=== PATIENT | female | born 1970 | race Caucasian/White ===

== ENCOUNTER → 2016-12-18 | Outpatient (CLI) | payer BC ==
[~2016-12-18] MED LIST: ADVIN25/60 INH; ALBU1AER9 INH; CALCTAB5 PO; DILT240C56 PO; FEXO5TAB2 PO; HYDR25TA5 PO; KRIL1CAP16 PO; LEVO75TA PO; MOME50SP5; MONT1TAB3 PO; NPR250 PO; POME1CAP PO; PROM12.57 PO; PRVC/40 PO; SUMA100T16 PO; [UNRECOGNIZED DRUG - CODE] PO; [UNRECOGNIZED DRUG - CODE] TOP
--- NOTE | 2016-12-19 14:41 | MAMMOGRAPHY REPORT ---
BILATERAL DIGITAL SCREENING MAMMOGRAM TOMOSYNTHESIS WITH CAD: 12/18/2016 CLINICAL HISTORY: Routine screening. Patient has no complaints. TECHNIQUE: Breast tomosynthesis in addition to standard 2D mammography was performed. Current study was also evaluated with a Computer Aided Detection (CAD) system. COMPARISON: Comparison is made to exams dated: 12/13/2015 mammogram, 02/14/2015 mammogram, 11/23/2014 m ammogram, 09/14/2013 mammogram, 09/05/2012 mammogram, and 09/03/2011 mammogram - [facility]. BREAST COMPOSITION: The tissue of both breasts is heterogeneously dense, which may obscure small ma sses. FINDINGS: There is reniform, benign-appearing 7.5 mm mass in the upper outer quadrant of the right b reast. This appears stable in size based on prior mammograms dating back to at least 09/14/2013, th erefore likely benign. No new suspicious mass, architectural distortion or cluster of microcalcific ations is seen. IMPRESSION: ACR BI-RADS CATEGORY 1: NEGATIVE There is no mammographic evidence of malignancy. A 1 year screening mammogram is recommended. The p atient will receive written notification of the results. Approximately 10% of breast cancers are not detected with mammography. A negative mammographic repor t should not delay biopsy if a clinically suggestive mass is present. Savita Bagley M.D. ay/:12/18/2016 21:58:04 City Manager: Laila CRAWFORD(R)(M), [facility] letter sent: Normal 1/2 BI-RADS Code: ACR BI-RADS Category 1: Negative
== END | disposition home or self-care (01) ==
LOC: C.MAMM 07:28
PROVIDERS: ATTEND Obstetrics & Gynecology
DX: Z12.31 Encounter for screening mammogram for malignant neoplasm of breast (principal)

== ENCOUNTER → 2017-03-14 | Outpatient (CLI) | payer BC ==
[~2017-03-14] MED LIST changes: +DILT-203 PO; -DILT240C56 PO
== END | disposition home or self-care (01) ==
LOC: C.PAPS 10:04
PROVIDERS: ATTEND Obstetrics & Gynecology
DX: Z01.419 Encounter for gynecological examination (general) (routine) without abnormal findings (principal)

== ENCOUNTER 2017-09-13 08:41 | Observation (INO) | payer BC ==
[2017-08-29 13:14] VITALS: BMI 35.0
--- NOTE | 2017-08-29 14:02 | PAT Medication Instructions ---
Service Date Aug 29, 2017. Current Home Medication List Adapalene Gel (Differin), 1 APPLN TOP DAILY PRN for UD Albuterol Hfa (Ventolin Hfa), 2 PUFFS INH Q4H PRN for RN Cholecalciferol (Vitamin D3), 1 CAP PO QPM Coenzyme Q10 (Ubidecarenone) (Coq10), 100 MG PO QAM Cyanocobalamin (Vitamin B12), 1,000 MCG PO QAM Diltiazem Hcl Coated Beads (Diltiazem Cd), 240 MG PO BID Fexofenadine-Pseudoephedrine (Rebecca-D 12 Hour Allergy), 1 TAB PO BID Fluticasone Prop/Salmeterol (Advair Diskus 250/50 60 Dose), 1 PUFF INH BID Hydrochlorothiazide (Hydrochlorothiazide), 25 MG PO HS Krill Oil (Una-3 Krill Oil 1000 mg), 1 CAP PO QPM Levothyroxine Sodium (Synthroid), 75 MCG PO Q2D Levothyroxine Sodium (Levothyroxine Sodium), 1.25 TAB PO Q2D Mometasone Furoate (Nasal) (Mometasone Furoate), 1 SPRAY INTNAS BID Montelukast Sodium (Singulair), 10 MG PO HS Naproxen Ds (Naprosyn Ds), 550 MG PO BID Pomegranate (Punica Granatum) (Pomegranate), 1 CAP PO QPM Potassium Ext Rel (Klor-Con), 20 MEQ PO QPM Pravastatin Sod (Pravastatin Sodium), 40 MG PO HS Promethazine (Phenergan ), 25 MG PO Q6H PRN for Nausea or Vomiting Sumatriptan Succinate (Imitrex), 100 MG PO PRN Varenicline Tartrate (Chantix), 1 TAB PO BID [Calcium ], 600 MG PO HS Medication Instructions For Your Scheduled Surgery - Check with surgeon for instructions: Naproxen Ds (Naprosyn Ds), 550 MG PO BID - Continue as directed: Levothyroxine Sodium (Synthroid), 75 MCG PO Q2D Levothyroxine Sodium (Levothyroxine Sodium), 1.25 TAB PO Q2D - Hold the following medications 2 weeks prior to surgery: Pomegranate (Punica Granatum) (Pomegranate), 1 CAP PO QPM Krill Oil (Una-3 Krill Oil 1000 mg), 1 CAP PO QPM Coenzyme Q10 (Ubidecarenone) (Coq10), 100 MG PO QAM - Hold the following medications 24 hours prior to surgery: Adapalene Gel (Differin), 1 APPLN TOP DAILY PRN for UD - Hold the following medications the morning of surgery: Varenicline Tartrate (Chantix), 1 TAB PO BID Fexofenadine-Pseudoephedrine (Rebecca-D 12 Hour Allergy), 1 TAB PO BID Cyanocobalamin (Vitamin B12), 1,000 MCG PO QAM - Take the following medications the morning of surgery with a sip of water: Sumatriptan Succinate (Imitrex), 100 MG PO PRN i(if needed) Promethazine (Phenergan ), 25 MG PO Q6H PRN for Nausea or Vomiting i(if needed) Mometasone Furoate (Nasal) (Mometasone Furoate), 1 SPRAY INTNAS BID Fluticasone Prop/Salmeterol (Advair Diskus 250/50 60 Dose), 1 PUFF INH BID Albuterol Hfa (Ventolin Hfa), 2 PUFFS INH Q4H PRN for RN i(if needed) Diltiazem Hcl Coated Beads (Diltiazem Cd), 240 MG PO BID - Take the following medications as scheduled the night before surgery: [Calcium ], 600 MG PO HS Varenicline Tartrate (Chantix), 1 TAB PO BID Sumatriptan Succinate (Imitrex), 100 MG PO PRN i(if needed) Promethazine (Phenergan ), 25 MG PO Q6H PRN for Nausea or Vomiting i(if needed) Potassium Ext Rel (Klor-Con), 20 MEQ PO QPM Pravastatin Sod (Pravastatin Sodium), 40 MG PO HS Mometasone Furoate (Nasal) (Mometasone Furoate), 1 SPRAY INTNAS BID Montelukast Sodium (Singulair), 10 MG PO HS Hydrochlorothiazide (Hydrochlorothiazide), 25 MG PO HS Fluticasone Prop/Salmeterol (Advair Diskus 250/50 60 Dose), 1 PUFF INH BID Fexofenadine-Pseudoephedrine (Rebecca-D 12 Hour Allergy), 1 TAB PO BID Cholecalciferol (Vitamin D3), 1 CAP PO QPM Diltiazem Hcl Coated Beads (Diltiazem Cd), 240 MG PO BID Albuterol Hfa (Ventolin Hfa), 2 PUFFS INH Q4H PRN for RN i(if needed) If you have any questions please call us at [phone] or [phone] or [phone]
[2017-08-29 14:53] LABS: BASO % 0.2 %; BASO ABS # 0.02 K/uL (0-0.2); EOS % 0.9 %; EOS ABS # 0.09 K/uL (0-0.5); HEMATOCRIT 42.8 % (37-47); IG# 0.04 K/uL (0.00-0.02); LYMPH % 28.8 %; LYMPH ABS # 2.73 K/uL (1.2-3.4); MEAN CELL VOLUME 89.5 fL (80-100); MEAN CORPUSCULAR HEMOGLOBIN 31.4 pg (25-34); MEAN PLATELET VOLUME 9.9 fL (7.4-10.4); MONO % 11.2 %; MONO ABS # 1.06 K/uL (0.11-0.59); NEUT % 58.5 %; NEUT ABS # 5.54 K/uL (1.4-6.5); PLATELET COUNT 378 K/uL (130-400); RED CELL DISTRIBUTION WIDTH CV 13.2 % (11.5-14.5); WHITE BLOOD COUNT 9.48 K/uL (4.8-10.8)
[2017-08-29 14:55] LABS: CALCIUM 9.4 mg/dl (8.5-10.1); CREATININE 0.73 mg/dl (0.60-1.20); POTASSIUM 3.2 mmol/L (3.5-5.1)
[~2017-09-13] VITALS: Ht 154.9 cm; Wt 83.8 kg
[2017-09-13] VITALS (9 sets, daily range): BP systolic 107–139; BP diastolic 61–77; PULSE 88–105; TEMP 36.4–36.9; O2SAT 92–98; Ht 154.9 cm; Wt 83.8 kg
[~2017-09-13 08:41] MED LIST changes: -ALBU1AER9 INH; +CALCIUM PO; -CALCTAB5 PO; +CHOL2000 PO; +CLINDAMYCIN 600 MG/54 ML D5W 50 ML IV SCH; +COEN100C7 PO; +CYAN100020 PO; +GENTAMICIN INJ 130 MG in DEXTROSE 5% 100ML 100 ML IV SCH; +LACTATED RINGER'S 1000ML 1,000 ML IV SCH; +LEVO75TA5 PO; -MOME50SP5; +MOME6000 INTNAS; +NAPR550T61 PO; -NPR250 PO; +POTA-639 PO; +VAREPAK2 PO; +VNTHFA/IN INH; -[UNRECOGNIZED DRUG - CODE] PO
[2017-09-13] MEDS ORDERED: DEXT30TA7 PO (09:10)
[2017-09-13] MEDS ORDERED: MIDAZOLAM HCL 1 MG/ML 2ML VIAL ONE (10:06)
[2017-09-13] MEDS ORDERED: PROPOFOL IV EMULSION 10 MG/ML 20 ML VIAL IV ONE (10:06)
[2017-09-13] MEDS ORDERED: ROCURONIUM BROMIDE 10 MG/ML 5 ML VIAL IV ONE ×2 (10:06→12:22)
[2017-09-13] MEDS ORDERED: LIDOCAINE HCL 2% 2 ML VIAL (20MG/ML) ONE (10:06)
[2017-09-13] MEDS ORDERED: FENTANYL CITRATE INJ 50 MCG/1 ML 2 ML VIAL ONE ×4 (10:06→12:28)
--- NOTE | 2017-09-13 10:23 | History & Physical Bridge Note ---
H&P Re-Evaluation Bridge Note: I have examined the patient, reviewed the History & Physical and in the interval since the performance of the History & Physical I have noted the following changes of clinical significance: No changes noted
[2017-09-13] MEDS ORDERED: BUPIVACAINE 0.5 % 5 MG/1 ML MPF 30ML VIAL ONE (10:45)
[2017-09-13] MEDS ORDERED: METHYLENE BLUE 0.5% 10 ML VIAL ONE (10:45)
[2017-09-13] MEDS ORDERED: ACETAMINOPHEN 1000 MG/100 ML IV IV ONE (10:49)
[2017-09-13] MEDS ORDERED: PROMETHAZINE HCL INJ 6.25 MG in SODIUM CHLORIDE 0.9% 50ML 50 ML IV PRN (11:45)
[2017-09-13] MEDS ORDERED: EpHEDrine SULFATE INJ 50 MG/ML AMP IV PRN (11:45)
[2017-09-13] MEDS ORDERED: ONDANSETRON INJ 2 MG/ML 2 ML VIAL IV PRN (11:45)
[2017-09-13] MEDS ORDERED: HYDROmorphone INJ 1 MG/ML SYR IV PRN (11:45)
[2017-09-13] MEDS ORDERED: ATROPINE SULFATE 0.1 MG/ML 5ML SYR IV PRN (11:45)
[2017-09-13] MEDS ORDERED: DEXAMETHASONE SOD INJ 4 MG/ML VIAL ONE (12:08)
[2017-09-13] MEDS ORDERED: ONDANSETRON INJ 2 MG/ML 2 ML VIAL ONE (12:08)
[2017-09-13] MEDS: TISSEEL FIBRIN SEALANT 4ML TOP ONE ×2 (12:47→12:49)
[2017-09-13] MEDS ORDERED: NEOSTIGMINE METHYLSULFATE 5 MG/5 ML SYR ONE (12:56)
[2017-09-13] MEDS ORDERED: GLYCOPYRROLATE INJ 0.2 MG/ML VIAL ONE (12:56)
[2017-09-13] MEDS ORDERED: KETOROLAC TROMETHAMINE 30 MG/ML VIAL ONE (12:56)
[2017-09-13] MEDS ORDERED: LACTATED RINGER'S 1000ML 1,000 ML IV SCH (13:12)
[2017-09-13] MEDS ORDERED: OXYC-57 PO (13:15)
[2017-09-13] MEDS ORDERED: IBUPROFEN 600 MG TAB PO PRN (13:15)
[2017-09-13] MEDS ORDERED: MEPERIDINE HCL 50 MG/ML CARP IV PRN ×2 (13:15)
[2017-09-13] MEDS ORDERED: SIMETHICONE 80 MG CHEW PO PRN (13:15)
[2017-09-13] MEDS ORDERED: ACETAMINOPHEN 325 MG TAB PO PRN (13:15)
[2017-09-13] MEDS ORDERED: OXYCODONE/ACETAMINOPHEN 5-325 TAB PO PRN ×2 (13:15)
[2017-09-13] MEDS ORDERED: KETOROLAC TROMETHAMINE 30 MG/ML VIAL IV. PRN (13:15)
--- NOTE | 2017-09-13 13:16 | Discharge Instructions ---
Discharge Instructions Date of Service Sep 13, 2017. Admission Reason for Admission: Dysmenorrhea Discharge Discharge Diagnosis / Problem: s/p laproscopic hysterectomy , removal of bilateral tubes, cystoscopy Discharge Goals Goal(s): Specific Goal(s) Activity Recommendations Activity Limitations: per Instructions/Follow-up section . Instructions / Follow-Up Instructions / Follow-Up POST OPERATIVE: BOWEL FUNCTION/MEDICATIONS: 1. Constipation pain and discomfort are the most common complaints 5-7 days after surgery. Points 2-6 address the things that can help. 2. Chewing gum can help stimulate the gut and help improve digestion and motility. 3. Milk of Magnesia 1-2 times per day until return of bowel function. 4. Colace is a stool softener that helps. Taking this 2-3 times per day until bowel function returns to normal is highly recommended. 5. Dulcolax is a laxative that may be used if several days have passed without a bowel movement. Alternatively Miralax may be used daily instead. 6. Drink plenty of fluids as this will also reduce constipation. 7. Narcotic pain medications will be prescribed by your physician. They are safe to use and we encourage you to use them. If you are not allergic, ibuprofen will also be prescribed. Many patients will be able to transition off of the narcotic medications to ibuprofen by postoperative day 3. ACTIVITY RECOMMENDATIONS: 1. Get plenty of rest and listen to your body. If you are tired, take a nap. 2. You may shower, but do not take a tub bath until you see your doctor at the 2 week post operative visit. 3. Absolutely NO intercourse and nothing in the vagina until you are examined by your doctor at the 6 week visit. At that visit it will be determined when such activities can be resumed. This can range from 6-12 weeks after your surgery depending on healing time. 4. The main physical activity in the first week should be walking. By the second week you can slowly increase activity. There are no limits on walking up and down stairs. 5. Do not lift more than 5-10 lbs for 4 weeks. Remember the "one-handed rule", i.e. if you can lift something with only one hand it's likely okay. 6. Minimize director of outreach like vacuuming and exercising for 4 weeks. "Overdoing it" can lead to incisions not healing, pain and vaginal bleeding , so again, listen to your body. 7. Driving can be resumed when you feel able. Do not drive within 24 hours of taking a narcotic medication. EXPECTATIONS: 1. Vaginal spotting, bleeding and discharge are common after surgery. There may even be an odor to the discharge which is often related to sutures used in the vagina. If you experience heavy vaginal bleeding, call the office number day or night [phone]. 2. Bladder discomfort is common after surgery from the catheter. This usually resolves in 1-2 weeks. 3. By the end of the 3rd or 4th week you should be feeling much better. It may take up to 6 weeks for your energy levels to return to normal. 4. Narcotic medications have side effects such as: dizziness, headache, nausea and/or vomiting. If you suspect your pain medication is causing problems, call our office and we may be able to prescribe an alternate medication. 5. The skin incisions are often covered with a liquid bandage. This will gradually peel off over time. CALL THE OFFICE IF YOU HAVE ANY OF THE FOLLOWIN. Temperature of 101 degrees or higher. 2. Severe abdominal or pelvic pain not relieved by pain medication. 3. Persistent nausea or vomiting. 4. Increased pain with urination or difficulty urinating. 5. Bright red bleeding that soaks more than 1 pad per hour. CONTACT PHONE NUMBERS: Main Office: [phone] Surgical Nurse: [phone] extension [phone] FOLLOW-UP: Post-Operative Appointments: * Individual instructions will have been given about the timing of your first examination, but this is usually at the end of the second week home. * You will need to call the office at soon after discharge to make the appointment for your post-op check-up if it has not already been scheduled. * Additional information regarding activity, sexual intercourse and when to return to work will be given at this appointment. WE WISH YOU A SPEEDY RECOVERY! Current Hospital Diet Patient's current hospital diet: Discharge Diet Recommended Diet: Regular Diet Procedures Procedures Performed: Total Laparoscopic Hysterectomy Bilateral Salpingectomy Robot Asisst; Cystoscopy Pending Studies Studies pending at discharge: no Medical Emergencies . Who to Call and When: Medical Emergencies: If at any time you feel your situation is an emergency, please call 911 immediately. . Non-Emergent Contact Non-Emergency issues call your: Manager Plumbing . . "Provider Documentation" section prepared by Belkis North. . VTE Core Measure Inpt VTE Proph given/why not?: Treatment not indicated [place] Drug Monitoring Program Search Results: patient reviewed within database, no issues identified
--- NOTE | 2017-09-13 13:17 | [facility] Post Operative Brief Note ---
Immediate Operative Summary Operative Date Sep 13, 2017. Pre-Operative Diagnosis Dysmenorrhea Post-Operative Diagnosis Same as preop Procedure(s) Performed Total Laparoscopic Hysterectomy Bilateral Salpingectomy Robot Asisst; Cystoscopy Surgeon Dr. North Transitional Care Liaison Surgeon(s) Dr. Maharaj Estimated Blood Loss 50 ml Findings small, normal uterus, nl tubes, ovs. Specimens A. Cervix, Uterus, Bilateral Fallopian Tubes Drains wilburn Anesthesia gett Complication(s) None Disposition Recovery Room / PACU
[2017-09-13] MEDS: FENTANYL CITRATE INJ 50 MCG/1 ML 2 ML VIAL IV PRN ×2 (13:45→13:49)
[2017-09-13] MEDS ORDERED: IV FLUIDS COMPLETED PRN (14:00)
--- NOTE | 2017-09-13 14:26 | OPERATIVE REPORT ---
DATE OF OPERATION: 09/13/2017 PREOPERATIVE DIAGNOSES: 1. Failed ablation. 2. Dysmenorrhea and pelvic pain. POSTOPERATIVE DIAGNOSES: Same. PROCEDURES: 1. Total laparoscopic hysterectomy and bilateral salpingectomy via da Natali assist. 2. Cystoscopy. SURGEON: Belkis North MD CATALOG LIBRARY ASSISTANT: Melanie Maharaj DO ANESTHESIA: General per endotracheal tube. ESTIMATED BLOOD LOSS: 50 mL. FLUIDS: 1550 mL. URINE OUTPUT: 300 mL of clear yellow urine drained from the bladder at the end of the procedure. INDICATIONS: Loren is a 1, who had significant dysmenorrhea and heavy periods, for which she underwent an endometrial ablation. Unfortunately, this failed and she has cyclic pain and spotting. FINDINGS: Normal very small mobile uterus. Normal tubes and ovaries noted bilaterally. COMPLICATIONS: None. DRAINS: Guzman. DISPOSITION: To recovery room in stable condition. DESCRIPTION OF PROCEDURE: The patient was taken to the operating room, where she was identified verbally and by bracelet. She was placed in dorsal supine position and general anesthesia was induced. She was then placed in dorsal lithotomy position in [facility]-cane stirrups. Her arms were carefully prepped and tucked at her sides. Her chest was restrained and the wet process miller head assistant was placed. The patient was prepped and draped in normal sterile fashion. Timeout was held, identifying correct patient, procedure and positioning as well as preoperative antibiotics. Attention was turned to the vagina, where a speculum was placed. The anterior lip of the cervix was grasped with single tooth tenaculum. Uterus sounded to 6 cm and dilated to #23 Muna dilator. A [employer] uterine manipulator was placed into the uterus. The green cup was sutured to the cervix via suture of 0 Vicryl at 9 o'clock on the cervix. Instruments were then removed and a Guzman catheter was placed. Gloves were then changed. Attention was then turned to the abdomen, where a supraumbilical incision was made with a knife. Veress needle was placed through this at opening pressure of 6 mmHg. The abdomen was insufflated with 2.5 liters of carbon dioxide gas. A 12-mm optical trocar was then placed through this incision and direct intra-abdominal placement was confirmed via the laparoscope. Then under direct visualization, two 8-mm da Natali trocars were placed in left and right lower quadrant and a 10-mm accessory trocar in the left upper quadrant. The patient was placed into Trendelenburg position. The pelvis was evaluated with the above noted findings. The da Natali nursing surgical services director device was attached to the trocars and the byproducts operator proceeded to the console. First on the right, the tube was excised and passed out through the accessory trocar. The tubo-ovarian ligament and round ligament were cauterized and incised with hot senait. A bladder flap was created sharply with senait anteriorly. The uterine artery on the right was cauterized and cut with hot senait. In on a similar fashion on the left side, the tube was removed using hot senait and removed through the accessory trocar. The tubo-ovarian ligament and round ligament were cauterized and cut. The bladder flap was finished. The uterine artery was skeletonized, cauterized and cut. The bladder flap was created anteriorly. A colpotomy incision was then made in 365 degrees until the specimen was removed from the vaginal cuff and then was removed through the vagina. A 2-0 V-Loc suture was used to reapproximate the vaginal cuff. Cystoscopy was then performed with a 70-degree scope. There were no stitches or abnormalities noted in the bladder. The ureters were both visualized and found to be effluxing urine. Cystoscopy was then discontinued. The previous Guzman catheter had been removed and a new clean Guzman catheter was then placed sterilely. Tisseel was then used to treat the vaginal cuff and the intra-abdominal portion was completed. All instruments were removed from the abdomen. The da Ntaali nursing surgical services director device was removed from the patient. The gas was released from the abdomen. The trocars were removed. A fascial stitch at the supraumbilical trocar site was placed of 0 Vicryl. All incisions were then closed with 4-0 Vicryl in a subcuticular fashion. The incisions were injected with 0.5% Marcaine and treated with Dermabond. This ended the procedure. All sponge, lap and needle counts were correct x2. The patient tolerated the procedure well and was taken to recovery room in stable condition. I attest to the content of the Intraoperative Record and any orders documented therein. Any exception s are noted below.
--- NOTE | 2017-09-13 14:30 | NUR ---
A NOTE: Pt arrived to room 476 via bed. Sleepy but arouses to name and answers questions. Oriented to room, call holliday and post op rounding. See interventions for full assessment. Guzman intact and patent. Wearing SCDs. O2 on via n/c at 2L. IV infusing LR@125. Bed locked and in lowest position. Side rails up x2. Call holliday within reach. Hourly rounding maintained. Family at bedside. Addendum: 09/13/17 at 1642 by Maira Nixon RN OBS NOTE upon arrival.
--- NOTE | 2017-09-13 15:26 | Anesthesiology Progress Note ---
Anesthesia Post Op Note Date & Time Sep 13, 2017 at 15:26 Vital Signs Pain Intensity: 8.0 Vital Signs Past 12 Hours Date Time Temp Pulse Resp B/P (MAP) Pulse Ox O2 Delivery O2 Flow Rate FiO2 09/13/17 15:05 89 16 127/74 (91) 95 Nasal Cannula 2.0 09/13/17 15:02 36.6 92 16 133/74 (93) 92 Nasal Cannula 2.0 09/13/17 14:55 93 Nasal Cannula 2.0 09/13/17 14:22 92 15 09/13/17 14:22 92 15 93 09/13/17 14:20 104/56 09/13/17 14:17 82 16 09/13/17 14:17 81 16 93 09/13/17 14:15 112/58 09/13/17 14:12 95 16 94 09/13/17 14:12 95 16 09/13/17 14:10 125/72 09/13/17 14:07 95 15 93 09/13/17 14:07 96 15 09/13/17 14:06 91 18 09/13/17 14:06 92 18 94 09/13/17 14:05 109/60 09/13/17 14:03 36.3 94 16 109/60 (84) 93 Nasal Cannula 3 Oxymask 09/13/17 14:01 96 13 09/13/17 14:01 96 13 91 09/13/17 14:00 101/71 09/13/17 13:56 88 13 90 09/13/17 13:56 89 13 09/13/17 13:55 112/63 09/13/17 13:51 88 15 90 09/13/17 13:51 88 15 09/13/17 13:50 90 15 111/78 92 09/13/17 13:50 91 15 09/13/17 13:45 95 18 09/13/17 13:45 95 18 116/73 92 09/13/17 13:40 98 22 09/13/17 13:40 99 22 115/72 96 09/13/17 13:35 95 19 117/71 96 09/13/17 13:35 95 19 09/13/17 13:30 95 18 09/13/17 13:30 95 18 119/71 96 09/13/17 13:29 95 21 09/13/17 13:29 95 21 97 09/13/17 13:25 116/75 09/13/17 13:24 101 19 09/13/17 13:24 101 19 99 09/13/17 13:20 118/64 09/13/17 13:19 98 23 09/13/17 13:19 36.3 100 20 110/76 (102) 97 Oxymask 10 09/13/17 13:19 98 23 110/76 97 09/13/17 09:12 36.6 105 18 139/77 (97) 98 Room Air Notes Mental Status: alert / awake / arousable, participated in evaluation Pt Amnestic to Procedure: Yes Nausea / Vomiting: adequately controlled Pain: adequately controlled Airway Patency, RR, SpO2: stable & adequate BP & HR: stable & adequate Hydration State: stable & adequate Anesthetic Complications: no major complications apparent
--- NOTE | 2017-09-13 17:30 | NUR ---
A: Guzman Cath pulled, Right IV site saline locked and D/C'd. Patient tolerating PO liquid dinner.
--- NOTE | 2017-09-13 18:30 | NUR ---
OBS: Patient up to void, voided small amount in hat, walking around in room, left wrist SL site intact.
--- NOTE | 2017-09-13 19:35 | NUR ---
OBS: Patient's vital remain stable at this time. Patient up, moving, and voiding. Patient eating dinner at this time. Percocet given prior to 1935 assessment. Patient's lungs are clear, bowel sounds are present although patient denies passing gas. Patient using triflow. Saline lock remains intact in left hand at this time. Patient's 4 lap site are clean and dry with dermabond intact. No vaginal bleeding present.
[2017-09-13] MEDS ORDERED: INFLUENZA ADMINISTRATION CHARGE ONE (20:45)
[2017-09-13] MEDS ORDERED: INFLUENZA VIRUS QUAD VACCINE 0.5 ML SYR IM. ONE (20:45)
[2017-09-13] MEDS ORDERED: DOCUSATE SODIUM 100 MG CAP PO SCH (21:00)
--- NOTE | 2017-09-13 21:25 | NUR ---
OBS: Patient up, moving, and voiding. Patient reports Percocet relieving her pain. Patient able to drink fluids and keep dinner down and does not feel nauseated from dinner or pain medication. Saline lock was removed at 2049. Discharge instructions read to patient at 2114. Patient verbalized understanding. Patient discharged in care of at 2124.
--- NOTE | 2017-09-17 09:19 | DISCHARGE SUMMARY ---
ADMISSION DIAGNOSES: Failed ablation with worsening dysmenorrhea. DISCHARGE DIAGNOSES: Same. PROCEDURES: Total laparoscopic hysterectomy and bilateral salpingectomy with cystoscopy. HISTORY OF PRESENT ILLNESS: The patient is a 47-year-old white female G0, status post ablation who has worsening pain, dysmenorrhea over the past year. This pain has become debilitating and she would like to proceed with hysterectomy. She has contraindications to estrogen. She declines other hormonal manipulation. She has very little bleeding, just severe cramping and this is interfering with her daily life and ability to work. For the rest of the patient's detailed history and physical, please see her dictated history and physical. ASSESSMENT: A 47-year-old G0 with debilitating pelvic pain/dysmenorrhea status post failed ablation. HOSPITAL COURSE: The patient was admitted and underwent a total laparoscopic hysterectomy and bilateral salpingectomy via the da Natali with cystoscopy. ESTIMATED BLOOD LOSS: 50 mL. FINDINGS AT THE TIME OF SURGERY: Revealed a very small mobile uterus, normal tubes and ovaries noted bilaterally. The patient's postoperative course was uncomplicated. She tolerated a regular diet, voided without difficulty after the removal of her Guzman, ambulated, tolerated oral pain medications. She was discharged home on postoperative day 0 with Percocet and ibuprofen for pain and to follow up in 2 weeks for postoperative visit.
== END 2017-09-13 21:25 | disposition home or self-care (01) ==
LOC: C.ACU 08:41 → C.MS4N 13:14 → ENRESERV 14:09
PROVIDERS: ADMIT Obstetrics & Gynecology; ATTEND Obstetrics & Gynecology
DX: N94.6 Dysmenorrhea, unspecified (principal); E78.5 Hyperlipidemia, unspecified; I10 Essential (primary) hypertension; J45.909 Unspecified asthma, uncomplicated; E03.9 Hypothyroidism, unspecified; G47.33 Obstructive sleep apnea (adult) (pediatric); F17.200 Nicotine dependence, unspecified, uncomplicated; K21.9 Gastro-esophageal reflux disease without esophagitis; F41.9 Anxiety disorder, unspecified; Z82.5 Family history of asthma and other chronic lower respiratory diseases; Z82.49 Family history of ischemic heart disease and other diseases of the circulatory system; Z80.49 Family history of malignant neoplasm of other genital organs; Z80.3 Family history of malignant neoplasm of breast; Z84.1 Family history of disorders of kidney and ureter; Z83.42 Family history of familial hypercholesterolemia; Z88.0 Allergy status to penicillin

== ENCOUNTER → 2017-12-24 | Outpatient (CLI) | payer OTHER ==
[~2017-12-24] MED LIST changes: -CLINDAMYCIN 600 MG/54 ML D5W 50 ML IV SCH; +DEXT30TA7 PO; -GENTAMICIN INJ 130 MG in DEXTROSE 5% 100ML 100 ML IV SCH; -LACTATED RINGER'S 1000ML 1,000 ML IV SCH; +NAPR-1168 PO; -NAPR550T61 PO; +OXYC-57 PO
--- NOTE | 2017-12-24 12:52 | MAMMOGRAPHY REPORT ---
BILATERAL DIGITAL SCREENING MAMMOGRAM TOMOSYNTHESIS WITH CAD: 12/24/2017 CLINICAL HISTORY: Routine screening. Patient has no complaints. TECHNIQUE: Breast tomosynthesis in addition to standard 2D mammography was performed. Current study was also evaluated with a Computer Aided Detection (CAD) system. COMPARISON: Comparison is made to exams dated: 12/18/2016 mammogram, 12/13/2015 mammogram, 11/23/2014 ma mmogram, 09/14/2013 mammogram, 09/05/2012 mammogram, and 02/19/2006 mammogram - [facility] enter. BREAST COMPOSITION: The tissue of both breasts is heterogeneously dense, which may obscure small mas ses. FINDINGS: The parenchymal pattern is similar to prior exams. No developing mass, architectural dist ortion or cluster of suspicious microcalcifications is seen in either breast. IMPRESSION: ACR BI-RADS CATEGORY 2: BENIGN There is no mammographic evidence of malignancy. A 1 year screening mammogram is recommended. The pa tient will receive written notification of the results. Approximately 10% of breast cancers are not detected with mammography. A negative mammographic report should not delay biopsy if a clinically suggestive mass is present. Savita Bagley M.D. ay/:12/24/2017 08:47:27 Umbrella Repairer: Jerrica CRAWFORD(R)(M), [facility] letter sent: Normal 1/2 BI-RADS Code: ACR BI-RADS Category 2: Benign
== END | disposition home or self-care (01) ==
LOC: C.MAMM 08:03
PROVIDERS: ATTEND Obstetrics & Gynecology
DX: Z12.31 Encounter for screening mammogram for malignant neoplasm of breast (principal)

== ENCOUNTER → 2018-01-31 | Outpatient (CLI) | payer OTHER ==
--- NOTE | 2018-01-31 09:00 | DIAGNOSTIC IMAGING REPORT ---
VENOUS DOPP LOWER EXT UNILAT HISTORY: 47 years-old Female LEFT LEG PAIN AND SWELLING, R/O DVT acute left leg pain and swelling COMPARISON: None available TECHNIQUE: Multiple real-time sonographic images of the left lower extremity deep venous structures were obtained assessing grayscale appearance, color and spectral flow FINDINGS: There is normal compressibility, flow, phasicity and augmentation of the left lower extremity deep venous structures. IMPRESSION: No sonographic evidence of deep venous thrombosis. The above report was generated using voice recognition software. It may contain grammatical, syntax or spelling errors. Electronically signed by: Kieran Rollins M.D. 01/31/2018 8:58 AM Dictated Date/Time: 01/31/2018 8:57 AM
== END | disposition home or self-care (01) ==
LOC: C.ULTRBC 08:27
PROVIDERS: ATTEND Family Medicine
DX: R60.9 Edema, unspecified (principal)

== ENCOUNTER 2020-06-12 03:58 | Inpatient (IN) ==
[2020-06-12] MEDS ORDERED: NITROGLYCERIN SL 0.4 MG/TAB TAB SL STA (04:15)
[2020-06-12] MEDS ORDERED: ASPIRIN 81 MG CHEW PO STA (04:15)
--- NOTE | 2020-06-12 04:19 | Emergency Department Note ---
Impression & Plan Acute non-ST elevation myocardial infarction (NSTEMI) ED Provider Note Name: FELICITAS MILLER Age: 49 Sex: F Arrives Via: Walk-In Informant: Patient, ED Provider: Michael Mayes MD Chief Complaint: Left chest pain Impression: Acute non-ST elevation myocardial infarction (NSTEMI) Medical Decision Makin yr old female with history DMII, HTN, DLP, Tobacco use, asthma and father with CAD history arrives with left chest pain to shoulder, neck and back. This is second occurrence in last 24 hours. EKG on arrival with ischemic changes from previous EKG but no overt STEMI. Initially pain improving some with SLNTG/Paste, as well as given ASA 324mg PO. Repeat EKG similar as well. CXR OK. Labs unremarkable other than trop elevation to .118. Patient given 3 round slntg and pain no resolved, if anything mildly worsening. At this time heart alert called as patient continued pain with abnormal EKG and elevated trop. She was given IV fentanyl with improvement pain and repeat EKG at this time actually shows significant improvement. Prior Medical Record and Triage/Nursing Notes reviewed by Me Additional history obtained from chart Differentials:Cardiac ischemia, aortic dissection, pulmonary embolism, pneumothorax, pneumonia, pericarditis, myocarditis, esophageal rupture, GERD, cholecystitis, pancreatitis, musculoskeletal, as well as other pathologies. Vital Signs: reviewed and remarkable for no significant abnormalities Interventions: ASA 324mg PO, SLNTG x 3, Nitro Paste, Fentanyl 50mcg IV Labs:Reviewed and remarkable for +trop, modestly elevated WBC/Plts Imaging:X ray results are stated below per my interpretation: Chest: 1 view: No infiltrate, no effusion, normal cardiac border. EKG:Per My Interpretation: Indication Left Chest Pain: NSR 70 bpm, qtc 434. There are ST depression ant/laterally, and < 1mm st elevation III. T wave inversions noted anterior as well. No ectopy.. Compared to EKG 11/10/19 ischemic changes are new. Cardiac/Tele Monitoring: Cardiac Monitoring: An Order was placed for continuous cardiac monitoring. The monitor shows a rate of 75 with a normal sinus rhythm. Consults:Dr Campbell Interventional Cardiology who took patient to irrigation laborer Plan: Disposition: Dial Lathe Operator Condition: Fair Prescriptions: none PDMP: n/a History of Present Illness:49 yr old female with history dmii, htn, dlp, asthma, tobacco use arrives for evaluation of left chest pain. She notes she was sitting at home yesterday around 1 pm and developed crushing left chest pain. Radiated to left shoulder, back and neck. Nothing made better nor worse. Eventually eased up after about an hour. Was awoken about an hour ago with similar left chest pain though much less in intensity. Denies palpitations, sob, syncope, nausea, vomiting, nor other symptoms. Denies previous cardiac history. Father with [place] in his 50s. No recent travel nor PE/DVT risks/history. She denies falls, trauma, injury nor recent increase in exertion. Denies fevers, chills, abdominal pain, lower back pain, urinary/bowel changes, nor other symptoms. No medications prior to arrival. ROS: See above HPI for pertinent positives & negatives. A total of 10 systems reviewed and were otherwise negative. Past Medical History:dmii, htn, dlp, asthma, tobacco use Past Surgical History:hysterectomy Family History:Extensive, see below. Father with [place] Social History:Smoker, lives with Home Medications:See Below Allergies:PNC, Benadryl Vitals:Blood Pressure: 119/78, Pulse 76, RR 18, T 36.3C, O2 97% on RA Physical Exam: GENERAL: Patient is uncomfortable appearing and in mild distress. EYES: No scleral icterus, unremarkable pupils. ENT: Mucous membranes moist, no nasal congestion. NECK: No masses appreciated, nomeningismus, trachea is midline. RESPIRATORY: No dyspnea. Clear to auscultation and equal bilaterally. No wheeze, no rhonchi. CARDIOVASCULAR: Regular rate and rhythm.No murmurs, rubs, gallops appreciated. GASTROINTESTINAL: Abdomen soft, non-tender, no peritonitis.Bowel sounds positive.No masses appreciated. BACK: No midline tenderness, no CVA tenderness EXTREMITIES: Normal motion all extremities, no cyanosis, no edema. NEUROLOGIC: Alert and oriented, no acute motor or sensory deficits, no focal weakness, cranial nerves grossly intact. SKIN: No rash, no jaundice, no diaphoresis. PSYCH: Appropriate GCS: 15 ED Course: Times/Reassessments: Mild improvement pain with nitro though still continues. Much improved with fentanyl Critical Care: I have personally spent 45 minutes of critical care time in the direct management of this patient. Acute NSTEMI with transfer to irrigation laborer. This was a life/limb threatening event. This 45 minutes is in excess of all separately billable procedures. Michael Mayes MD Past Med/Surg History Medical History (Updated 06/12/20 @ 05:12 by Michael Mayes MD) Abnormal finding on mammography Allergic rhinitis due to animal dander Allergic rhinitis due to pollen Chronic hoarseness Dyslipidemia Eustachian tube dysfunction Extrinsic asthma Hypertension Laryngopharyngeal reflux disease Lateral femoral cutaneous neuropathy Lump or mass in breast Mild persistent asthma Obstructive sleep apnea Postoperative pain Sinus tachycardia Tobacco abuse Surgical History H/O total hysterectomy History of colposcopy History of cryosurgery Cervical History of dental surgery History of tooth extraction Status post hysteroscopic ablation of endometrium Family History Father Hypertension Cancer Cardiac disorder Heart disease Mother Asthma Allergies Sinusitis Hypertension Grandmother Uterine cancer Cervical cancer Uncle Asthma FHx: deafness or hearing loss Allergies Sinusitis Hypertension Cancer Cardiac disorder Grandfather Cardiac disorder Grandmother Cancer Social History Smoking Status: Current every day smoker Tobacco Type: Cigarettes Preferred Language: [place] Feels Safe at Home: Yes Allergies Allergies Allergy/AdvReac Type Severity Reaction Status Date / Time diphenhydramine Allergy Intermediate SWELLING Verified 06/12/20 04:50 Penicillins Allergy Intermediate SWELLING Verified 06/12/20 04:50 aspirin AdvReac Intermediate NOSEBLEEDS Verified 06/12/20 04:50 METALS Allergy Intermediate WELTS, Uncoded 06/12/20 04:50 ITCHING ON SKIN Home Meds Home Medications Medication Instructions Recorded Confirmed adapalene 0.1 % topical gel 1 appln TOPICAL DAILY gm 06/01/19 06/12/20 albuterol sulfate 90 mcg/actuation 2 puffs INHALATION Q4H PRN #1 gm 06/01/19 06/12/20 aerosol inhaler azelastine 137 mcg (0.1 %) nasal 2 sprays INTRANASAL BID ml 06/01/19 06/12/20 spray aerosol cyanocobalamin (vitamin B-12) 1,000 mcg PO DAILY 06/01/19 06/12/20 1,000 mcg capsule mometasone 50 mcg/actuation nasal 2 sprays INTRANASAL DAILY gm 06/01/19 06/12/20 spray coQ10 (ubiquinol) 100 mg capsule 100 mg PO DAILY cap 11/10/19 06/12/20 diltiazem HCl 240 mg 240 mg PO BID #60 cap 11/10/19 06/12/20 capsule,extended release 24 hr fexofenadine 60 mg-pseudoephedrine 1 tab PO BID tab 11/10/19 06/12/20 ER 120 mg tablet,ext.release,12 hr guaifenesin 600 mg tablet, 600 mg PO BID PRN 11/10/19 06/12/20 extended release 12 hr hydrochlorothiazide 25 mg tablet 25 mg PO DAILY #90 tab 11/10/19 06/12/20 levothyroxine 75 mcg tablet See Rx Instructions .ROUTE 11/10/19 06/12/20 .COMPLEX tab montelukast 10 mg tablet 10 mg PO DAILY tab 11/10/19 06/12/20 potassium chloride 20 mEq 20 meq PO DAILY tab 11/10/19 06/12/20 tablet,extended release pravastatin 40 mg tablet 40 mg PO DAILY tab 11/10/19 06/12/20 promethazine 25 mg tablet 25 mg PO DIRECTED PRN tab 11/10/19 06/12/20 sumatriptan succinate 100 mg tablet 100 mg PO DIRECTED PRN tab 11/10/19 06/12/20 [id number] 1 cap PO DAILY 06/12/20 06/12/20 [[employer] ([place] 3 and 6)] metformin 750 mg PO BID 06/12/20 06/12/20 naproxen sodium 550 mg PO BID 06/12/20 06/12/20 Previous Rx's Medication Instructions Recorded omeprazole 20 mg capsule,delayed 20 mg PO DAILY #60 cap 07/15/19 release budesonide-formoterol HFA 80 2 puffs INH BID #3 inhaler 09/04/19 mcg-4.5 mcg/actuation aerosol inhaler famotidine 20 mg tablet 20 mg PO BID 30 Days #60 tab 09/28/19 nicotine 14 mg/24 hr daily 1 patch TD DAILY #28 ea 04/11/20 transdermal patch Results & Data (ED) Vital Signs Vital Signs - 24 hr 06/12/20 04:03 06/12/20 04:29 06/12/20 04:44 Temperature 36.3 C L Temperature Source Oral Pulse Rate 76 Pulse Rate [Right Finger] 89 73 Pulse Rate from SpO2 Sensor Pulse Rhythm [Right Finger] Regular Regular Pulse Strength [Right Finger] Normal Normal Respiratory Rate 18 20 18 Respiratory Effort / Characteristics Non-Labored Spontaneous Non-Labored Spontaneous Non-Labored Spontaneous Respiratory Depth Normal Normal Normal Respiratory Pattern Regular Regular Blood Pressure 119/78 Blood Pressure [Right Arm] 127/77 108/67 Blood Pressure Mean 91 Blood Pressure Mean [Right Arm] 93 80 Blood Pressure Position Sitting Pulse Oximetry 97 95 95 Oxygen Delivery Method Room Air Room Air Room Air Sepsis Recent Fever Within 48 Hours No Sepsis New/Unexplained Change in Mental Status No Sepsis Action Taken by Nursing No Action Required 06/12/20 05:00 06/12/20 05:15 06/12/20 05:30 Temperature Temperature Source Pulse Rate 74 98 H 87 Pulse Rate [Right Finger] Pulse Rate from SpO2 Sensor 74 92 H Pulse Rhythm [Right Finger] Pulse Strength [Right Finger] Respiratory Rate 14 12 13 Respiratory Effort / Characteristics Respiratory Depth Respiratory Pattern Blood Pressure 106/62 107/69 106/73 Blood Pressure [Right Arm] Blood Pressure Mean 72 78 79 Blood Pressure Mean [Right Arm] Blood Pressure Position Pulse Oximetry 93 96 97 Oxygen Delivery Method Room Air Room Air Room Air Sepsis Recent Fever Within 48 Hours Sepsis New/Unexplained Change in Mental Status Sepsis Action Taken by Nursing Laboratory Data Result diagrams: 06/12/20 04:20 06/12/20 04:20 Lab Results 06/12/20 06/12/20 06/12/20 Range/Units 04:20 04:20 04:20 WBC 17.87 H (4.8-10.8) K/uL RBC 5.09 (4.2-5.4) M/uL Hgb 15.8 (12.0-16.0) g/dL Hct 46.3 (37-47) % MCV 91.0 (80-100) fL MCH 31.0 (25-34) pg MCHC 34.1 (32-36) g/dL RDW Std Deviation 45.5 (36.4-46.3) fL RDW Coeff of Advid 13.6 (11.5-14.5) % Plt Count 401 H (130-400) K/uL MPV 10.1 (7.4-10.4) fL Immature Gran % (Auto) 0.6 % Neut % (Auto) 59.4 % Lymph % (Auto) 28.9 % [place] % (Auto) 9.5 % Eos % (Auto) 1.5 % Baso % (Auto) 0.1 % Neut # (Auto) 10.63 H (1.4-6.5) K/uL Lymph # (Auto) 5.16 H (1.2-3.4) K/uL [place] # (Auto) 1.69 H (0.11-0.59) K/uL Eos # (Auto) 0.26 (0-0.5) K/uL Baso # (Auto) 0.02 (0-0.2) K/uL Immature Gran # (Auto) 0.11 H (0.00-0.02) K/uL RBC Morphology Unremarkable PT 9.6 (9.0-12.0) Seconds INR 0.9 (0.9-1.1) APTT 26.2 (21.0-31.0) Seconds PTT Ratio 0.9 Activ Coag Time Kaolin (94-140) SECONDS Sodium 142 (136-145) mmol/L Potassium 3.8 (3.5-5.1) mmol/L Chloride 110 H (98-107) mmol/L Carbon Dioxide 25 (21-32) mmol/L Anion Gap 7.0 (3-11) BUN 22 H (7-18) mg/dl Creatinine 0.81 (0.6-1.2) mg/dl Est Cr Clr Drug Dosing 78.7 ml/min Est GFR ( Amer) 98.2 Est GFR (Non-Af Amer) 84.7 BUN/Creatinine Ratio 27.7 H (10-20) Glucose 125 H (70-99) mg/dl Calcium 9.4 (8.5-10.1) mg/dl Magnesium 1.9 (1.8-2.4) mg/dl Troponin I 0.118 H* (0-0.045) ng/ml 06/12/20 Range/Units 06:12 WBC (4.8-10.8) K/uL RBC (4.2-5.4) M/uL Hgb (12.0-16.0) g/dL Hct (37-47) % MCV (80-100) fL MCH (25-34) pg MCHC (32-36) g/dL RDW Std Deviation (36.4-46.3) fL RDW Coeff of David (11.5-14.5) % Plt Count (130-400) K/uL MPV (7.4-10.4) fL Immature Gran % (Auto) % Neut % (Auto) % Lymph % (Auto) % [place] % (Auto) % Eos % (Auto) % Baso % (Auto) % Neut # (Auto) (1.4-6.5) K/uL Lymph # (Auto) (1.2-3.4) K/uL [place] # (Auto) (0.11-0.59) K/uL Eos # (Auto) (0-0.5) K/uL Baso # (Auto) (0-0.2) K/uL Immature Gran # (Auto) (0.00-0.02) K/uL RBC Morphology PT (9.0-12.0) Seconds INR (0.9-1.1) APTT (21.0-31.0) Seconds PTT Ratio Activ Coag Time Kaolin 224 H (94-140) SECONDS Sodium (136-145) mmol/L Potassium (3.5-5.1) mmol/L Chloride (98-107) mmol/L Carbon Dioxide (21-32) mmol/L Anion Gap (3-11) BUN (7-18) mg/dl Creatinine (0.6-1.2) mg/dl Est Cr Clr Drug Dosing ml/min Est GFR ( Amer) Est GFR (Non-Af Amer) BUN/Creatinine Ratio (10-20) Glucose (70-99) mg/dl Calcium (8.5-10.1) mg/dl Magnesium (1.8-2.4) mg/dl Troponin I (0-0.045) ng/ml Administered Medications Discontinued Medications Aspirin (Aspirin 81 Mg Chew) 324 mg PO NOW STA Stop: 06/12/20 04:16 Last Admin: 06/12/20 04:23 Dose: 324 mg Documented by: [id number] Clopidogrel Bisulfate (Clopidogrel Bisulfate 300 Mg Tab) Confirm Administered Dose 600 mg .ROUTE .[facility]-MED ONE Stop: 06/12/20 06:40 Last Admin: 06/12/20 06:43 Dose: 600 mg Documented by: [id number] Eptifibatide (Eptifibatide 2 Mg/Ml 10 Ml Vial (Dial Lathe Operator Use Only)) Confirm Administered Dose 20 mg IV .STK-MED ONE Stop: 06/12/20 06:10 Last Admin: 06/12/20 06:35 Dose: 6.8 ml Documented by: [id number] Eptifibatide (Eptifibatide 0.75 Mg/Ml 75mg Vial (Dial Lathe Operator Use Only)) Confirm Administered Dose 75 mg .ROUTE .STK-MED ONE Stop: 06/12/20 06:10 Last Admin: 06/12/20 06:36 Dose: 75 mg Documented by: [id number] Eptifibatide (Eptifibatide 2 Mg/Ml 10 Ml Vial (Dial Lathe Operator Use Only)) Confirm Administered Dose 20 mg IV .STK-MED ONE Stop: 06/12/20 06:12 Last Admin: 06/12/20 06:35 Dose: 6.8 ml Documented by: [id number] Fentanyl Citrate (Fentanyl Citrate 100 Mcg/2 Ml Vial) 50 mcg IV NOW STA Stop: 06/12/20 05:00 Last Admin: 06/12/20 05:02 Dose: 50 mcg Documented by: [id number] Fentanyl Citrate (Fentanyl Citrate 100 Mcg/2 Ml Vial) Confirm Administered Dose 100 mcg .ROUTE .STK-MED ONE Stop: 06/12/20 05:01 Last Admin: 06/12/20 05:04 Dose: Not Given Documented by: [id number] Fentanyl Citrate (Fentanyl Citrate 100 Mcg/2 Ml Vial) Confirm Administered Dose 100 mcg .ROUTE .STK-MED ONE Stop: 06/12/20 05:28 Last Admin: 06/12/20 06:43 Dose: 50 mcg Documented by: [id number] Heparin Sodium (Porcine) (Heparin (Porcine) 1000 Unit/Ml 10 Ml (Dial Lathe Operator Use Only)) Confirm Administered Dose 10,000 units .ROUTE .STK-MED ONE Stop: 06/12/20 05:28 Last Admin: 06/12/20 06:44 Dose: 6,000 units Documented by: [id number] Heparin Sodium/Sodium Chloride (Heparin In Nss Infusion 1000 Unit/500 Ml (2 U/Ml ) Bag) Confirm Administered Dose 3,000 units IV .STK-MED ONE Stop: 06/12/20 05:28 Last Admin: 06/12/20 06:28 Dose: 3,000 units Documented by: [id number] Midazolam HCl (Midazolam Hcl 1 Mg/Ml 2ml Vial) Confirm Administered Dose 2 mg .ROUTE .STK-MED ONE Stop: 06/12/20 05:28 Last Admin: 06/12/20 06:29 Dose: 2 mg Documented by: [id number] Midazolam HCl (Midazolam Hcl 1 Mg/Ml 2ml Vial) Confirm Administered Dose 2 mg .ROUTE .STK-MED ONE Stop: 06/12/20 05:59 Last Admin: 06/12/20 06:44 Dose: Not Given Documented by: [id number] Nicardipine HCl (Nicardipine Hcl Inj 2.5 Mg/Ml 10 Ml Amp) Confirm Administered Dose 25 mg .ROUTE .STK-MED ONE Stop: 06/12/20 05:28 Last Admin: 06/12/20 06:28 Dose: 25 mg Documented by: [id number] Nitroglycerin (Nitroglycerin Sl 0.4 Mg/Tab Tab) 0.4 mg SL NOW STA Stop: 06/12/20 04:16 Last Admin: 06/12/20 04:23 Dose: 0.4 mg Documented by: [id number] Nitroglycerin (Nitroglycerin 2% Ointment 30gm Tube) 1 inch EXT NOW ONE Stop: 06/12/20 04:21 Last Admin: 06/12/20 04:24 Dose: 1 inch Documented by: [id number] Nitroglycerin/Dextrose (Nitroglycerin/D5w 100mcg/Ml 20ml Syr) Confirm Administered Dose 2,000 mcg .ROUTE .STK-MED ONE Stop: 06/12/20 05:28 Last Admin: 06/12/20 06:28 Dose: 2,000 mcg Documented by: [id number] Discharge Plan Visit Data Chief Complaint: Cardiac Assessment Stated Complaint: CHEST PAIN,HEADACHES,HAND NUMBNESS ED Provider: Michael Mayes Discharge Problem: Acute non-ST elevation myocardial infarction (NSTEMI) Patient Disposition: Still a Patient Discharge Instructions Interventions: ED Discharge Assessment Last Done: 06/12/20 05:35
[2020-06-12] MEDS ORDERED: NITROGLYCERIN 2% OINTMENT 30GM TUBE EXT ONE (04:20)
[2020-06-12 04:40] LABS: Hematocrit (blood only) 46.3 % (37-47); Hemoglobin 15.8 g/dL (12.0-16.0); Mean Corpuscular Hgb Conc 34.1 g/dL (32-36); Mean Platelet Volume 10.1 fL (7.4-10.4); Platelet Count 401 K/uL (130-400); RDW Coefficient of Variation 13.6 % (11.5-14.5); RDW Standard Deviation 45.5 fL (36.4-46.3); Red Blood Count 5.09 M/uL (4.2-5.4); White Blood Count 17.87 K/uL (4.8-10.8)
[2020-06-12 04:50] LABS: BUN Creatinine Ratio 27.7 (10-20); Calcium 9.4 mg/dl (8.5-10.1); Creatinine Clr Calc Pharmacy 78.7 ml/min; Est GFR (African American) 98.2; Est GFR (Non-African American) 84.7; Magnesium 1.9 mg/dl (1.8-2.4); Potassium 3.8 mmol/L (3.5-5.1)
[2020-06-12 04:56] LABS: INR 0.9 (0.9-1.1); Partial Thromboplastin Ratio 0.9; Partial Thromboplastin Time 26.2 Seconds (21.0-31.0); Prothrombin Time 9.6 Seconds (9.0-12.0)
[2020-06-12 04:58] LABS: Troponin I 0.118 ng/ml (0-0.045)
[2020-06-12] MEDS ORDERED: fentaNYL citrate 100 MCG/2 ML VIAL IV STA (04:59)
[2020-06-12] MEDS ORDERED: fentaNYL citrate 100 MCG/2 ML VIAL ONE ×2 (05:00→05:27)
[2020-06-12 05:05] LABS: Basophils # (auto) 0.02 K/uL (0-0.2); Basophils % (auto) 0.1 %; Eosinophils # (auto) 0.26 K/uL (0-0.5); Eosinophils % (auto) 1.5 %; Immature Granulocytes # (auto) 0.11 K/uL (0.00-0.02); Immature Granulocytes % (auto) 0.6 %; Lymphocytes # (auto) 5.16 K/uL (1.2-3.4); Lymphocytes % (auto) 28.9 %; Monocytes # (auto) 1.69 K/uL (0.11-0.59); Monocytes % (auto) 9.5 %; Neutrophils # (auto) 10.63 K/uL (1.4-6.5); Neutrophils % (auto) 59.4 %; RBC Morphology Unremarkable
[2020-06-12] MEDS ORDERED: NiCARDipine HCL INJ 2.5 MG/ML 10 ML AMP ONE (05:27)
[2020-06-12] MEDS ORDERED: HEPARIN (PORCINE) 1000 UNIT/ML 10 ML (CATH LAB USE ONLY) ONE (05:27)
[2020-06-12] MEDS ORDERED: NITROGLYCERIN/D5W 100MCG/ML 20ML SYR ONE (05:27)
[2020-06-12] MEDS ORDERED: MIDAZOLAM HCL 1 MG/ML 2ML VIAL ONE ×2 (05:27→05:58)
[2020-06-12] MEDS ORDERED: EPTIFIBATIDE 0.75 MG/ML 75MG VIAL (CATH LAB USE ONLY) ONE (06:09)
[2020-06-12] MEDS ORDERED: EPTIFIBATIDE 2 MG/ML 10 ML VIAL (CATH LAB USE ONLY) IV ONE ×2 (06:09→06:11)
[2020-06-12] MEDS ORDERED: CLOPIDOGREL BISULFATE 300 MG TAB ONE (06:39)
[2020-06-12] MEDS: EPTIFIBATIDE 75 MG/100 ML VIAL IV SCH ×2 (07:00→13:54)
[2020-06-12] MEDS ORDERED: ICU PROTOCOL FOR HYPERGLYCEMIA PRN (07:20)
--- NOTE | 2020-06-12 07:21 | Cardiac Catheterization ---
Cardiac Cath Procedure Full Procedure Date June 12, 2020 Pre-Procedure Diagnosis Pre-Procedure Diagnosis: Non STEMI AUC Score AUC Score: 08 Post-Procedure Diagnosis Post-Procedure Diagnosis: Severe CAD, Successful PCI (RCA) and Normal LV Systolic Function Procedure(s) Performed Procedure(s) Performed: Coronary Angiography, Left Heart Cath, LV Angiography, Drug Eluting Stent and Procedure (PCI for AMI) Fax Machine Repairer Jose E Campbell MD Estimated Blood Loss Estimated Blood Loss: 25ml Medication(s) Medication(s): Aspirin, Clopidogrel, Fentanyl, Heparin, Integrilin, Lidocaine 1%, Nicardipine, Nitroglycerin and Versed Summary of Findings LMT: large caliber, long vessel. No significant disease LAD: large and transapical. Large D1 and medium D2. Scattered mild plaques. LCx: medium to large and nondominant. OM1 large and branches. AV groove LCx gives atrial branch then tapers and terminates. No more than mild irregularities in LCx and branches. RCA: very large and dominant. Proximal mild diffuse disease. Mid with diffuse mild to moderate disease. Distal vessel with tandem 99% and 80% lesions before bifurcation. VANI I flow after lesions. Large multibranching PLB and large PDA with proximal up to 70% stenosis. Small distal RCA branch fills via L-R collaterals. PCI: 2.5 x 15 mm DOUGLAS to proximal PDA and overlapped 2.75x23 and 3.0x12 DOUGLAS in distal RCA. 0% residual stenosis VANI III flow post PCI No evidence of dissection or perforation. LVEF: 55% Inferior hypokinesis Hemodynamics Rest Ao:: 104/66 mm Hg, mean 84 mm Hg Final Ao: 111/66 mm Hg, mean 86 mm Hg LV: 98/1 mm Hg, LVEDP 86 mm Hg Recommendations Recommendations: PCI without planned CABG and Management Recommendatons (DAPT with ASA and Plavix for 1 year. GDMT with beta bobby, high intensity statin, and ACEi/ARB) Specimens Specimens: None Radiation Exposure (mGy) 1864 Contrast (mls) 120 Procedural Complication(s) None Disposition ICU I attest to the content of the Intraoperative Record and any orders documented therein. Any exceptions are noted below. ACC Data: Study Specialist Cardiac Status Clinical evaluation leading to the procedure CAD Presenation: Non STEMI Anginal Classification: CCS IV Heart Failure: No Cardiogenic Shock within 24 Hours: No Cardiac Arrest within 24 Hours: No Imaging Studies Past 6 Months: No Stress Studies Past 6 Months: No STEMI OR Non-STEMI Symptom Onset Date: 06/11/20 Symptom Onset Time: 13:00 Thrombolytics: No Coronary Anatomy Dominant: Right Left Main (% Stenosis): Normal LAD (% Stenosis): Normal D1 (% Stenosis): Normal D2 (% Stenosis): Normal Circumflex (% Stenosis): Normal OM1 (% Stenosis): Normal RCA (% Stenosis): Proximal (mild), Mid (mild to moderate) and Distal (Tandem 99% hazy and 80% before bifurcation) R PDA (% Stenosis): Proximal (70%) Left Ventricular Angiography EF (%): 55 Wall Motion: Inferior (Hypokinetic) Diagnostic Physicians Name: Jose E Campbell MD Closure Device Percutaneous Entry Location: Radial Closure Device: Radial Band Recommendations: PCI without planned CABG and Management Recommendatons (DAPT with ASA and Plavix for 1 year. GDMT with beta bobby, high intensity statin, and ACEi/ARB) PCI Indication: PCI for high risk Non-ADDI First Noted: First EKG (dynamic ST changes on serial EKGs) Lesion Segment Name: distal RCA Culprit Artery: Yes Stenosis Prior to Rx (%): 99 Chronic Total Occlusion: No Pre-Procedure VANI Flow: 1 Previously Treated Lesion: No Lesion Complexity: Non-High/Non-C Lesion Length (mm): 20 Thrombus Present: Yes Bifurcation Lesion: No Guidewire Across Lesion: Yes Lesion #2 Segment Name: proximal rPDA Culprit Artery: No Stenosis Prior to Rx (%): 70 Chronic Total Occlusion: No IVUS: No FFR: No Pre-Procedure VANI Flow: 1 Previously Treated Lesion: No Lesion Complexity: Non-High/Non-C Lesion Length (mm): 10 Thrombus Present: No Bifurcation Lesion: No Guidewire Across Lesion: Yes Intraprocedure Events Significant Disection: No Perforation: No
[2020-06-12] MEDS ORDERED: GLUCOSE 40% GEL 15 GM TUBE PO PRN (07:32)
[2020-06-12] MEDS ORDERED: GLUCAGON FOR INJ 1 MG VIAL SQ PRN (07:32)
[2020-06-12] MEDS ORDERED: GLUCOSE 10 TABS/TUBE PO PRN (07:32)
[2020-06-12] MEDS ORDERED: CARBOHYDRATES FOR HYPOGLYCEMIA PO PRN (07:32)
[2020-06-12] MEDS ORDERED: DEXTROSE 50% 50 ML SYRINGE IV PRN (07:32)
[2020-06-12] MEDS ORDERED: MoRPHine SULFATE 2 MG/ML CARP IV PRN (07:34)
[2020-06-12] MEDS ORDERED: ALUMINUM/MAGNESIUM SUSP 30 ML UDC PO PRN (07:34)
[2020-06-12] MEDS ORDERED: ACETAMINOPHEN 325 MG TAB PO PRN (07:34)
[2020-06-12] MEDS ORDERED: POLYETHYLENE (MIRALAX) 17 GM PACK PO PRN (07:34)
[2020-06-12] MEDS ORDERED: NITROGLYCERIN SL 0.4 MG/TAB TAB SL PRN (07:34)
[2020-06-12] MEDS ORDERED: ONDANSETRON INJ 2 MG/ML 2 ML VIAL IV PRN (07:34)
--- NOTE | 2020-06-12 07:34 | Critical Care Consultation ---
Date of Consultation June 12, 2020 Assessment & Plan (1) ACS (acute coronary syndrome): Impression: 49-year-old female presents to the ICU post heart cath with successful PCI x3 with DOUGLAS to RCA Neuro - [facility] ICU: Negative Cardiac - STEMImild lateral ST elevations on initial EKG now resolved post cath EKG -Patient received successful PCI x3 with DOUGLAS to the RCA -Currently on Integrilin drip -Continue ASA, BB, statin, Plavix -Trend troponins repeat -Follow-up lipid panel -Follow-up echo -Maximize electrolytes -Continuous monitor on telemetry Respiratory - History of MK, asthma, tobacco abuse -We will continue home nebs -Currently maintaining sats on room air -Continuous monitor on pulse ox GI - Heart healthy diet Continue famotidine RENAL/LYTES - Creatinine within normal limits Monitor electrolytes with routine BMPs and replete as indicated - Strict I's and O's ENDO - DM type IIholding home oral meds and exchanged for sliding scale -Follow-up hemoglobin A1c -ICU hyperglycemic protocol HEME - H&H stable, monitor routine CBCs ID - No indication for infectious process at this time LINES/IV ACCESS - Peripheral IVs DVT PROPHYLAXIS - SCDs Thank you for allowing us to participate in the care of this patient. Please refer to my attending physician's documentation for any further recommendations. (2) Tobacco use: (3) Mild persistent asthma: (4) Dyslipidemia: (5) Hypertension: (6) Obstructive sleep apnea: (7) STEMI (ST elevation myocardial infarction): Supervising Physician Co-Signing Physician Notes Patient seen and examined with the nurse practitioner. I agree with his assessment and plan aside for any additions/exceptions noted: Patient status post STEMI with PCI. She is a long-term smoker. Encourage smoking cessation. Continue antiplatelet therapy and beta blockade per cardiology recommendation. Continue statin. Likely transfer to floor tomorrow. History of Present Illness Attending Physician: Jose E Campbell MD History of Present Illness Patient is a 49-year-old female with history type 2 diabetes, HTN, dyslipidemia, asthma presented to the emergency department earlier this morning for evaluation of chest pain that initially started around 1 PM yesterday afternoon with crushing left chest pain and radiation to the left shoulder back and neck. Pain eventually eased up but she was awoken early this morning with similar left chest pain and presented to the emergency department. Troponin was mildly elevated and she showed patterns of mild ST elevation in the lateral leads. Heart alert was initiated and patient went to [facility] where she received successful PCI x3 to the RCA. She was then transferred post-cath to the ICU for further management. Patient now presents to the ICU without complaints of chest pain and appears comfortable. Is on Integrilin drip. She currently denies headache, dizziness, syncope, recent illness, chest pain, palpitations, shortness of breath, abdominal pain. Currently hemodynamically stable and maintaining sats on room air. We will continue to monitor in ICU for the time being following acute FL with PCI. Allergies Allergy/AdvReac Type Severity Reaction Status Date / Time diphenhydramine Allergy Intermediate SWELLING Verified 06/12/20 04:50 Penicillins Allergy Intermediate SWELLING Verified 06/12/20 04:50 aspirin AdvReac Intermediate NOSEBLEEDS Verified 06/12/20 04:50 METALS Allergy Intermediate WELTS, Uncoded 06/12/20 04:50 ITCHING ON SKIN Home Medications Home Medications Medication Instructions Recorded Confirmed Type adapalene 0.1 % topical gel 1 appln TOPICAL DAILY gm 06/01/19 06/12/20 History albuterol sulfate 90 mcg/actuation 2 puffs INHALATION Q4H PRN #1 gm 06/01/19 06/12/20 History aerosol inhaler azelastine 137 mcg (0.1 %) nasal 2 sprays INTRANASAL BID ml 06/01/19 06/12/20 History spray aerosol cyanocobalamin (vitamin B-12) 1,000 mcg PO DAILY 06/01/19 06/12/20 History 1,000 mcg capsule mometasone 50 mcg/actuation nasal 2 sprays INTRANASAL DAILY gm 06/01/19 06/12/20 History spray omeprazole 20 mg capsule,delayed 20 mg PO DAILY #60 cap 07/15/19 06/12/20 Rx release budesonide-formoterol HFA 80 2 puffs INH BID #3 inhaler 09/04/19 06/12/20 Rx mcg-4.5 mcg/actuation aerosol inhaler famotidine 20 mg tablet 20 mg PO BID 30 Days #60 tab 09/28/19 06/12/20 Rx coQ10 (ubiquinol) 100 mg capsule 100 mg PO DAILY cap 11/10/19 06/12/20 History diltiazem HCl 240 mg 240 mg PO BID #60 cap 11/10/19 06/12/20 History capsule,extended release 24 hr fexofenadine 60 mg-pseudoephedrine 1 tab PO BID tab 11/10/19 06/12/20 History ER 120 mg tablet,ext.release,12 hr guaifenesin 600 mg tablet, 600 mg PO BID PRN 11/10/19 06/12/20 History extended release 12 hr hydrochlorothiazide 25 mg tablet 25 mg PO DAILY #90 tab 11/10/19 06/12/20 History levothyroxine 75 mcg tablet See Rx Instructions .ROUTE 11/10/19 06/12/20 History .COMPLEX tab montelukast 10 mg tablet 10 mg PO DAILY tab 11/10/19 06/12/20 History potassium chloride 20 mEq 20 meq PO DAILY tab 11/10/19 06/12/20 History tablet,extended release pravastatin 40 mg tablet 40 mg PO DAILY tab 11/10/19 06/12/20 History promethazine 25 mg tablet 25 mg PO DIRECTED PRN tab 11/10/19 06/12/20 History sumatriptan succinate 100 mg tablet 100 mg PO DIRECTED PRN tab 11/10/19 06/12/20 History nicotine 14 mg/24 hr daily 1 patch TD DAILY #28 ea 04/11/20 06/12/20 Rx transdermal patch [id number] 1 cap PO DAILY 06/12/20 06/12/20 History [Krill Oil ([place] 3 and 6)] metformin 750 mg PO BID 06/12/20 06/12/20 History naproxen sodium 550 mg PO BID 06/12/20 06/12/20 History Patient History Medical History Abnormal finding on mammography Allergic rhinitis due to animal dander Allergic rhinitis due to pollen Chronic hoarseness Dyslipidemia Eustachian tube dysfunction Extrinsic asthma Hypertension Laryngopharyngeal reflux disease Lateral femoral cutaneous neuropathy Lump or mass in breast Mild persistent asthma Obstructive sleep apnea Postoperative pain Sinus tachycardia Tobacco abuse Surgical History H/O total hysterectomy History of colposcopy History of cryosurgery Cervical History of dental surgery History of tooth extraction Status post hysteroscopic ablation of endometrium Family History Father Hypertension Cancer Cardiac disorder Heart disease Mother Asthma Allergies Sinusitis Hypertension Grandmother Uterine cancer Cervical cancer Uncle Asthma FHx: deafness or hearing loss Allergies Sinusitis Hypertension Cancer Cardiac disorder Grandfather Cardiac disorder Grandmother Cancer Social History Smoking Status: Current every day smoker Tobacco Type: Cigarettes Cigarettes Per Day: 20; Second Hand Exposure: No; Do You Dip or Chew Tobacco: No; Tobacco Cessation Education Requested by Patient: No Hx Alcohol Use: Yes Alcohol type: beer Hx Substance Use: No Preferred Language: Swedish Communication Ability: Effective 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 Beliefs That Will Affect Care: None Current Living Situation: Spouse Other Information That Helps Us Care for You: No Feels Safe at Home: Yes Safety Concerns: Feels Safe At This Time Assistive Devices: Glasses Assistive Devices Comment: Wears glasses - not here with pt Review of Systems Review of Systems: All systems reviewed & are unremarkable except as noted in HPI & below Physical Exam Constitutional: WD/WN, vitals as above Eyes: PERRL, conjunctivae normal, anicteric sclerae ENMT: external ear and nose normal, oropharynx normal Neck: trachea midline, no thyromegaly Respiratory: normal respiratory effort, lungs clear to auscultation Cardiovascular: RRR, no murmur, no edema Heart Sounds: normal S1 and normal S2 Vessels: no JVD Extremities: normal capillary refill Gastrointestinal (Abdomen): normal bowel sounds, soft, nontender, no hepatosplenomegaly Musculoskeletal: no cyanosis or clubbing, extremities motor strength 5/5 Skin: no rashes, warm and dry Neurologic: PERRL, EOMI, accommodation nl, no face palsy, no dysarthria Psychiatric: A+Ox3, euthymic affect Results & Data Results & Data ([facility]) Vital Signs (Past 12 Hours) Vital Signs Temp Pulse Pulse Resp BP BP Pulse Ox 06/12/20 05:30 87 13 106/73 97 06/12/20 05:15 98 H 12 107/69 96 06/12/20 05:00 74 14 106/62 93 06/12/20 04:44 73 18 108/67 95 06/12/20 04:29 89 20 127/77 95 06/12/20 04:03 36.3 C L 76 18 119/78 97 Coding Level of Care Code 20842 Office/OBS Consult Lvl 5 Diagnoses ACS (acute coronary syndrome) I24.9 Tobacco use Z72.0 Mild persistent asthma J45.30 Dyslipidemia E78.5 Hypertension I10 Obstructive sleep apnea G47.33 STEMI (ST elevation myocardial infarction) I21.3
[2020-06-12] MEDS ORDERED: LEVOTHYROXINE SODIUM 75 MCG TABLET PO SCH (07:45)
--- NOTE | 2020-06-12 08:06 | XRay Report ---
XR chest 1V portable HISTORY: 49 years-old Female Left chest pain acute chest pain with radiation into the left neck and left upper extremity COMPARISON: None TECHNIQUE: Portable AP view of the chest FINDINGS: Cardiomediastinal and hilar silhouettes are within normal limits. No pneumothorax, pleural effusion, airspace consolidation or overt pulmonary edema. Bones of the chest appear grossly intact. IMPRESSION: No acute process. ACT 112: Negative or not required by law. The above report was generated using voice recognition software. It may contain grammatical, syntax o r spelling errors. Electronically signed by: Kieran Rollins M.D. 06/12/2020 8:05 AM
[2020-06-12] MEDS: LEVOTHYROXINE SODIUM 75 MCG TABLET PO SCH (08:12)
[2020-06-12] MEDS: FLUTICASONE/VILANTEROL 100/25MCG 14 PUFFS/INHALER INH SCH (08:15)
[2020-06-12] MEDS: ASPIRIN 81 MG ECTAB PO SCH (08:16)
[2020-06-12] MEDS: FLUTICASONE PROPIONATE NA SPR 16 GM BTL SCH (08:17)
[2020-06-12] MEDS: ATORVASTATIN 40 MG TAB PO SCH (08:19)
[2020-06-12] MEDS: FAMOTIDINE 20 MG TAB PO SCH ×2 (08:20→20:42)
[2020-06-12] MEDS: CYANOCOBALAMIN 500 MCG TABLET (VITAMIN B-12) PO SCH (08:23)
[2020-06-12] MEDS: MONTELUKAST SODIUM 10 MG TABLET PO SCH (08:23)
[2020-06-12] MEDS ORDERED: Nursing to Pharmacy Communication SCH (08:45)
--- NOTE | 2020-06-12 08:54 | Electrocardiogram Report ---
Test Reason : Blood Pressure : / mmHG Vent. Rate : 070 BPM Atrial Rate : 070 BPM P-R Int : 130 ms QRS Dur : 078 ms QT Int : 402 ms P-R-T Axes : 043 011 110 degrees QTc Int : 434 ms Normal sinus rhythm Abnormal ECG When compared with ECG of 29-AUG-2017 14:05, ST now depressed in Anterior leads T wave inversion now evident in Lateral leads QT has shortened Confirmed by Kristofer Lucas ([id number]) on 06/12/2020 8:53:39 AM Referred By: REFERRED SELF Confirmed By:Kristofer Lucas
--- NOTE | 2020-06-12 08:55 | Electrocardiogram Report ---
Test Reason : Blood Pressure : / mmHG Vent. Rate : 071 BPM Atrial Rate : 071 BPM P-R Int : 134 ms QRS Dur : 074 ms QT Int : 404 ms P-R-T Axes : 053 010 104 degrees QTc Int : 439 ms Normal sinus rhythm ACUTE CT / non-STEMI Acute inferior infarction Abnormal ECG When compared with ECG of 12-JUN-2020 04:13, (unconfirmed) ST elevation now present in Inferior leads Confirmed by Kristofer Lucas ([id number]) on 06/12/2020 8:55:14 AM Referred By: REFERRED SELF Confirmed By:rKistofer Lucas
--- NOTE | 2020-06-12 08:56 | Electrocardiogram Report ---
Test Reason : Blood Pressure : / mmHG Vent. Rate : 068 BPM Atrial Rate : 068 BPM P-R Int : 146 ms QRS Dur : 076 ms QT Int : 422 ms P-R-T Axes : 058 003 067 degrees QTc Int : 448 ms Normal sinus rhythm Low voltage QRS Borderline ECG When compared with ECG of 12-JUN-2020 04:38, (unconfirmed) T wave inversion no longer evident in Lateral leads Confirmed by Kristofer Lucas ([id number]) on 06/12/2020 8:55:31 AM Referred By: REFERRED SELF Confirmed By:Kristofer Lucas
[2020-06-12] MEDS ORDERED: METOPROLOL TARTRATE 25 MG TAB PO SCH (09:00)
[2020-06-12] MEDS ORDERED: INSULIN GLARGINE SOLOSTAR 100 UNITS/ML 3 ML PEN SC SCH ×2 (09:00)
[2020-06-12] MEDS ORDERED: NICOTINE TD SCH (09:00)
[2020-06-12] MEDS ORDERED: CLOPIDOGREL BISULFATE 75 MG TAB PO SCH (09:00)
--- NOTE | 2020-06-12 09:37 | Cardiology Consultation ---
Date of Consultation June 12, 2020 Assessment & Plan (1) STEMI (ST elevation myocardial infarction): She is feeling well post intervention, no residual chest discomfort. We will continue with post intervention care and respect her management. (2) CAD (coronary artery disease): She now has documentation of coronary disease and we will need to reinforce risk factor management which in her case includes stopping smoking, weight loss and exercise, continuing statin therapy as well as antiplatelet therapy post intervention. (3) Hypertension: She carries a diagnosis of hypertension but for the most part her blood pressure has been well controlled based on prior vital signs (4) Tobacco use: She does continue to smoke currently, she tells me she quit for about 10 years in the past but then took it up again. She is willing to stop smoking again. History of Present Illness Reason for Consultation: Acute myocardial infarction Attending Physician: Todd Landry MD History of Present Illness This is a 49-year-old woman with a history of diabetes, hypertension, dyslipidemia and tobacco abuse. She presented with chest discomfort and inferior ST elevation. Her troponin was slightly elevated, this was consistent with an acute coronary event therefore she was taken to the [facility] this morning. At catheterization she was noted to have severe coronary artery disease in the right coronary artery and intervention was performed in the distal RCA. Now seeing her post intervention she is doing quite well, she is not having any chest discomfort, she denies lightheadedness, dizziness or palpitations. Allergies Allergy/AdvReac Type Severity Reaction Status Date / Time diphenhydramine Allergy Intermediate SWELLING Verified 06/12/20 04:50 Penicillins Allergy Intermediate SWELLING Verified 06/12/20 04:50 aspirin AdvReac Intermediate NOSEBLEEDS Verified 06/12/20 04:50 METALS Allergy Intermediate WELTS, Uncoded 06/12/20 04:50 ITCHING ON SKIN Home Medications Home Medications Medication Instructions Recorded Confirmed Type adapalene 0.1 % topical gel 1 appln TOPICAL DAILY gm 06/01/19 06/12/20 History albuterol sulfate 90 mcg/actuation 2 puffs INHALATION Q4H PRN #1 gm 06/01/19 06/12/20 History aerosol inhaler azelastine 137 mcg (0.1 %) nasal 2 sprays INTRANASAL BID ml 06/01/19 06/12/20 History spray aerosol cyanocobalamin (vitamin B-12) 1,000 mcg PO DAILY 06/01/19 06/12/20 History 1,000 mcg capsule mometasone 50 mcg/actuation nasal 2 sprays INTRANASAL DAILY gm 06/01/19 06/12/20 History spray omeprazole 20 mg capsule,delayed 20 mg PO DAILY #60 cap 07/15/19 06/12/20 Rx release budesonide-formoterol HFA 80 2 puffs INH BID #3 inhaler 09/04/19 06/12/20 Rx mcg-4.5 mcg/actuation aerosol inhaler famotidine 20 mg tablet 20 mg PO BID 30 Days #60 tab 09/28/19 06/12/20 Rx coQ10 (ubiquinol) 100 mg capsule 100 mg PO DAILY cap 11/10/19 06/12/20 History diltiazem HCl 240 mg 240 mg PO BID #60 cap 11/10/19 06/12/20 History capsule,extended release 24 hr fexofenadine 60 mg-pseudoephedrine 1 tab PO BID tab 11/10/19 06/12/20 History ER 120 mg tablet,ext.release,12 hr guaifenesin 600 mg tablet, 600 mg PO BID PRN 11/10/19 06/12/20 History extended release 12 hr hydrochlorothiazide 25 mg tablet 25 mg PO DAILY #90 tab 11/10/19 06/12/20 History levothyroxine 75 mcg tablet See Rx Instructions .ROUTE 11/10/19 06/12/20 History .COMPLEX tab montelukast 10 mg tablet 10 mg PO DAILY tab 11/10/19 06/12/20 History potassium chloride 20 mEq 20 meq PO DAILY tab 11/10/19 06/12/20 History tablet,extended release pravastatin 40 mg tablet 40 mg PO DAILY tab 11/10/19 06/12/20 History promethazine 25 mg tablet 25 mg PO DIRECTED PRN tab 11/10/19 06/12/20 History sumatriptan succinate 100 mg tablet 100 mg PO DIRECTED PRN tab 11/10/19 06/12/20 History nicotine 14 mg/24 hr daily 1 patch TD DAILY #28 ea 04/11/20 06/12/20 Rx transdermal patch [id number] 1 cap PO DAILY 06/12/20 06/12/20 History [Krill Oil ([place] 3 and 6)] metformin 750 mg PO BID 06/12/20 06/12/20 History naproxen sodium 550 mg PO BID 06/12/20 06/12/20 History Patient History Medical History Abnormal finding on mammography Allergic rhinitis due to animal dander Allergic rhinitis due to pollen Chronic hoarseness Dyslipidemia Eustachian tube dysfunction Extrinsic asthma Hypertension Laryngopharyngeal reflux disease Lateral femoral cutaneous neuropathy Lump or mass in breast Mild persistent asthma Obstructive sleep apnea Postoperative pain Sinus tachycardia Tobacco abuse Surgical History H/O total hysterectomy History of colposcopy History of cryosurgery Cervical History of dental surgery History of tooth extraction Status post hysteroscopic ablation of endometrium Family History Father Hypertension Cancer Cardiac disorder Heart disease Mother Asthma Allergies Sinusitis Hypertension Grandmother Uterine cancer Cervical cancer Uncle Asthma FHx: deafness or hearing loss Allergies Sinusitis Hypertension Cancer Cardiac disorder Grandfather Cardiac disorder Grandmother Cancer Social History Smoking Status: Current every day smoker Tobacco Type: Cigarettes Cigarettes Per Day: 20; Second Hand Exposure: No; Do You Dip or Chew Tobacco: No; Tobacco Cessation Education Requested by Patient: No Hx Alcohol Use: Yes Alcohol type: beer Hx Substance Use: No Preferred Language: Faroese Communication Ability: Effective 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 HEENT: Unremarkable Neck: No jugular venous distention, carotid pulses are normal and equal bilaterally without bruits. Pulmonary: Clear to auscultation bilaterally. Cardiac: Regular rhythm with no murmur, gallop or rub. Abdomen: Soft, nontender with normal bowel sounds. Extremities: No edema. Distal pulses intact. Right wrist has a compression device following her recent catheterization. Neurologic: No focal findings. Gait is steady. Skin: No rash, ecchymoses or petechiae. Results & Data ([facility]) Vital Signs (Past 12 Hours) Vital Signs Temp Pulse Pulse Resp BP BP Pulse Ox 06/12/20 08:35 97 H 16 95 06/12/20 08:00 110 H 16 111/89 96 06/12/20 07:35 93 H 18 124/72 95 06/12/20 07:20 93 H 16 125/78 95 06/12/20 07:00 36.6 C 93 H 17 125/78 95 06/12/20 05:30 87 13 106/73 97 06/12/20 05:15 98 H 12 107/69 96 06/12/20 05:00 74 14 106/62 93 06/12/20 04:44 73 18 108/67 95 06/12/20 04:29 89 20 127/77 95 06/12/20 04:03 36.3 C L 76 18 119/78 97 Laboratory Results Cardiac Enzymes 06/12/20 Range/Units 04:20 Troponin I 0.118 H* (0-0.045) ng/ml Coagulation 06/12/20 Range/Units 04:20 PT 9.6 (9.0-12.0) Seconds APTT 26.2 (21.0-31.0) Seconds CBC 06/12/20 Range/Units 04:20 WBC 17.87 H (4.8-10.8) K/uL RBC 5.09 (4.2-5.4) M/uL Hgb 15.8 (12.0-16.0) g/dL Hct 46.3 (37-47) % Plt Count 401 H (130-400) K/uL Neut # (Auto) 10.63 H (1.4-6.5) K/uL Lymph # (Auto) 5.16 H (1.2-3.4) K/uL [place] # (Auto) 1.69 H (0.11-0.59) K/uL Eos # (Auto) 0.26 (0-0.5) K/uL Baso # (Auto) 0.02 (0-0.2) K/uL Comprehensive Metabolic Panel 06/12/20 Range/Units 04:20 Sodium 142 (136-145) mmol/L Potassium 3.8 (3.5-5.1) mmol/L Chloride 110 H (98-107) mmol/L Carbon Dioxide 25 (21-32) mmol/L BUN 22 H (7-18) mg/dl Creatinine 0.81 (0.6-1.2) mg/dl Glucose 125 H (70-99) mg/dl Calcium 9.4 (8.5-10.1) mg/dl Intake and Output 06/11/20 06/12/20 06/12/20 22:59 06:59 14:59 Other: Weight 78.3 kg 78.3 kg Patient Weight 06/13/20 06:59 Weight 78.3 kg Diagnostic Findings Telemetry: Sinus rhythm, no significant arrhythmia Electrocardiogram: Review of her electrocardiogram shows that she had fluctuating inferior ST changes including some ST elevation preceding intervention. All showed sinus rhythm. PG Care Time/CCT Total # of Minutes Spent Total Time Spent with Patient: Total time spent is greater than 50% in coordination of care (as documented) at patient's floor/unit and/or counseling patient: Coding Level of Care Code 86799 Initial Inpt Care Lvl 3 Diagnoses STEMI (ST elevation myocardial infarction) I21.3 CAD (coronary artery disease) I25.10 Hypertension I10 Tobacco use Z72.0
--- NOTE | 2020-06-12 11:56 | XCELERA ---
[id number]
--- NOTE | 2020-06-12 13:30 | History & Physical Report ---
Date of Service June 12, 2020 Assessment & Plan (1) ACS (acute coronary syndrome): Impression: 49-year-old female presents to the ICU post heart cath with successful PCI x3 with DOUGLAS to RCA - STEMI -Continue ASA, BB, statin, Plavix patient feels she is an untoward side effect to metoprolol with her last attempt using it and subsequently put on carvedilol likely buys her statin will be converted from pravastatin to atorvastatin -Trend troponins repeat -Cardiology note LV function was preserved during catheterization but does request follow-up echo (2) Diabetes: Reportedly the patient previously on basal glargine 30 to 35 units a day was switched to metformin by her outpatient provider at 750 twice daily. Metformin is being held given her recent cardiovascular testing with intravenous contrast media. Subsequently we will reduce her previous dose of glargine down to 15 twice daily with insulin sliding scale and carbohydrate coverage (3) Tobacco use: She does continue to smoke currently, she tells me she quit for about 10 years in the past but then took it up again. She is willing to stop smoking again. (4) Mild persistent asthma: Patient be maintained on inhaled medications at this point time (5) Dyslipidemia: Pravastatin is converted to atorvastatin for more potent statin (6) Hypertension: Previously she has been on diltiazem but she will be switched to a beta- bobby given her recent RI (7) Obstructive sleep apnea: Patient states that she was tested for sleep apnea and has not have a noninvasive positive pressure device at home is not willing to consider at this time (8) STEMI (ST elevation myocardial infarction): She is feeling well post intervention, no residual chest discomfort. We will continue with post intervention care and respect her management. Admission and Anticipated Discharge Date Admission Date: June 12, 2020 History of Present Illness Primary Care Provider: Austin Preciado MD Was called to evaluate this patient after she had already been to the heart the [facility] heterization lab and had drug-eluting stent placed in right coronary artery for ST elevation RI seen in the emergency department. This49 yr old female with history DMII, HTN, DLP, Tobacco use, asthma and father with CAD history arrives with left chest pain to shoulder, neck and back. This was second occurrence in last 24 hours. EKG on arrival with ischemic changes with ST changes inferiorly. Pain initially improved was given aspirin however then pain worsened did not resolve with 3 nitroglycerin.. Patient was taken to [facility] and a drug-eluting stent placed in her right coronary artery by Dr. Collins Campbell. In the ICU after the procedure she was pain-free she was complaining of discomfort in her wrist where the pressure band was in place she was demanding her Rebecca-D for allergies Allergies Allergy/AdvReac Type Severity Reaction Status Date / Time diphenhydramine Allergy Intermediate SWELLING Verified 06/12/20 04:50 Penicillins Allergy Intermediate SWELLING Verified 06/12/20 04:50 aspirin AdvReac Intermediate NOSEBLEEDS Verified 06/12/20 04:50 METALS Allergy Intermediate WELTS, Uncoded 06/12/20 04:50 ITCHING ON SKIN Home Medications Home Medications Medication Instructions Recorded Confirmed Type adapalene 0.1 % topical gel 1 appln TOPICAL DAILY gm 06/01/19 06/12/20 History albuterol sulfate 90 mcg/actuation 2 puffs INHALATION Q4H PRN #1 gm 06/01/19 06/12/20 History aerosol inhaler azelastine 137 mcg (0.1 %) nasal 2 sprays INTRANASAL BID ml 06/01/19 06/12/20 History spray aerosol cyanocobalamin (vitamin B-12) 1,000 mcg PO DAILY 06/01/19 06/12/20 History 1,000 mcg capsule mometasone 50 mcg/actuation nasal 2 sprays INTRANASAL DAILY gm 06/01/19 06/12/20 History spray omeprazole 20 mg capsule,delayed 20 mg PO DAILY #60 cap 07/15/19 06/12/20 Rx release budesonide-formoterol HFA 80 2 puffs INH BID #3 inhaler 09/04/19 06/12/20 Rx mcg-4.5 mcg/actuation aerosol inhaler famotidine 20 mg tablet 20 mg PO BID 30 Days #60 tab 09/28/19 06/12/20 Rx coQ10 (ubiquinol) 100 mg capsule 100 mg PO DAILY cap 11/10/19 06/12/20 History diltiazem HCl 240 mg 240 mg PO BID #60 cap 11/10/19 06/12/20 History capsule,extended release 24 hr fexofenadine 60 mg-pseudoephedrine 1 tab PO BID tab 11/10/19 06/12/20 History ER 120 mg tablet,ext.release,12 hr guaifenesin 600 mg tablet, 600 mg PO BID PRN 11/10/19 06/12/20 History extended release 12 hr hydrochlorothiazide 25 mg tablet 25 mg PO DAILY #90 tab 11/10/19 06/12/20 History levothyroxine 75 mcg tablet See Rx Instructions .ROUTE 11/10/19 06/12/20 History .COMPLEX tab montelukast 10 mg tablet 10 mg PO DAILY tab 11/10/19 06/12/20 History potassium chloride 20 mEq 20 meq PO DAILY tab 11/10/19 06/12/20 History tablet,extended release pravastatin 40 mg tablet 40 mg PO DAILY tab 11/10/19 06/12/20 History promethazine 25 mg tablet 25 mg PO DIRECTED PRN tab 11/10/19 06/12/20 History sumatriptan succinate 100 mg tablet 100 mg PO DIRECTED PRN tab 11/10/19 06/12/20 History nicotine 14 mg/24 hr daily 1 patch TD DAILY #28 ea 04/11/20 06/12/20 Rx transdermal patch [id number] 1 cap PO DAILY 06/12/20 06/12/20 History [Krill Oil ([place] 3 and 6)] metformin 750 mg PO BID 06/12/20 06/12/20 History naproxen sodium 550 mg PO BID 06/12/20 06/12/20 History Past Med/Surg History Medical History Abnormal finding on mammography Allergic rhinitis due to animal dander Allergic rhinitis due to pollen Chronic hoarseness Dyslipidemia Eustachian tube dysfunction Extrinsic asthma Hypertension Laryngopharyngeal reflux disease Lateral femoral cutaneous neuropathy Lump or mass in breast Mild persistent asthma Obstructive sleep apnea Postoperative pain Sinus tachycardia Tobacco abuse Surgical History H/O total hysterectomy History of colposcopy History of cryosurgery Cervical History of dental surgery History of tooth extraction Status post hysteroscopic ablation of endometrium Family History Father Hypertension Cancer Cardiac disorder Heart disease Mother Asthma Allergies Sinusitis Hypertension Grandmother Uterine cancer Cervical cancer Uncle Asthma FHx: deafness or hearing loss Allergies Sinusitis Hypertension Cancer Cardiac disorder Grandfather Cardiac disorder Grandmother Cancer Social History Smoking Status: Current every day smoker Tobacco Type: Cigarettes Cigarettes Per Day: 20; Second Hand Exposure: No; Do You Dip or Chew Tobacco: No; Tobacco Cessation Education Requested by Patient: No Hx Alcohol Use: Yes Alcohol type: beer Hx Substance Use: No Preferred Language: Kosovan Communication Ability: Effective Fiberglass Finisher Required: No Beliefs That Will Affect Care: None Current Living Situation: Spouse Other Information That Helps Us Care for You: No Feels Safe at Home: Yes Safety Concerns: Feels Safe At This Time Assistive Devices: Glasses Assistive Devices Comment: Wears glasses - not here with pt Review of Systems Review of Systems: Currently her chest pain is resolved and she is more bothered by her right wrist discomfort no headache, blurry or double vision no speech or swallowing issues no chest pain, pressure or palpitations no shortness of breath, cough or wheezes no abdominal pain, nausea or vomiting, diarrhea or constipation no dysuria, hematuria or frequency Right wrist pain no lack of sensation no back pain, CVA tenderness or radicular pain no bruising, bleeding or rashes no focal signs of weakness or numbness or altered sensation no complaints or anxiety or depression. Physical Exam Physical Exam: The patient appeared well nourished and normally developed. Vital signs as documented. Head exam is normocephalic atraumatic no scleral icterus Neck is without JVD, thyromegaly, or carotid bruits. Lungs are clear to auscultation, no focal loss of breath sounds Cardiac exam, Rhythm is regular.. No murmurs, rubs or gallops. Abdominal exam reveals normal bowel sounds, soft non tender, no masses Extremities she is sensation and strength intact to her hand her post procedure pressure band is protocol to resolve over the next few hours Neurologic exam is alert and oriented, no focal loss of strength or sensation Skin is without bruises or rashes Psychologically is without concerns for anxiety or depression. Results & Data Results & Data ([facility]) Vital Signs (Past 12 Hours) Vital Signs Temp Pulse Pulse Resp BP BP Pulse Ox 06/12/20 13:15 78 22 94 06/12/20 13:13 76 16 140/84 93 06/12/20 13:03 84 21 140/84 93 06/12/20 13:00 103 H 21 97 06/12/20 12:52 96 H 16 06/12/20 12:33 89 17 112/98 95 06/12/20 12:30 92 H 21 95 06/12/20 12:15 74 24 91 06/12/20 12:03 79 25 H 114/84 92 06/12/20 12:00 82 19 94 06/12/20 11:45 69 24 93 06/12/20 11:30 75 21 91 06/12/20 11:15 75 19 93 06/12/20 11:09 83 16 113/77 95 06/12/20 11:03 80 15 113/77 94 06/12/20 11:00 81 24 93 06/12/20 10:48 78 24 107/72 93 06/12/20 10:45 80 26 H 93 06/12/20 10:35 79 16 106/65 93 06/12/20 10:33 89 17 106/65 94 06/12/20 10:30 93 H 15 95 06/12/20 10:18 78 25 H 117/79 94 06/12/20 10:15 88 28 H 94 06/12/20 10:05 97 H 21 06/12/20 09:47 87 23 118/69 95 06/12/20 09:45 100 H 14 96 06/12/20 09:33 87 23 99/65 L 93 06/12/20 09:30 90 25 H 94 06/12/20 09:18 86 25 H 109/68 93 06/12/20 09:15 94 H 19 94 06/12/20 09:00 88 20 94 06/12/20 08:48 90 19 181/93 H 96 06/12/20 08:45 92 H 20 95 06/12/20 08:35 97 H 16 95 06/12/20 08:33 100 H 16 95 06/12/20 08:30 107 H 19 97 06/12/20 08:17 101 H 16 119/67 96 06/12/20 08:15 101 H 17 93 06/12/20 08:03 110 H 32 H 111/89 95 06/12/20 08:00 107 H 110 H 19 111/89 95 06/12/20 07:45 95 H 32 H 06/12/20 07:35 93 H 18 124/72 95 06/12/20 07:32 92 H 19 124/72 96 06/12/20 07:30 95 H 19 97 06/12/20 07:20 93 H 16 125/78 95 06/12/20 07:17 96 H 19 125/78 96 06/12/20 07:15 92 H 25 H 96 06/12/20 07:02 95 H 23 118/72 96 06/12/20 07:00 97.9 F 93 H 17 125/78 95 06/12/20 05:30 87 13 106/73 97 06/12/20 05:15 98 H 12 107/69 96 06/12/20 05:00 74 14 106/62 93 06/12/20 04:44 73 18 108/67 95 06/12/20 04:29 89 20 127/77 95 06/12/20 04:03 97.3 F L 76 18 119/78 97 chest x-ray are unremarkable EKG shows sinus rhythm with inferior ST changes prior to catheterization Code Status & VTE Plan VTE Prophylaxis Plan VTE Prophylaxis will be ordered: Yes PG Care Time/CCT Total # of Minutes Spent Total Time Spent with Patient: Total time spent is greater than 50% in coordination of care (as documented) at patient's floor/unit and/or counseling patient: Coding Level of Care Code 14477 Initial Inpt Care Lvl 2 Diagnoses ACS (acute coronary syndrome) I24.9 Diabetes E11.9 Tobacco use Z72.0 Mild persistent asthma J45.30 Dyslipidemia E78.5 Hypertension I10 Obstructive sleep apnea G47.33 STEMI (ST elevation myocardial infarction) I21.3
[2020-06-12] MEDS: INSULIN ASPART 100 UNITS/ML 3 ML PEN SC SCH ×3 (13:31→20:51)
--- NOTE | 2020-06-12 16:46 | Cardiology Consultation ---
Date of Consultation June 12, 2020 Assessment & Plan (1) Acute non-ST elevation myocardial infarction (NSTEMI): s/p PCI with DOUGLAS: Integrilin gtt for 12 hrs. DAPT with ASA 325 mg and plavix 75 mg daily for 1-2 years. Change ASA to 81 mg after 30 days. Guideline directed medical therapy for secondary prevention of CAD to include; ASA, high intensity statin, beta bobby, and ACEi/ARB. Can dc diltiazem if tolerates metoprolol (reactive airway dz). ACEi or ARB indicated for CAD plus DM. Primary prevention includes abstinence from tobacco, regular CV exercise, and cardiac/diabetic prudent diet. Highly recommend cardiac rehab. 48 hrs recommended for minimum observation post DE. Trend troponin to peak. Echo to confirm EF, wall motion abnormalities, and to evaluate valves. Present on Admission?: Yes (2) Dyslipidemia: High risk. DM and CAD. High intensity statin therapy with target LDL reduction of 50%. Was already on pravastatin 40 mg. Check LDL and if not around 70 or less then increase Pravastatin to 80 mg. Present on Admission?: Yes (3) Hypertension: BP elevated on admission but improved post procedure. Will follow with target SBP less than 140 mm Hg. Recent diagnosis now with known CAD. Guidelines recommend beta bobby and ACEi or ARB as minimum regimen. She may have trouble tolerating higher dose beta bobby but may tolerate low dose metoprolol 25 mg bid if reactive airway disease not severe. Either ACEi or ARB is indicated specifically for diabetes and CAD. Given her chronic cough I would favor using ARB. Present on Admission?: Yes History of Present Illness Reason for Consultation: AMI Attending Physician: Todd Landry MD History of Present Illness 49 yo female smoker, newly diagnosed DM, presented with c/o intermittent chest pain which started at around 1300 on the day prior to presentation. Mostly pressure like pain but also some sharp pain and SOB. Radiation to arm. In ED had serial EKGs which suggested dynamic ST changes and she continued with mild chest discomfort. The initial troponin ws modestly elevated. I was asked to see her regarding NSTEMI and need for cath. Only prior cardiac diagnosis was tachycardia. After discussion with patient, decision was made to proceed directly to the cath lab tech for definitive evaluation by coronary angiography +/- PCI as indicated. This demonstrated severe multi-lesion RCA and PDA disease with findings of acute coronary syndrome. She underwent PCI of PDA and RCA with implant of 3 DOUGLAS. No complications. She has been admitted for further workup and management. Allergies Allergy/AdvReac Type Severity Reaction Status Date / Time diphenhydramine Allergy Intermediate SWELLING Verified 06/12/20 04:50 Penicillins Allergy Intermediate SWELLING Verified 06/12/20 04:50 aspirin AdvReac Intermediate NOSEBLEEDS Verified 06/12/20 04:50 METALS Allergy Intermediate WELTS, Uncoded 06/12/20 04:50 ITCHING ON SKIN Home Medications Home Medications Medication Instructions Recorded Confirmed Type adapalene 0.1 % topical gel 1 appln TOPICAL DAILY gm 06/01/19 06/12/20 History albuterol sulfate 90 mcg/actuation 2 puffs INHALATION Q4H PRN #1 gm 06/01/19 06/12/20 History aerosol inhaler azelastine 137 mcg (0.1 %) nasal 2 sprays INTRANASAL BID ml 06/01/19 06/12/20 History spray aerosol cyanocobalamin (vitamin B-12) 1,000 mcg PO DAILY 06/01/19 06/12/20 History 1,000 mcg capsule mometasone 50 mcg/actuation nasal 2 sprays INTRANASAL DAILY gm 06/01/19 06/12/20 History spray omeprazole 20 mg capsule,delayed 20 mg PO DAILY #60 cap 07/15/19 06/12/20 Rx release budesonide-formoterol HFA 80 2 puffs INH BID #3 inhaler 09/04/19 06/12/20 Rx mcg-4.5 mcg/actuation aerosol inhaler famotidine 20 mg tablet 20 mg PO BID 30 Days #60 tab 09/28/19 06/12/20 Rx coQ10 (ubiquinol) 100 mg capsule 100 mg PO DAILY cap 11/10/19 06/12/20 History diltiazem HCl 240 mg 240 mg PO BID #60 cap 11/10/19 06/12/20 History capsule,extended release 24 hr fexofenadine 60 mg-pseudoephedrine 1 tab PO BID tab 11/10/19 06/12/20 History ER 120 mg tablet,ext.release,12 hr guaifenesin 600 mg tablet, 600 mg PO BID PRN 11/10/19 06/12/20 History extended release 12 hr hydrochlorothiazide 25 mg tablet 25 mg PO DAILY #90 tab 11/10/19 06/12/20 History levothyroxine 75 mcg tablet See Rx Instructions .ROUTE 11/10/19 06/12/20 History .COMPLEX tab montelukast 10 mg tablet 10 mg PO DAILY tab 11/10/19 06/12/20 History potassium chloride 20 mEq 20 meq PO DAILY tab 11/10/19 06/12/20 History tablet,extended release pravastatin 40 mg tablet 40 mg PO DAILY tab 11/10/19 06/12/20 History promethazine 25 mg tablet 25 mg PO DIRECTED PRN tab 11/10/19 06/12/20 History sumatriptan succinate 100 mg tablet 100 mg PO DIRECTED PRN tab 11/10/19 06/12/20 History nicotine 14 mg/24 hr daily 1 patch TD DAILY #28 ea 04/11/20 06/12/20 Rx transdermal patch [id number] 1 cap PO DAILY 06/12/20 06/12/20 History [Krill Oil ([place] 3 and 6)] metformin 750 mg PO BID 06/12/20 06/12/20 History naproxen sodium 550 mg PO BID 06/12/20 06/12/20 History Patient History Medical History Abnormal finding on mammography Allergic rhinitis due to animal dander Allergic rhinitis due to pollen Chronic hoarseness Dyslipidemia Eustachian tube dysfunction Extrinsic asthma Hypertension Laryngopharyngeal reflux disease Lateral femoral cutaneous neuropathy Lump or mass in breast Mild persistent asthma Obstructive sleep apnea Postoperative pain Sinus tachycardia Tobacco abuse Surgical History H/O total hysterectomy History of colposcopy History of cryosurgery Cervical History of dental surgery History of tooth extraction Status post hysteroscopic ablation of endometrium Family History Father Hypertension Cancer Cardiac disorder Heart disease Mother Asthma Allergies Sinusitis Hypertension Grandmother Uterine cancer Cervical cancer Uncle Asthma FHx: deafness or hearing loss Allergies Sinusitis Hypertension Cancer Cardiac disorder Grandfather Cardiac disorder Grandmother Cancer Social History Smoking Status: Current every day smoker Tobacco Type: Cigarettes Cigarettes Per Day: 20; Second Hand Exposure: No; Do You Dip or Chew Tobacco: No; Tobacco Cessation Education Requested by Patient: No Hx Alcohol Use: Yes Alcohol type: beer Hx Substance Use: No Preferred Language: Niuean Communication Ability: Effective Wheel Tuner Required: No Beliefs That Will Affect Care: None Current Living Situation: Spouse Other Information That Helps Us Care for You: No Feels Safe at Home: Yes Safety Concerns: Feels Safe At This Time Assistive Devices: Glasses Assistive Devices Comment: Wears glasses - not here with pt Review of Systems Review of Systems: Denies precedent anginal symptoms. No dyspnea, F/C. Denies syncope, near syncope, orthopnea, PND, palpitations, and edema. Known sinus tachycardia. Has long standing allergic rhinitis which she states is severe. Associated cough and rhinorrhea. Also with significant asthma. The remainder of her 12 point review of systems is negative except as per HPI. Physical Exam Physical Exam: G: A/A/O, mild anxiety and distress. Obese MAWF. HEENT: EOMI, OMPMI. Sclera anicteric neck: no JVD L: scattered wheezing. Good air movement. No ronchi or crackles. CV: regular rhythm, mild tachycardia. ST on monitor. Soft systolic murmur. Abd: soft, NT/ND. NABS. Ext: 1-2+ radial pulse. Distal LE pulses 1+. No edema. Neuro: Cognition intact. Speech fluent. No focal deficits. No tremor. Results & Data ([facility]) Vital Signs (Past 12 Hours) Vital Signs Temp Pulse Pulse Resp BP BP Pulse Ox 06/12/20 16:00 78 22 93 06/12/20 15:33 92 H 18 122/79 95 06/12/20 15:30 78 23 94 06/12/20 15:00 87 27 H 93 06/12/20 14:30 79 20 91 06/12/20 14:00 81 77 22 93 06/12/20 13:34 84 16 135/75 94 06/12/20 13:30 76 24 93 06/12/20 13:15 78 22 94 06/12/20 13:13 76 16 140/84 93 06/12/20 13:03 84 21 140/84 93 06/12/20 13:00 103 H 21 97 06/12/20 12:52 96 H 16 06/12/20 12:33 89 17 112/98 95 06/12/20 12:30 92 H 21 95 06/12/20 12:15 74 24 91 06/12/20 12:03 79 25 H 114/84 92 06/12/20 12:00 82 19 94 06/12/20 11:45 69 24 93 06/12/20 11:30 75 21 91 06/12/20 11:15 75 19 93 06/12/20 11:09 83 16 113/77 95 06/12/20 11:03 80 15 113/77 94 06/12/20 11:00 81 24 93 06/12/20 10:48 78 24 107/72 93 06/12/20 10:45 80 26 H 93 06/12/20 10:35 79 16 106/65 93 06/12/20 10:33 89 17 106/65 94 06/12/20 10:30 93 H 15 95 06/12/20 10:18 78 25 H 117/79 94 06/12/20 10:15 88 28 H 94 06/12/20 10:05 97 H 21 06/12/20 09:47 87 23 118/69 95 06/12/20 09:45 100 H 14 96 06/12/20 09:33 87 23 99/65 L 93 06/12/20 09:30 90 25 H 94 06/12/20 09:18 86 25 H 109/68 93 06/12/20 09:15 94 H 19 94 06/12/20 09:00 88 20 94 06/12/20 08:48 90 19 181/93 H 96 06/12/20 08:45 92 H 20 95 06/12/20 08:35 97 H 16 95 06/12/20 08:33 100 H 16 95 06/12/20 08:30 107 H 19 97 06/12/20 08:17 101 H 16 119/67 96 06/12/20 08:15 101 H 17 93 06/12/20 08:03 110 H 32 H 111/89 95 06/12/20 08:00 107 H 110 H 19 111/89 95 06/12/20 07:45 95 H 32 H 06/12/20 07:35 93 H 18 124/72 95 06/12/20 07:32 92 H 19 124/72 96 06/12/20 07:30 95 H 19 97 09/27/20 07:20 93 H 16 125/78 95 06/12/20 07:17 96 H 19 125/78 96 06/12/20 07:15 92 H 25 H 96 06/12/20 07:02 95 H 23 118/72 96 06/12/20 07:00 36.6 C 93 H 17 125/78 95 06/12/20 05:30 87 13 106/73 97 06/12/20 05:15 98 H 12 107/69 96 06/12/20 05:00 74 14 106/62 93 06/12/20 04:44 73 18 108/67 95 06/12/20 04:29 89 20 127/77 95 (1) Hypertension Hypertension type: essential hypertension Qualified Code(s): I10 - Essential (primary) hypertension
[2020-06-12] MEDS: carvediloL 6.25 MG TAB PO SCH (20:41)
[2020-06-12] MEDS: FEXOFENADINE 60 MG TAB PO SCH (20:42)
[2020-06-13 04:44] LABS: Basophils # (auto) 0.02 K/uL (0-0.2); Basophils % (auto) 0.1 %; Eosinophils # (auto) 0.15 K/uL (0-0.5); Hemoglobin 15.1 g/dL (12.0-16.0); Immature Granulocytes % (auto) 0.7 %; Lymphocytes # (auto) 3.41 K/uL (1.2-3.4); Lymphocytes % (auto) 22.6 %; Mean Corpuscular Hemoglobin 31.1 pg (25-34); Mean Corpuscular Hgb Conc 34.3 g/dL (32-36); Mean Corpuscular Volume 90.5 fL (80-100); Mean Platelet Volume 9.8 fL (7.4-10.4); Monocytes # (auto) 1.45 K/uL (0.11-0.59); Monocytes % (auto) 9.6 %; Neutrophils # (auto) 9.95 K/uL (1.4-6.5); Platelet Count 345 K/uL (130-400); RDW Coefficient of Variation 13.8 % (11.5-14.5); RDW Standard Deviation 45.4 fL (36.4-46.3); Red Blood Count 4.86 M/uL (4.2-5.4); White Blood Count 15.08 K/uL (4.8-10.8)
[2020-06-13 05:01] LABS: BUN Creatinine Ratio 20.9 (10-20); Creatinine Clr Calc Pharmacy 88.5 ml/min; Est GFR (African American) 113.2; Est GFR (Non-African American) 97.7; Potassium 3.5 mmol/L (3.5-5.1)
[2020-06-13 05:24] LABS: Thyroid Stimulating Hormone 1.25 uIu/ml (0.300-4.500); Troponin I 1.36 ng/ml (0-0.045)
[2020-06-13] MEDS: LEVOTHYROXINE SODIUM 75 MCG TABLET PO SCH (05:28)
[2020-06-13] MEDS ORDERED: POTASSIUM CHLORIDE 20 MEQ TABCR PO STA (05:33)
[2020-06-13 05:55] LABS: Estimated Average Glucose 123 mg/dl; Hemoglobin A1C 5.9 % (4.5-5.6)
[2020-06-13] MEDS ORDERED: ACETAMINOPHEN 325 MG TAB PO STA (06:28)
[2020-06-13] MEDS ORDERED: ACETAMINOPHEN 500 MG TAB PO PRN (06:31)
[2020-06-13] MEDS: FEXOFENADINE 60 MG TAB PO SCH ×2 (07:25→20:36)
[2020-06-13] MEDS: carvediloL 6.25 MG TAB PO SCH (07:25)
[2020-06-13] MEDS: FLUTICASONE/VILANTEROL 100/25MCG 14 PUFFS/INHALER INH SCH (07:25)
[2020-06-13] MEDS: ASPIRIN 81 MG ECTAB PO SCH (07:26)
[2020-06-13] MEDS: CYANOCOBALAMIN 500 MCG TABLET (VITAMIN B-12) PO SCH (07:26)
[2020-06-13] MEDS: MONTELUKAST SODIUM 10 MG TABLET PO SCH (07:26)
[2020-06-13] MEDS: FAMOTIDINE 20 MG TAB PO SCH ×2 (07:26→20:37)
[2020-06-13] MEDS: INSULIN GLARGINE SOLOSTAR 100 UNITS/ML 3 ML PEN SC SCH (07:27)
[2020-06-13] MEDS: ATORVASTATIN 40 MG TAB PO SCH (07:27)
[2020-06-13] MEDS: CLOPIDOGREL BISULFATE 75 MG TAB PO SCH (07:27)
[2020-06-13] MEDS: FLUTICASONE PROPIONATE NA SPR 16 GM BTL SCH (07:38)
[2020-06-13] MEDS: INSULIN ASPART 100 UNITS/ML 3 ML PEN SC SCH ×4 (07:45→21:53)
--- NOTE | 2020-06-13 08:03 | Critical Care Progress Note ---
Date of Service June 13, 2020 Assessment & Plan (1) Acute non-ST elevation myocardial infarction (NSTEMI): 49-year-old female with a past medical history of coronary artery disease, tobacco abuse, asthma who presented to the hospital with a STEMI. Continue ASCVD usual care. Continue dual antiplatelets and high-dose statin. Continue beta-bobby. Patient is complaining about her cough and would like her Rebecca-D. I would like to hold off for another day given that she just had a STEMI. Ordering Tessalon Perles. Troponin level is trending up slightly. Patient without any chest pain. A1c is 5.9. Lipid levels do not appear to have been checked. Will check tomorrow morning. Echocardiogram with EF of 65 to 70%. Mild LVH. No significant wall motion abnormalities. Patient is stable to be transferred to the floor. This was discussed with the hospitalist and the bedside nurse. Notably, the patient does want to go home. I encouraged her to discuss this with her cupola worker. (2) Diabetes: (3) CAD (coronary artery disease): (4) STEMI (ST elevation myocardial infarction): (5) Tobacco use: (6) Mild persistent asthma: Admission and Anticipated Discharge Date Admission Date: June 12, 2020 Subjective Patient seen and examined this morning. She denies all complaints other than mild cough. No fevers or chills. Minimal chest pain. Review of Systems Review of Systems: All systems reviewed & are unremarkable except as noted in HPI & below Physical Exam Constitutional: WD/WN, vitals as above Eyes: PERRL, conjunctivae normal, anicteric sclerae ENMT: external ear and nose normal, oropharynx normal Neck: trachea midline, no thyromegaly Respiratory: normal respiratory effort, lungs clear to auscultation Cardiovascular: RRR, no murmur, no edema Heart Sounds: normal S1 and normal S2 Vessels: no JVD Extremities: normal capillary refill Gastrointestinal (Abdomen): normal bowel sounds, soft, nontender, no hepa tosplenomegaly Musculoskeletal: no cyanosis or clubbing, extremities motor strength 5/5 Skin: no rashes, warm and dry Neurologic: PERRL, EOMI, accommodation nl, no face palsy, no dysarthria Psychiatric: A+Ox3, euthymic affect Results & Data Results & Data ([facility]) Vital Signs (Past 12 Hours) Vital Signs Temp Pulse Resp BP Pulse Ox 06/13/20 05:03 70 19 123/101 H 92 06/13/20 04:19 91 H 23 154/107 H 94 06/13/20 03:03 92 H 22 126/80 91 06/13/20 02:03 93 H 18 150/88 H 95 06/13/20 01:03 84 19 134/82 92 06/13/20 00:03 97.9 F 101 H 22 127/93 94 06/13/20 00:00 101 H 06/12/20 22:53 97.9 F 79 20 149/95 H 92 06/12/20 21:53 93 H 19 147/98 H 96 06/12/20 20:53 95 H 22 130/81 95 06/12/20 20:34 98.2 F 84 20 133/84 93 reviewed vital signs and labs Coding Level of Care Code 45610 Subseq Hosp Care Lvl 3 Diagnoses Acute non-ST elevation myocardial infarction (NSTEMI) I21.4 Diabetes E11.9 CAD (coronary artery disease) I25.10 STEMI (ST elevation myocardial infarction) I21.3 Tobacco use Z72.0 Mild persistent asthma J45.30
--- NOTE | 2020-06-13 08:17 | Electrocardiogram Report ---
Test Reason : Blood Pressure : / mmHG Vent. Rate : 091 BPM Atrial Rate : 091 BPM P-R Int : 146 ms QRS Dur : 078 ms QT Int : 378 ms P-R-T Axes : 024 -22 067 degrees QTc Int : 464 ms Normal sinus rhythm Cannot rule out Anterior infarct , age undetermined Abnormal ECG When compared with ECG of 12-JUN-2020 05:07, No significant change was found Confirmed by Kristofer Lucas ([id number]) on 06/13/2020 8:16:40 AM Referred By: REFERRED SELF Confirmed By:Kristofer Lucas
--- NOTE | 2020-06-13 14:26 | Hospitalist Progress Note ---
Date of Service June 13, 2020 Assessment & Plan (1) ACS (acute coronary syndrome): Impression: 49-year-old female presents to the ICU post heart cath with successful PCI x3 with DOUGLAS to RCA - STEMI -Continue ASA, Plavix Lipitor 40mg daily Coreg 12.5mg BID -Trend troponins - down to 0.8, peaked, no need to check further echo with EF 65-70% no wall motion abnormalities continue to titrate Coreg downgraded to PCU today, likely home tomorrow will discuss with Dr. Guerra (2) Diabetes: Reportedly the patient previously on basal glargine 30 to 35 units a day was switched to metformin by her outpatient provider at 750 twice daily. Me tformin is being held given her recent cardiovascular testing with intravenous contrast media. Subsequently we will reduce her previous dose of glargine down to 15 twice daily with insulin sliding scale and carbohydrate coverage monitor for hypoglycemia, no issues plan to resume Metformin on discharge follow up with her PCP (3) Tobacco use: She does continue to smoke currently, she tells me she quit for about 10 years in the past but then took it up again. She is willing to stop smoking again now that she had STEMI (4) Mild persistent asthma: Patient be maintained on inhaled medications at this point time (5) Dyslipidemia: Pravastatin is converted to atorvastatin for more potent statin (6) Hypertension: Previously she has been on diltiazem but she will be switched to a beta- bobby given her recent [facility] (7) Obstructive sleep apnea: Patient states that she was tested for sleep apnea and has not have a noninvasive positive pressure device at home is not willing to consider at this time (8) STEMI (ST elevation myocardial infarction): She is feeling well post intervention, no residual chest discomfort. We will continue with post intervention care Admission and Anticipated Discharge Date Admission Date: June 12, 2020 Subjective patient doing great, no chest pain, no dyspnea vitals and labs stable d/w Dr. Burciaga, will transfer out of ICU this morning d/w Dr. Guerra, will watch one more night, likely home tomorrow if she remains stable Review of Systems Review of Systems: All systems reviewed & are unremarkable except as noted in Subjective Physical Exam Constitutional: WD/WN, vitals as above Eyes: PERRL, conjunctivae normal, anicteric sclerae ENMT: external ear and nose normal, oropharynx normal Neck: trachea midline, no thyromegaly Respiratory: normal respiratory effort, lungs clear to auscultation Cardiovascular: RRR, no murmur, no edema Gastrointestinal (Abdomen): normal bowel sounds, soft, nontender, no hepatosplenomegaly Musculoskeletal: no cyanosis or clubbing, extremities motor strength 5/5 Skin: no rashes, warm and dry Neurologic: patellar DTR's 2+ bilat, sensation intact and PERRL, EOMI, accommodation nl, no face palsy, no dysarthria Psychiatric: A+Ox3, euthymic affect Lymphatic: no cervical or axillary lymphadenopathy Results & Data Results & Data ([facility]) Vital Signs (Past 12 Hours) Vital Signs Temp Pulse Pulse Resp BP BP BP 06/13/20 11:38 36.8 C 90 18 116/80 06/13/20 10:00 93 H 06/13/20 09:49 36.7 C 89 20 127/84 06/13/20 09:03 88 14 139/88 06/13/20 09:00 94 H 16 06/13/20 08:03 88 19 136/87 06/13/20 08:00 89 18 06/13/20 07:03 36.7 C 80 18 140/80 06/13/20 07:00 83 22 06/13/20 05:03 70 19 123/101 H 06/13/20 04:19 91 H 23 154/107 H 06/13/20 03:03 92 H 22 126/80 Pulse Ox 06/13/20 11:38 93 06/13/20 10:00 06/13/20 09:49 96 06/13/20 09:03 96 06/13/20 09:00 94 06/13/20 08:03 94 06/13/20 08:00 94 06/13/20 07:03 95 06/13/20 07:00 96 06/13/20 05:03 92 06/13/20 04:19 94 06/13/20 03:03 91 Laboratory Results Laboratory Results - last 24 hr 06/13/20 06/13/20 06/13/20 04:21 04:21 04:21 WBC 15.08 H RBC 4.86 Hgb 15.1 Hct 44.0 MCV 90.5 MCH 31.1 MCHC 34.3 RDW Std Deviation 45.4 RDW Coeff of David 13.8 Plt Count 345 MPV 9.8 Immature Gran % (Auto) 0.7 Neut % (Auto) 66.0 Lymph % (Auto) 22.6 Zavala % (Auto) 9.6 Eos % (Auto) 1.0 Baso % (Auto) 0.1 Neut # (Auto) 9.95 H Lymph # (Auto) 3.41 H Zavala # (Auto) 1.45 H Eos # (Auto) 0.15 Baso # (Auto) 0.02 Immature Gran # (Auto) 0.10 H Sodium 144 Potassium 3.5 Chloride 109 H Carbon Dioxide 26 Anion Gap 9.0 BUN 15 Creatinine 0.72 Est Cr Clr Drug Dosing 88.5 Est GFR ( Amer) 113.2 Est GFR (Non-Af Amer) 97.7 BUN/Creatinine Ratio 20.9 H Glucose 100 H POC Glucose Estimat Average Glucose 123 Hemoglobin A1c 5.9 H Calcium 9.0 Magnesium 2.0 Troponin I 1.360 H* TSH 1.250 06/13/20 06/13/20 06/13/20 07:23 12:55 14:58 WBC RBC Hgb Hct MCV MCH MCHC RDW Std Deviation RDW Coeff of David Plt Count MPV Immature Gran % (Auto) Neut % (Auto) Lymph % (Auto) Zavala % (Auto) Eos % (Auto) Baso % (Auto) Neut # (Auto) Lymph # (Auto) Zavala # (Auto) Eos # (Auto) Baso # (Auto) Immature Gran # (Auto) Sodium Potassium Chloride Carbon Dioxide Anion Gap BUN Creatinine Est Cr Clr Drug Dosing Est GFR ( Amer) Est GFR (Non-Af Amer) BUN/Creatinine Ratio Glucose POC Glucose 99 121 H Estimat Average Glucose Hemoglobin A1c Calcium Magnesium Troponin I 0.826 H* TSH 06/13/20 06/13/20 16:26 20:01 WBC RBC Hgb Hct MCV MCH MCHC RDW Std Deviation RDW Coeff of David Plt Count MPV Immature Gran % (Auto) Neut % (Auto) Lymph % (Auto) Zavala % (Auto) Eos % (Auto) Baso % (Auto) Neut # (Auto) Lymph # (Auto) Zavala # (Auto) Eos # (Auto) Baso # (Auto) Immature Gran # (Auto) Sodium Potassium Chloride Carbon Dioxide Anion Gap BUN Creatinine Est Cr Clr Drug Dosing Est GFR ( Amer) Est GFR (Non-Af Amer) BUN/Creatinine Ratio Glucose POC Glucose 121 H 105 H Estimat Average Glucose Hemoglobin A1c Calcium Magnesium Troponin I TSH Medications Administered Current Inpatient Medications Acetaminophen (Acetaminophen 500 Mg Tab) 1,000 mg PO Q8H PRN PRN Reason: Pain or Fever Stop: 07/12/20 07:33 Al Hydrox/Mg Hydrox/Simethicone (Aluminum/Magnesium Susp 30 Ml Udc) 15 ml PO Q4H PRN PRN Reason: Dyspepsia Stop: 07/12/20 07:33 Aspirin (Aspirin 81 Mg Ectab) 81 mg PO QAM [facility] Stop: 07/12/20 08:59 Last Admin: 06/13/20 07:26 Dose: 81 mg Documented by: Atorvastatin Calcium (Atorvastatin 40 Mg Tab) 40 mg PO QAM [facility] Stop: 07/12/20 08:59 Last Admin: 06/13/20 07:27 Dose: 40 mg Documented by: Benzonatate (Benzonatate 100 Mg Capsule) 100 mg PO TID [facility] Stop: 07/13/20 08:59 Last Admin: 06/13/20 20:36 Dose: 100 mg Documented by: Carvedilol (Carvedilol 12.5 Mg Tab) 12.5 mg PO BID [facility] Stop: 07/13/20 20:59 Last Admin: 06/13/20 20:36 Dose: 12.5 mg Documented by: Clopidogrel Bisulfate (Clopidogrel Bisulfate 75 Mg Tab) 75 mg PO QAM [facility] Stop: 07/13/20 08:59 Last Admin: 06/13/20 07:27 Dose: 75 mg Documented by: Cyanocobalamin (Cyanocobalamin 500 Mcg Tablet (Vitamin B-12)) 1,000 mcg PO DAILY [facility] Stop: 07/12/20 08:59 Last Admin: 06/13/20 07:26 Dose: 1,000 mcg Documented by: Dextrose (Dextrose 50% 50 Ml Syringe) 25 - 50 ml IV UD PRN; Protocol PRN Reason: Hypoglycemia Protocol Stop: 07/12/20 07:31 Famotidine (Famotidine 20 Mg Tab) 20 mg PO BID [facility] Stop: 07/12/20 08:59 Last Admin: 06/13/20 20:37 Dose: 20 mg Documented by: Fexofenadine HCl (Fexofenadine 60 Mg Tab) 60 mg PO BID [facility] Stop: 07/12/20 20:59 Last Admin: 06/13/20 20:36 Dose: 60 mg Documented by: Fluticasone Propionate (Fluticasone Propionate Na Spr 16 Gm Btl) 2 sprays NA DAILY ANGIE Stop: 07/12/20 08:59 Last Admin: 06/13/20 07:38 Dose: 2 sprays Documented by: Fluticasone/Vilanterol (Fluticasone/Vilanterol 100/25mcg 14 Puffs/Inhaler) 1 puffs INH DAILY ANGIE Stop: 07/12/20 08:59 Last Admin: 06/13/20 07:25 Dose: 1 puffs Documented by: Glucagon (Glucagon For Inj 1 Mg Vial) 1 mg SQ UD PRN; Protocol PRN Reason: Hypoglycemia Protocol Stop: 07/12/20 07:31 Glucose (Glucose 10 Tabs/Tube) 4 - 8 tabs PO UD PRN; Protocol PRN Reason: Hypoglycemia Protocol Stop: 07/12/20 07:31 Glucose (Glucose 40% Gel 15 Gm Tube) 15 - 30 gm PO UD PRN; Protocol PRN Reason: Hypoglycemia Protocol Stop: 07/12/20 07:31 Insulin Aspart (Insulin Aspart 100 Units/Ml 3 Ml Pen) 0 units SC ACHS ANGIE Stop: 07/12/20 11:29 Last Admin: 06/13/20 21:53 Dose: Not Given Documented by: Insulin Glargine (Insulin Glargine Solostar 100 Units/Ml 3 Ml Pen) 15 units SC DAILY ANGIE Stop: 07/13/20 08:59 Last Admin: 06/13/20 07:27 Dose: 15 units Documented by: Levothyroxine Sodium (Levothyroxine Sodium 75 Mcg Tablet) 93.75 mcg PO DAILYBB ANGIE Stop: 07/12/20 06:29 Last Admin: 06/13/20 05:28 Dose: 93.75 mcg Documented by: Losartan Potassium (Losartan Potassium 25 Mg Tab) 12.5 mg PO QAM ANGIE Stop: 07/14/20 08:59 Miscellaneous (Carbohydrates For Hypoglycemia ) 15 - 30 gm PO UD PRN PRN Reason: Hypoglycemia Protocol Stop: 07/12/20 07:31 Montelukast Sodium (Montelukast Sodium 10 Mg Tablet) 10 mg PO DAILY ANGIE Stop: 07/12/20 08:59 Last Admin: 06/13/20 07:26 Dose: 10 mg Documented by: Nitroglycerin (Nitroglycerin Sl 0.4 Mg/Tab Tab) 0.4 mg SL UD PRN PRN Reason: Chest Pain Stop: 07/12/20 07:33 Ondansetron HCl (Ondansetron Inj 2 Mg/Ml 2 Ml Vial) 4 mg IV Q6H PRN PRN Reason: Nausea Stop: 07/12/20 07:33 Polyethylene Glycol (Polyethylene (Miralax) 17 Gm Pack) 17 gm PO DAILY PRN PRN Reason: Constipation Stop: 07/12/20 07:33 Potassium Chloride (Potassium Chloride 10 Meq Tabcr) 10 meq PO BID ANGIE Stop: 07/13/20 20:59 Last Admin: 06/13/20 20:37 Dose: 10 meq Documented by: PG Care Time/CCT Total # of Minutes Spent Total Time Spent with Patient: Total time spent is greater than 50% in coordination of care (as documented) at patient's floor/unit and/or counseling patient: Coding Level of Care Code 41250 Subseq Hosp Care Lvl 2 Diagnoses ACS (acute coronary syndrome) I24.9 Diabetes E11.9 Tobacco use Z72.0 Mild persistent asthma J45.30 Dyslipidemia E78.5 Hypertension I10 Hypertension type: essential hypertension Obstructive sleep apnea G47.33 STEMI (ST elevation myocardial infarction) I21.3 (1) Hypertension Hypertension type: essential hypertension Qualified Code(s): I10 - Essential (primary) hypertension
[2020-06-13] MEDS: BENZONATATE 100 MG CAPSULE PO SCH ×3 (15:00→20:36)
--- NOTE | 2020-06-13 18:50 | Cardiology Progress Note ---
Date of Service June 13, 2020 Assessment & Plan (1) STEMI (ST elevation myocardial infarction): --Post 3 DOUGLAS from distal RCA into PDA Minimal non-culprit artery disease 2. Preserved LV function 3. Hypertension 4. Dyslipidemia 5. Prediabetes No recurrent chest pain. Hemodynamically and electrically stable No access site complication Continue DAPT with aspirin, clopidogrel for at least 1 year Increase carvedilol to 12.5 twice daily Start low-dose losartan Continue high intensity statin Smoking cessation Continue to monitor on telemetry today. Likely home tomorrow. Admission and Anticipated Discharge Date Admission Date: June 12, 2020 Subjective Feeling well today. No chest pain since admission. No other complaints. Telemetry reviewedno events Review of Systems Review of Systems: All systems reviewed & are unremarkable except as noted in HPI & below Physical Exam Physical Exam: General: Comfortable, no acute distress HEENT: Sclerae anicteric, mucous membranes moist Lungs: Clear to auscultation bilaterally, no rhonchi or wheezes Cardiac: Regular rate and rhythm, no murmurs. No JVD. Abdomen: Soft, nontender, nondistended, positive bowel sounds. Extremities: Warm, well perfused, no edema. Right radial artery access site with no ecchymosis, hematoma. Distal pulse and sensation intact. Skin: No rashes or lesions. Neuro: Nonfocal Psych: Alert orient x3, normal affect and mood Results & Data ([facility]) Vital Signs (Past 12 Hours) Vital Signs Temp Pulse Pulse Resp BP BP BP 06/13/20 16:19 101 H 06/13/20 15:45 97.7 F 93 H 18 129/87 06/13/20 11:38 98.2 F 90 18 116/80 06/13/20 10:00 93 H 06/13/20 09:49 98.1 F 89 20 127/84 06/13/20 09:03 88 14 139/88 06/13/20 09:00 94 H 16 06/13/20 08:03 88 19 136/87 06/13/20 08:00 89 18 06/13/20 07:03 98.1 F 80 18 140/80 06/13/20 07:00 83 22 Pulse Ox 06/13/20 16:19 06/13/20 15:45 92 06/13/20 11:38 93 06/13/20 10:00 06/13/20 09:49 96 09/28/20 09:03 96 06/13/20 09:00 94 06/13/20 08:03 94 06/13/20 08:00 94 06/13/20 07:03 95 06/13/20 07:00 96 PG Care Time/CCT Total # of Minutes Spent Total Time Spent with Patient: Total time spent is greater than 50% in coordination of care (as documented) at patient's floor/unit and/or counseling patient: Coding Level of Care Code 72115 Subseq Hosp Care Lvl 3 Diagnoses STEMI (ST elevation myocardial infarction) I21.3
[2020-06-13] MEDS: POTASSIUM CHLORIDE 10 MEQ TABCR PO SCH (20:37)
[2020-06-13] MEDS ORDERED: carvediloL 12.5 MG TAB PO SCH (21:00)
--- NOTE | 2020-06-14 06:01 | Electrocardiogram Report ---
Test Reason : Blood Pressure : / mmHG Vent. Rate : 086 BPM Atrial Rate : 086 BPM P-R Int : 134 ms QRS Dur : 076 ms QT Int : 378 ms P-R-T Axes : 062 -39 041 degrees QTc Int : 452 ms Normal sinus rhythm Left axis deviation Nonspecific ST abnormality Abnormal ECG When compared with ECG of 12-JUN-2020 07:09, No significant change was found Confirmed by Qamar Chavira ([id number]) on 06/14/2020 6:01:35 AM Referred By: REFERRED SELF Confirmed By:Qamar Chavira
[2020-06-14 06:04] LABS: Basophils # (auto) 0.02 K/uL (0-0.2); Basophils % (auto) 0.2 %; Eosinophils # (auto) 0.16 K/uL (0-0.5); Eosinophils % (auto) 1.3 %; Hematocrit (blood only) 43.7 % (37-47); Hemoglobin 15.1 g/dL (12.0-16.0); Immature Granulocytes # (auto) 0.08 K/uL (0.00-0.02); Immature Granulocytes % (auto) 0.7 %; Lymphocytes # (auto) 2.93 K/uL (1.2-3.4); Lymphocytes % (auto) 24.5 %; Mean Corpuscular Hemoglobin 31.1 pg (25-34); Mean Corpuscular Hgb Conc 34.6 g/dL (32-36); Mean Corpuscular Volume 89.9 fL (80-100); Monocytes # (auto) 1.35 K/uL (0.11-0.59); Monocytes % (auto) 11.3 %; Neutrophils # (auto) 7.44 K/uL (1.4-6.5); Platelet Count 368 K/uL (130-400); RDW Coefficient of Variation 13.4 % (11.5-14.5); Red Blood Count 4.86 M/uL (4.2-5.4); White Blood Count 11.98 K/uL (4.8-10.8)
[2020-06-14] MEDS: LEVOTHYROXINE SODIUM 75 MCG TABLET PO SCH (06:30)
[2020-06-14 06:37] LABS: BUN Creatinine Ratio 23.2 (10-20); Calcium 9.9 mg/dl (8.5-10.1); Creatinine Clr Calc Pharmacy 94.9 ml/min; Est GFR (African American) 119.4; Magnesium 2.2 mg/dl (1.8-2.4); Potassium 3.6 mmol/L (3.5-5.1)
[2020-06-14] MEDS: CLOPIDOGREL BISULFATE 75 MG TAB PO SCH (08:37)
[2020-06-14] MEDS: ASPIRIN 81 MG ECTAB PO SCH (08:38)
[2020-06-14] MEDS: POTASSIUM CHLORIDE 10 MEQ TABCR PO SCH (08:39)
[2020-06-14] MEDS: CYANOCOBALAMIN 500 MCG TABLET (VITAMIN B-12) PO SCH (08:39)
[2020-06-14] MEDS: FLUTICASONE PROPIONATE NA SPR 16 GM BTL SCH (08:39)
[2020-06-14] MEDS: FLUTICASONE/VILANTEROL 100/25MCG 14 PUFFS/INHALER INH SCH (08:40)
[2020-06-14] MEDS: FEXOFENADINE 60 MG TAB PO SCH (08:40)
[2020-06-14] MEDS: MONTELUKAST SODIUM 10 MG TABLET PO SCH (08:41)
[2020-06-14] MEDS: FAMOTIDINE 20 MG TAB PO SCH (08:42)
[2020-06-14] MEDS: ATORVASTATIN 40 MG TAB PO SCH (08:44)
[2020-06-14] MEDS: BENZONATATE 100 MG CAPSULE PO SCH (08:50)
[2020-06-14] MEDS: INSULIN GLARGINE SOLOSTAR 100 UNITS/ML 3 ML PEN SC SCH (08:51)
[2020-06-14] MEDS: INSULIN ASPART 100 UNITS/ML 3 ML PEN SC SCH (08:52)
[2020-06-14] MEDS ORDERED: LOSARTAN POTASSIUM 25 MG TAB PO SCH (09:00)
[2020-06-14] MEDS ORDERED: carvediloL 25 MG TAB PO SCH (09:00)
--- NOTE | 2020-06-14 10:37 | Discharge Summary ---
Date of Service June 14, 2020 Admission HPI Per Admitting Provider Was called to evaluate this patient after she had already been to the heart catheterization lab and had drug-eluting stent placed in right coronary artery for ST elevation CT seen in the emergency department. This49 yr old female with history DMII, HTN, DLP, Tobacco use, asthma and father with CAD history arrives with left chest pain to shoulder, neck and back. This was second occurrence in last 24 hours. EKG on arrival with ischemic changes with ST changes inferiorly. Pain initially improved was given aspirin however then pain worsened did not resolve with 3 nitroglycerin.. Patient was taken to [facility] and a drug-eluting stent placed in her right coronary artery by Dr. Collins Cambpell. In the ICU after the procedure she was pain-free she was complaining of discomfort in her wrist where the pressure band was in place she was demanding her Rebecca-D for allergies Principal Diagnosis STEMI Discharge Exam Constitutional WD/WN, vitals as above Eyes PERRL, conjunctivae normal, anicteric sclerae ENMT external ear and nose normal, oropharynx normal Neck trachea midline, no thyromegaly Respiratory normal respiratory effort, lungs clear to auscultation Cardiovascular RRR, no murmur, no edema Gastrointestinal (Abdomen) normal bowel sounds, soft, nontender, no hepatosplenomegaly Musculoskeletal no cyanosis or clubbing, extremities motor strength 5/5 Skin no rashes, warm and dry Neurologic patellar DTR's 2+ bilat, sensation intact and PERRL, EOMI, accommodation nl, no face palsy, no dysarthria Psychiatric A+Ox3, euthymic affect Lymphatic no cervical or axillary lymphadenopathy Discharge Data Allergies Allergy/AdvReac Type Severity Reaction Status Date / Time diphenhydramine Allergy Intermediate SWELLING Verified 06/12/20 04:50 Penicillins Allergy Intermediate SWELLING Verified 06/12/20 04:50 aspirin AdvReac Intermediate NOSEBLEEDS Verified 06/12/20 04:50 METALS Allergy Intermediate WELTS, Uncoded 06/12/20 04:50 ITCHING ON SKIN Consultations 06/12/20 05:24 ED Decision to Admit Stat 06/12/20 07:20 Consult Case Management - Discharge Planning Routine Consult Vascular Technician Routine 06/12/20 07:34 Consult Cardiology Routine Procedures Performed Operation Date: 06/12/20 05:20 Actual Procedures s Cineradiography w/Routine Exam - Jose E Campbell MD s Cath, Left with Cors and Vent - Jose E Campbell MD p Aspiration/PCI w/DOUGLAS for Stemi - Jose E Campbell MD Ordered Studies 06/12/20 05:23 CL Cath Imgs for PACS use only Stat Hospital Course (1) STEMI (ST elevation myocardial infarction): She is feeling well post intervention, no residual chest discomfort. We will continue with post intervention care see below for plan (2) ACS (acute coronary syndrome): Impression: 49-year-old female presents to the ICU post heart cath with successful PCI x3 with DOUGLAS to RCA - STEMI -Continue ASA 81mg daily, Plavix 75mg daily, will need DAPT for a year, then stop Plavix Lipitor 40mg daily, this replaces pravastatin Coreg 25mg BID, this is new medication, replaces Diltiazem -Trend troponins - down to 0.8, peaked, no need to check further echo with EF 65-70% no wall motion abnormalities discharge to home on aspirin ad Plavix, Lipitor, Coreg 25mg BID, Losartan 12.5mg daily gave script for Nitro SL PRN she knows that she needs to quit smoking continue Metformin for diabetes management and follow low carbohydrate diet (3) Diabetes: Reportedly the patient previously on basal glargine 30 to 35 units a day was switched to metformin by her outpatient provider at 750 twice daily. Metformin is being held given her recent cardiovascular testing with intravenous contrast media. Subsequently we will reduce her previous dose of glargine down to 15 twice daily with insulin sliding scale and carbohydrate coverage monitor for hypoglycemia, no issues plan to resume Metformin on discharge, follow low carb diet follow up with her PCP (4) Tobacco use: She does continue to smoke currently, she tells me she quit for about 10 years in the past but then took it up again. She is willing to stop smoking again now that she had STEMI (5) Mild persistent asthma: Patient be maintained on inhaled medications at this point time (6) Dyslipidemia: Pravastatin is converted to atorvastatin for more potent statin (7) Hypertension: Previously she has been on diltiazem but she will be switched to a beta- bobby given her recent CT BP well controlled on Coreg 25mg BID and Losartan 12.5mg daily stopped Diltiazem and HCTZ could titrate up on Losartan if BP elevated in clinic (8) Obstructive sleep apnea: Patient states that she was tested for sleep apnea and has not have a noninvasive positive pressure device at home is not willing to consider at this time (9) GERD (gastroesophageal reflux disease): please note, previously on omeprazole this will be changed to pantoprazole due to interaction with Plavix Total Time Total Time Spent Total Time Spent (In Minutes): 40 Total Time Includes: Examination of the Patient (20 minute discussion about medications, plan), Discharge Planning, Medication Reconciliation and Communication With Other Providers (Dr. Guerra) Discharge Plan Discharge Items Patient Disposition: Home - Self-Care Reason For Visit: STEMI S/P STENT Discharge Diagnosis: ST elevation CT (heart attack) Condition on Discharge: Good Goals: medical management of coronary disease slowly increase activity Activity: Per Instructions section Lifting: None Bathing: No limitations Sexual Activity: Wait until after follow-up appointment Exercise/Sports: Wait until after follow-up appointment Driving/Machine Use: Resume 1 day after discharge Weightbearing: Full weightbearing Non-emergency contact: Primary Care Provider and [facility]er [facility] Call non-emergency contact if: you have any medication questions and your symptoms worsen Follow-up/Referrals: Sachin Guerra MD [Physician] - 06/23/20 9:00 am (2-3 weeks) Austin Preciado MD [Primary Care Provider] - 06/16/20 8:00 am (one week) Diet: Heart Healthy Addtl Attending Provider Instructions: Medications: numerous changes and new medications, see below - CARVEDILOL: 25mg twice a day, this controls heart rate as well as blood pressure, recommended with heart attack to help heart function - LOSARTAN: 12.5mg daily, blood pressure control, protects both heart and kidneys - PLAVIX: 75mg daily, will need to take for one year with aspirin, will stop after a year but do not stop until cardiology instructs you to stop - ASPIRIN: 81mg daily, can obtain over the counter - NITRO: take as needed for chest pain/pressure, can take every 15 minutes as needed, max doses of 3 - ATORVASTATIN: this replaces pravastatin, more intense statin medication to help stabilize coronary plaque, proven to prevent future heart attacks - PANTOPRAZOLE: replaces omeprazole since it is contra-indicated with Plavix Recommend that if you need to take Naproxen, you need to take WITH FOOD monitor for any epigastric pain or dark stools as taking naproxen, aspirin and Plavix will increase risk of peptic ulcers Recommend that you to not take sumatriptan with your coronary disease You cannot take omeprazole due to interaction with Plavix, you can continue Pepcid and I will prescribe pantoprazole Diltiazem and hydrochlorothiazide have been stopped as you are now on carvedilol and losartan STEMI: acute heart attack, treated with emergent left heart cath, drug eluting stents to right coronary artery echocardiogram shows that heart function is well preserved, no evidence of damage from heart attack all of the above medication changes are made to keep stents open, prevent future heart attacks, preserve heart function take medications as prescribed continue to focus on good diabetes control, resume your Metformin, follow with Dr. Preciado to make sure it is well managed you need to continue to abstain from smoking cigarettes as this will only increase your risk of heart attack you can perform light activity such as walking, would avoid strenuous exercise until cleared by cardiology, follow up in 2-3 weeks Pending Studies at Discharge: No Stand-Alone Forms: [facility], Smoking Cessation Medications and DC Order Prescriptions: New clopidogrel 75 mg Tablet 75 mg PO QAM 30 Days Qty: 30 RF: 3 atorvastatin 40 mg Tablet 40 mg PO QAM 30 Days Qty: 30 RF: 3 carvedilol 25 mg Tablet 25 mg PO BID 30 Days Qty: 60 RF: 3 losartan 25 mg Tablet 12.5 mg PO QAM 30 Days Qty: 15 RF: 3 nitroglycerin [Nitrostat] 0.4 mg Tablet, Sublingual 0.4 mg sublingual UD PRN (Reason: chest pain) 30 Days Qty: 60 RF: 1 aspirin 81 mg Tablet,Delayed Release (Dr/Ec) 81 mg PO QAM 30 Days Qty: 30 RF: 3 pantoprazole 40 mg tablet,delayed release (DR/EC) 40 mg PO DAILY Qty: 30 RF: 3 Continued Symbicort 80-4.5 mcg/actuation HFA aerosol inhaler 2 puffs INH BID Qty: 3 RF: 5 famotidine 20 mg tablet 20 mg PO BID 30 Days Qty: 60 RF: 11 coQ10 (ubiquinol) 100 mg capsule 100 mg PO DAILY RF: 0 levothyroxine 75 mcg tablet See Rx Instructions .ROUTE .COMPLEX RF: 0 montelukast 10 mg tablet 10 mg PO DAILY RF: 0 potassium chloride 20 mEq tablet extended release 20 meq PO DAILY RF: 0 azelastine 137 mcg (0.1 %) aerosol,spray 2 sprays intranasal BID RF: 0 mometasone 50 mcg/actuation spray,non-aerosol 2 sprays intranasal DAILY RF: 0 albuterol sulfate 90 mcg/actuation HFA aerosol inhaler 2 puffs inhalation Q4H PRN (Reason: shortness of breath or wheezing) Qty: 1 RF: 0 adapalene 0.1 % gel 1 appln topical DAILY RF: 0 cyanocobalamin (vitamin B-12) 1,000 mcg capsule 1,000 mcg PO DAILY RF: 0 fexofenadine-pseudoephedrine 60-120 mg tablet extended release 12 hr 1 tab PO BID RF: 0 guaifenesin [Mucinex] 600 mg tablet extended release 12hr 600 mg PO BID PRN (Reason: Nasal Congestion) RF: 0 promethazine 25 mg tablet 25 mg PO DIRECTED PRN (Reason: Migraine Headache) RF: 0 nicotine 14 mg/24 hr patch 24 hour 1 patch TD DAILY Qty: 28 RF: 0 naproxen sodium 550 mg tablet 550 mg PO BID RF: 0 metformin 750 mg tablet extended release 24 hr 750 mg PO BID RF: 0 Krill Oil ([place] 3 and 6) 1000-130(40-80) mg Capsule 1 cap PO DAILY RF: 0 Discontinued omeprazole 20 mg capsule,delayed release(DR/EC) 20 mg PO DAILY Qty: 60 RF: 11 diltiazem HCl 240 mg capsule,extended release 24hr 240 mg PO BID Qty: 60 RF: 0 hydrochlorothiazide 25 mg tablet 25 mg PO DAILY Qty: 90 RF: 0 pravastatin 40 mg tablet 40 mg PO DAILY RF: 0 sumatriptan succinate 100 mg tablet 100 mg PO DIRECTED PRN (Reason: Migraine Headache) RF: 0 Discharge Orders: Discharge Order (Routine); Ordered 06/14/20 Ordered By: Michel Brooks Admission Data Admit Date/Time: 06/12/20 07:20 Attending Provider: Michel Brooks Admit Provider: Todd Landry Primary Care Provider: Austin Preciado Other Providers: Jose E Campbell ; Chidi Burciaga ; Sachin Guerra Other Interventions: Discharge Summary Assessment (RN) Last Done: 06/14/20 11:02 Coding Level of Care Code D/C Day Management >30 mins Diagnoses STEMI (ST elevation myocardial infarction) I21.3 ACS (acute coronary syndrome) I24.9 Diabetes E11.9 Tobacco use Z72.0 Mild persistent asthma J45.30 Dyslipidemia E78.5 Hypertension I10 Hypertension type: essential hypertension Obstructive sleep apnea G47.33 GERD (gastroesophageal reflux disease) K21.9
--- NOTE | 2020-06-14 17:42 | Cardiology Progress Note ---
Date of Service June 14, 2020 Assessment & Plan (1) STEMI (ST elevation myocardial infarction): --Post 3 DOUGLAS from distal RCA into PDA Minimal non-culprit artery disease 2. Preserved LV function 3. Hypertension 4. Dyslipidemia 5. Prediabetes No recurrent chest pain. Hemodynamically and electrically stable No access site complications From a cardiac standpoint okay with discharge today Continue DAPT with aspirin, clopidogrel for at least 1 year Home on increased carvedilol, losartan and high-dose statin Smoking cessation Follow-up with me in 2 weeks. Admission and Anticipated Discharge Date Admission Date: June 12, 2020 Subjective Feeling well today. No chest pain. No other new concerns. Telemetry reviewedno events Review of Systems Review of Systems: All systems reviewed & are unremarkable except as noted in HPI & below Physical Exam Physical Exam: General: Comfortable, no acute distress HEENT: Sclerae anicteric, mucous membranes moist Lungs: Clear to auscultation bilaterally, no rhonchi or wheezes Cardiac: Regular rate and rhythm, no murmurs. No JVD. Abdomen: Soft, nontender, nondistended, positive bowel sounds. Extremities: Warm, well perfused, no edema. Right radial artery access site with no ecchymosis, hematoma. Distal pulse and sensation intact. Skin: No rashes or lesions. Neuro: Nonfocal Psych: Alert orient x3, normal affect and mood Results & Data ([facility]) Vital Signs (Past 12 Hours) Vital Signs Temp Pulse Pulse Resp BP BP Pulse Ox 06/14/20 11:02 98.1 F 117 H 20 129/86 130/84 97 06/14/20 08:49 117 H 129/86 06/14/20 08:00 108 H 06/14/20 07:53 98.1 F 103 H 20 130/84 97 PG Care Time/CCT Total # of Minutes Spent Total Time Spent with Patient: Total time spent is greater than 50% in coordinat ion of care (as documented) at patient's floor/unit and/or counseling patient: Coding Level of Care Code 46237 Subseq Hosp Care Lvl 3 Diagnoses STEMI (ST elevation myocardial infarction) I21.3
--- NOTE | 2020-06-14 22:43 | Electrocardiogram Report ---
Test Reason : Blood Pressure : / mmHG Vent. Rate : 111 BPM Atrial Rate : 111 BPM P-R Int : 136 ms QRS Dur : 066 ms QT Int : 350 ms P-R-T Axes : 066 -43 009 degrees QTc Int : 476 ms Sinus tachycardia Left axis deviation Inferior infarct , age undetermined Abnormal ECG When compared with ECG of 13-JUN-2020 07:46, No significant change was found Confirmed by Qamar Chavira ([id number]) on 06/14/2020 10:43:01 PM Referred By: REFERRED SELF Confirmed By:Qamar Chavira
== END 2020-06-14 12:00 | disposition home or self-care (01) | DRG 247 ==
LOC: ED 03:58 → CC 05:35 → SUATTDRO 07:20 → 1E 07:20 → 2S 06-13 09:38

== ENCOUNTER 2022-08-07 12:56 | Observation (INO) ==
[2022-08-07] MEDS ORDERED: SODIUM CHLORIDE 0.9% 1000ML 1,000 ML IV ONE ×2 (13:32→13:56)
--- NOTE | 2022-08-07 13:47 | Emergency Department Note ---
Impression & Plan Acute GI bleeding, Acute hypotension ED Provider Note NAME: FELICITAS MILLER AGE: 51 SEX: F : 1970 ARRIVES VIA: Walk-In INFORMANT: Patient ED PROVIDER(S): Wei Tejeda DO CHIEF COMPLAINT: BRBPR HPI: Patient is a 51-year-old female with a past medical history of CAD, GERD, diabetes, dyslipidemia and hypertension that presents the ER for bright red blood per rectum. This started last night into this morning. She had a colonoscopy on Saturday with Dr. Gonsalez from [place] and had 16 polyps removed. She admits to crampy abdominal pain. She is having no every 15 to 30 minutes. She notes it stopped for 1 to 2 hours this morning then picked back up again. She called gastroenterology and they referred her in. ROS: See above HPI for pertinent positives & negatives. A total of 10 systems reviewed and were otherwise negative. PAST MEDICAL HISTORY:See Below PAST SURGICAL HISTORY:See Below FAMILY HISTORY:See Below SOCIAL HISTORY:See Below HOME MEDICATIONS:See Below ALLERGIES:See Below VITALS:See Below PHYSICAL EXAMINATION: GENERAL: Sitting up in bed, alert, well appearing, well nourished, no distress, non-toxic EYE EXAM: normal conjunctiva. OROPHARYNX: no exudate, no erythema, lips, buccal mucosa, and tongue normal and mucous membranes are moist NECK: supple, no nuchal rigidity, no adenopathy, non-tender LUNGS: Clear to auscultation. Normal chest wall mechanics HEART: no murmurs, S1 normal and S2 normal ABDOMEN: abdomen soft, non-tender, normo-active bowel sounds, no masses, no rebound or guarding. UPPER EXTREMITIES: upper extremities are grossly normal. LOWER EXTREMITIES: No pitting edema. NEURO EXAM: Normal sensorium, cranial nerves II-XII grossly intact, normal speech, no gross weakness of arms, no gross weakness of legs. MEDICAL DECISION MAKING: Patient is a 55-year-old female who presents the ER for bright red blood per rectum status post colonoscopy. IV was established blood work is obtained. Labs show leukocytosis 14,000. Hemoglobin 18 which I favor secondary to dehydration. INR unremarkable. BMP with slightly elevated BUN at 22. LFTs bilirubin and lipase is unremarkable. Troponin was negative. COVID was negative. Patient was typed and screened. CT abdomen pelvis not performed as she has very minimal to no abdominal pain. Discussed with Dr. Guadarrama who was covering for her service who recommended admission and bowel prep for scope in the morning. Patient was updated in regards to these findings. Discussed with the hospitalist for further evaluation. Patient was given IV fluids while in the ER. Triage Nursing notes reviewed. Limited review of prior medical records performed Vital Signs: reviewed and remarkable for Tachy and hypotension Differential diagnosis: Differential diagnosis includes etiologies such as diverticulitis, diverticulosis, AVM, coagulopathy, colitis, inflammatory bowel disease, malignancy, Naomy-Beard tear, esophagitis, peptic ulcer disease, variceal bleed, gastritis, epistaxis, fissure, hemorrhoids, as well as others were entertained. ER treatment provided: See below Diagnostics interpreted by me: ECG: Sinus tachycardia rate 107 Normal axis No PVCs QTC 448 Cardiac Monitoring: An order was placed for continuous cardiac monitoring. The monitor shows a rate of 102 with sinus rhythm. Laboratory studies: As stated above and show below. Imaging studies: See below Consultation(s): Discussed with Dr. Guadarrama who recommended admission for colonoscopy tomorrow with bowel prep. Discussed with not any hospitalist Dr. Orozco for further evaluation Procedures: none Critical Care: None Past Med/Surg History Medical History Abnormal finding on mammography Allergic rhinitis due to animal dander Allergic rhinitis due to pollen CAD (coronary artery disease) Chronic hoarseness Diabetes Dyslipidemia Eustachian tube dysfunction Extrinsic asthma GERD (gastroesophageal reflux disease) Hypertension Laryngopharyngeal reflux disease Lateral femoral cutaneous neuropathy Lump or mass in breast Mild persistent asthma Obstructive sleep apnea Postoperative pain Sinus tachycardia Tobacco abuse Surgical History H/O heart artery stent H/O total hysterectomy History of colposcopy History of cryosurgery Cervical History of dental surgery History of tooth extraction Status post hysteroscopic ablation of endometrium Family History Father Hypertension Cancer Cardiac disorder Heart disease Mother Asthma Allergies Sinusitis Hypertension Grandmother Uterine cancer Cervical cancer Uncle Asthma FHx: deafness or hearing loss Allergies Sinusitis Hypertension Cancer Cardiac disorder Grandfather Cardiac disorder Grandmother Cancer Social History Smoking Status: Current every day smoker Tobacco Type: Cigarettes Cigarettes Per Day: 20; Second Hand Exposure: No; Hx Alcohol Use: Yes Alcohol type: beer Hx Substance Use: No Preferred Language: Telugu Communication Ability: Effective Ceo & Founder Required: No Beliefs That Will Affect Care: None Current Living Situation: Spouse Feels Safe at Home: Yes Assistive Devices: None Allergies Allergies Allergy/AdvReac Type Severity Reaction Status Date / Time diphenhydramine Allergy Intermediate SWELLING Verified 01/04/22 09:13 Penicillins Allergy Intermediate SWELLING Verified 01/04/22 09:13 cashew nut Allergy FACIAL Unverified 01/04/22 09:13 SWELLING aspirin AdvReac Intermediate NOSEBLEEDS Verified 01/04/22 09:13 METALS Allergy Intermediate WELTS, Uncoded 01/04/22 09:13 ITCHING ON SKIN Home Meds Home Medications Medication Instructions Recorded Confirmed adapalene 0.1 % topical gel 1 appln topical DAILY 06/01/19 01/04/22 albuterol sulfate 90 mcg/actuation 2 puffs inhalation Q4H PRN 06/01/19 01/04/22 aerosol inhaler shortness of breath or wheezing #1 g azelastine 137 mcg (0.1 %) nasal 2 sprays intranasal BID 06/01/19 01/04/22 spray aerosol cyanocobalamin (vitamin B-12) 1,000 mcg PO DAILY 06/01/19 01/04/22 1,000 mcg capsule mometasone 50 mcg/actuation nasal 2 sprays intranasal DAILY 06/01/19 01/04/22 spray fexofenadine 60 mg-pseudoephedrine 1 tab PO BID 11/10/19 01/04/22 ER 120 mg tablet,ext.release,12 hr guaifenesin 600 mg tablet, 600 mg PO BID PRN Nasal Congestion 11/10/19 01/04/22 extended release 12 hr (Mucinex) levothyroxine 75 mcg tablet See Rx Instructions .Route .COMPLEX 11/10/19 montelukast 10 mg tablet 10 mg PO DAILY 11/10/19 01/04/22 potassium chloride 20 mEq 20 meq PO DAILY 11/10/19 01/04/22 tablet,extended release krill oil 1,000 mg-om3 130 mg-dha 1 cap PO DAILY 06/12/20 01/04/22 40 mg-epa 80 [id number] cap (Krill Oil ([place] 3 and 6)) naproxen sodium 550 mg tablet 550 mg PO BID 06/12/20 01/04/22 cholecalciferol (vitamin D3) 50 50 mcg PO DAILY 06/23/20 01/04/22 mcg (2,000 unit) capsule coQ10 (ubiquinol) 100 mg capsule 400 mg PO DAILY 09/27/20 01/04/22 benzonatate 200 mg capsule 200 mg PO TID 06/21/21 01/04/22 Previous Rx's Medication Instructions Recorded aspirin 81 mg tablet,delayed 81 mg PO QAM 30 days #30 tabs 06/14/20 release nitroglycerin 0.4 mg sublingual 0.4 mg sublingual UD PRN chest 06/14/20 tablet (Nitrostat) pain 30 days #60 tabs famotidine 20 mg tablet 20 mg PO BID 3 months #180 tabs 09/29/20 nicotine 7 mg/24 hr daily 1 patch transdermal Q24H #14 ea 04/21/21 transdermal patch estradiol 0.01% (0.1 mg/gram) 1 g vaginal 2XWK #42.5 grams 06/12/21 vaginal cream budesonide-formoterol HFA 80 2 puff inhalation BID #3 Inhalers 10/30/21 mcg-4.5 mcg/actuation aerosol inhaler (Symbicort) ezetimibe 10 mg tablet 10 mg PO DAILY #90 tabs 03/30/22 atorvastatin 80 mg tablet 80 mg PO DAILY #90 tabs 04/03/22 clopidogrel 75 mg tablet 75 mg PO QAM 90 days #90 tabs 04/03/22 losartan 25 mg tablet 12.5 mg PO QAM 90 days #45 tabs 04/30/22 carvedilol 25 mg tablet 25 mg PO BID #180 tabs 06/21/22 Results & Data (ED) Vital Signs Vital Signs - 24 hr 08/07/22 13:03 08/07/22 13:45 08/07/22 13:45 Temperature 36.7 C Temperature Source Temporal Artery Scan Pulse Rate 119 H Pulse Rate [Right Finger] 104 H Respiratory Rate 20 13 Respiratory Effort / Characteristics Non-Labored Respiratory Depth Normal Blood Pressure 113/75 Blood Pressure [Right Arm] 92/68 L Blood Pressure Mean 87 Blood Pressure Mean [Right Arm] 76 Blood Pressure Position Sitting Pulse Oximetry 96 98 98 Oxygen Delivery Method Room Air Room Air Room Air Sepsis Recent Fever Within 48 Hours No Sepsis New/Unexplained Change in Mental Status No Sepsis Action Taken by Nursing No Action Required 08/07/22 15:02 Temperature Temperature Source Pulse Rate Pulse Rate [Right Finger] 86 Respiratory Rate Respiratory Effort / Characteristics Respiratory Depth Blood Pressure Blood Pressure [Right Arm] 106/67 Blood Pressure Mean Blood Pressure Mean [Right Arm] 80 Blood Pressure Position Pulse Oximetry 97 Oxygen Delivery Method Room Air Sepsis Recent Fever Within 48 Hours Sepsis New/Unexplained Change in Mental Status Sepsis Action Taken by Nursing Laboratory Data Result diagrams: 08/07/22 13:40 08/07/22 14:14 Lab Results 08/07/22 08/07/22 08/07/22 Range/Units 13:40 13:40 13:40 WBC 14.77 H (4.8-10.8) K/ul RBC 5.64 H (3.93-5.22) M/uL Hgb 18.2 H (12.0-16.0) g/dl POC Hgb (12.0-16.0) g/dl Hct 51.9 H (34.1-44.9) % POC Hct (37-47) % MCV 92.0 (80.0-100.0) fL MCH 32.3 (25.0-34.0) pg MCHC 35.1 (32.0-36.0) g/dL RDW Std Deviation 42.5 (36.4-46.3) fL RDW Coeff of David 12.5 (11.5-14.5) % Plt Count 288 (130-400) K/uL MPV 10.4 (9.4-12.3) fL Immature Gran % (Auto) 0.5 % Neut % (Auto) 72.9 % Lymph % (Auto) 16.6 % [place] % (Auto) 9.3 % Eos % (Auto) 0.5 % Baso % (Auto) 0.2 % Neut # (Auto) 10.76 H (1.4-6.5) K/uL Lymph # (Auto) 2.45 (1.2-3.4) K/uL [place] # (Auto) 1.37 H (0.24-0.82) K/uL Eos # (Auto) 0.08 (0-0.50) K/uL Baso # (Auto) 0.03 (0-0.2) K/uL Immature Gran # (Auto) 0.08 H (0.00-0.02) K/uL PT Cancelled INR Cancelled APTT Cancelled PTT Ratio Cancelled POC Sodium (135-144) mmol/L Sodium Cancelled POC Potassium (3.3-5.0) mmol/L Potassium Cancelled POC Chloride (101-112) mmol/L Chloride Cancelled Carbon Dioxide Cancelled POC Total CO2 (24-31) mmol/L Anion Gap Cancelled POC Anion Gap (16-25) mmol/L POC BUN (7-18) mg/dl BUN Cancelled Creatinine Cancelled POC Creatinine (0.6-1.3) mg/dl Est Cr Clr Drug Dosing Cancelled Est GFR ( Amer) Cancelled Est GFR (Non-Af Amer) Cancelled BUN/Creatinine Ratio Cancelled Glucose Cancelled POC Glucose (other) (70-99) mg/dl Calcium Cancelled POC Ioniz Calcium Deven (1.12-1.32) mmol/l Total Bilirubin Cancelled AST Cancelled ALT Cancelled Alkaline Phosphatase Cancelled Troponin I High Sens Cancelled Total Protein Cancelled Albumin Cancelled Globulin Cancelled Albumin/Globulin Ratio Cancelled Lipase Cancelled SARS-CoV-2, RNA, NAAT (NEGATIVE) Blood Type Antibody Screen 08/07/22 08/07/22 08/07/22 Range/Units 13:46 13:51 14:14 WBC (4.8-10.8) K/ul RBC (3.93-5.22) M/uL Hgb (12.0-16.0) g/dl POC Hgb 18.4 H (12.0-16.0) g/dl Hct (34.1-44.9) % POC Hct 54 H (37-47) % MCV (80.0-100.0) fL MCH (25.0-34.0) pg MCHC (32.0-36.0) g/dL RDW Std Deviation (36.4-46.3) fL RDW Coeff of David (11.5-14.5) % Plt Count (130-400) K/uL MPV (9.4-12.3) fL Immature Gran % (Auto) % Neut % (Auto) % Lymph % (Auto) % [place] % (Auto) % Eos % (Auto) % Baso % (Auto) % Neut # (Auto) (1.4-6.5) K/uL Lymph # (Auto) (1.2-3.4) K/uL [place] # (Auto) (0.24-0.82) K/uL Eos # (Auto) (0-0.50) K/uL Baso # (Auto) (0-0.2) K/uL Immature Gran # (Auto) (0.00-0.02) K/uL PT INR APTT PTT Ratio POC Sodium 138 (135-144) mmol/L Sodium POC Potassium 4.9 (3.3-5.0) mmol/L Potassium POC Chloride 106 (101-112) mmol/L Chloride Carbon Dioxide POC Total CO2 25 (24-31) mmol/L Anion Gap POC Anion Gap 13.0 L (16-25) mmol/L POC BUN 22 H (7-18) mg/dl BUN Creatinine POC Creatinine 0.9 (0.6-1.3) mg/dl Est Cr Clr Drug Dosing Est GFR ( Amer) Est GFR (Non-Af Amer) BUN/Creatinine Ratio Glucose POC Glucose (other) 119 H (70-99) mg/dl Calcium POC Ioniz Calcium Deven 1.13 (1.12-1.32) mmol/l Total Bilirubin AST ALT Alkaline Phosphatase Troponin I High Sens Total Protein Albumin Globulin Albumin/Globulin Ratio Lipase SARS-CoV-2, RNA, NAAT NEGATIVE (NEGATIVE) Blood Type O Positive Antibody Screen NEGATIVE 08/07/22 08/07/22 Range/Units 14:14 14:14 WBC (4.8-10.8) K/ul RBC (3.93-5.22) M/uL Hgb (12.0-16.0) g/dl POC Hgb (12.0-16.0) g/dl Hct (34.1-44.9) % POC Hct (37-47) % MCV (80.0-100.0) fL MCH (25.0-34.0) pg MCHC (32.0-36.0) g/dL RDW Std Deviation (36.4-46.3) fL RDW Coeff of David (11.5-14.5) % Plt Count (130-400) K/uL MPV (9.4-12.3) fL Immature Gran % (Auto) % Neut % (Auto) % Lymph % (Auto) % [place] % (Auto) % Eos % (Auto) % Baso % (Auto) % Neut # (Auto) (1.4-6.5) K/uL Lymph # (Auto) (1.2-3.4) K/uL [place] # (Auto) (0.24-0.82) K/uL Eos # (Auto) (0-0.50) K/uL Baso # (Auto) (0-0.2) K/uL Immature Gran # (Auto) (0.00-0.02) K/uL PT 10.6 INR 1.0 APTT 25.7 PTT Ratio 0.9 POC Sodium (135-144) mmol/L Sodium 138 POC Potassium (3.3-5.0) mmol/L Potassium 4.6 POC Chloride (101-112) mmol/L Chloride 107 Carbon Dioxide 24 POC Total CO2 (24-31) mmol/L Anion Gap 7 POC Anion Gap (16-25) mmol/L POC BUN (7-18) mg/dl BUN 16 Creatinine 0.95 POC Creatinine (0.6-1.3) mg/dl Est Cr Clr Drug Dosing 64.7 Est GFR ( Amer) 79.8 Est GFR (Non-Af Amer) 68.9 BUN/Creatinine Ratio 16.8 Glucose 113 H POC Glucose (other) (70-99) mg/dl Calcium 9.2 POC Ioniz Calcium Deven (1.12-1.32) mmol/l Total Bilirubin 0.5 AST 15 ALT 19 Alkaline Phosphatase 75 Troponin I High Sens 3.9 Total Protein 6.4 Albumin 3.9 Globulin 2.5 Albumin/Globulin Ratio 1.6 Lipase 23 SARS-CoV-2, RNA, NAAT (NEGATIVE) Blood Type Antibody Screen Administered Medications Discontinued Medications Sodium Chloride (Nss 1000ml) 1,000 mls @ 999 mls/hr IV .Q1H1M ONE Stop: 08/07/22 14:32 Last Infusion: 08/07/22 14:49 Dose: 0 mls/hr Documented By: Admin: 08/07/22 13:47 Dose: 999 mls/hr Documented By: LENNY Sodium Chloride (Nss 1000ml) 1,000 mls @ 999 mls/hr IV .Q1H1M ONE Stop: 08/07/22 14:56 Last Admin: 08/07/22 14:56 Dose: 999 mls/hr Documented By: [facility] Discharge Plan Visit Data Chief Complaint: Rectal Bleed Stated Complaint: REF BY , RECTAL BLEED, COLONOSCOPY 08/03 ED Provider: Wei Tejeda Discharge Problem: Acute GI bleeding, Acute hypotension Discharge Instructions Interventions: ED Discharge Assessment Last Done: 08/07/22 15:34 Forms Stand Alone Forms: My [facility] [employer] ([employer] Prescriptions Prescriptions: No Action famotidine 20 mg tablet 20 mg PO BID 90 Days Qty: 180 3RF estradiol 0.01 % (0.1 mg/gram) cream 1 g vaginal 2XWK Qty: 42.5 1RF Symbicort 80-4.5 mcg/actuation HFA aerosol inhaler 2 puff INH BID Qty: 3 1RF Rx Instructions: rinse mouth and spit after use. ezetimibe 10 mg tablet 10 mg PO DAILY Qty: 90 3RF atorvastatin 80 mg tablet 80 mg PO DAILY Qty: 90 3RF clopidogrel 75 mg tablet 75 mg PO QAM 90 Days Qty: 90 3RF losartan 25 mg tablet 12.5 mg PO QAM 90 Days Qty: 45 3RF carvedilol 25 mg tablet 25 mg PO BID Qty: 180 3RF levothyroxine 75 mcg tablet See Rx Instructions .ROUTE .COMPLEX Rx Instructions: 75 mcg orally; TAKES 75 MCG EVERY DAY, ADDS 1/4 OF TAB EVERY OTHER DAY TO TOTAL 93.73 MCG. montelukast 10 mg tablet 10 mg PO DAILY potassium chloride 20 mEq tablet extended release 20 meq PO DAILY coQ10 (ubiquinol) 100 mg capsule 400 mg PO DAILY azelastine 137 mcg (0.1 %) aerosol,spray 2 sprays intranasal BID mometasone 50 mcg/actuation spray,non-aerosol 2 sprays intranasal DAILY albuterol sulfate 90 mcg/actuation HFA aerosol inhaler 2 puffs inhalation Q4H PRN (Reason: shortness of breath or wheezing) Qty: 1 adapalene 0.1 % gel 1 appln topical DAILY cyanocobalamin (vitamin B-12) 1,000 mcg capsule 1,000 mcg PO DAILY fexofenadine-pseudoephedrine 60-120 mg tablet extended release 12 hr 1 tab PO BID guaifenesin [Mucinex] 600 mg tablet extended release 12hr 600 mg PO BID PRN (Reason: Nasal Congestion) nicotine 7 mg/24 hr patch 24 hour 1 patch transdermal Q24H Qty: 14 2RF cholecalciferol (vitamin D3) 50 mcg (2,000 unit) capsule 50 mcg PO DAILY naproxen sodium 550 mg tablet 550 mg PO BID Krill Oil ([place] 3 and 6) 1000-130(40-80) mg Capsule 1 cap PO DAILY nitroglycerin [Nitrostat] 0.4 mg Tablet, Sublingual 0.4 mg sublingual UD PRN (Reason: chest pain) 30 Days Qty: 60 1RF Rx Instructions: every 15 minutes for chest pain, max 3 doses in 24 hours aspirin 81 mg Tablet,Delayed Release (Dr/Ec) 81 mg PO QAM 30 Days Qty: 30 3RF benzonatate 200 mg capsule 200 mg PO TID Referrals Referrals: Austin Preciado MD [Primary Care Provider] -
[2022-08-07 14:00] LABS: Hematocrit (blood only) 51.9 % (34.1-44.9); Hemoglobin 18.2 g/dl (12.0-16.0); Mean Corpuscular Hemoglobin 32.3 pg (25.0-34.0); Mean Corpuscular Hgb Conc 35.1 g/dL (32.0-36.0); Mean Platelet Volume 10.4 fL (9.4-12.3); Platelet Count 288 K/uL (130-400); RDW Coefficient of Variation 12.5 % (11.5-14.5); RDW Standard Deviation 42.5 fL (36.4-46.3); Red Blood Count 5.64 M/uL (3.93-5.22); White Blood Count 14.77 K/ul (4.8-10.8)
[2022-08-07 14:02] LABS: iSTAT Creatinine 0.9 mg/dl (0.6-1.3); iSTAT Hemoglobin 18.4 g/dl (12.0-16.0); iSTAT Ionized Calcium 1.13 mmol/l (1.12-1.32); iSTAT Potassium 4.9 mmol/L (3.3-5.0)
[2022-08-07 14:14] LABS: Basophils # (auto) 0.03 K/uL (0-0.2); Basophils % (auto) 0.2 %; Eosinophils # (auto) 0.08 K/uL (0-0.50); Eosinophils % (auto) 0.5 %; Immature Granulocytes # (auto) 0.08 K/uL (0.00-0.02); Immature Granulocytes % (auto) 0.5 %; Lymphocytes # (auto) 2.45 K/uL (1.2-3.4); Lymphocytes % (auto) 16.6 %; Monocytes # (auto) 1.37 K/uL (0.24-0.82); Monocytes % (auto) 9.3 %; Neutrophils # (auto) 10.76 K/uL (1.4-6.5); Neutrophils % (auto) 72.9 %
--- NOTE | 2022-08-07 14:23 | History & Physical Report ---
Date of Service August 07, 2022 Assessment & Plan (1) Acute GI bleeding: Plan: Presented with bright red blood per rectum, suspect lower GI bleed post colonoscopy - Colonoscopy 5 days ago 16 polyps removed, diarrhea 4-5AM BRBPR Q15-20M. Last bleeding at around 530 this morning. -Case discussed with GI. Recommended for admission and repeat scope. Was reviewed with the ER and Dr. Guadarrama, anticipate repeat colonoscopy tomorrow with prep this afternoon. Supportive care at this time. Patient with poor p.o. intake and appears volume contracted on admission, receiving fluids with improvement in blood pressure and tachycardia Blood consult and type and cross on file - Hgb 18.2 on admission -Initial blood pressures 90/68 with heart rate 104, clinically volume contracted. Receiving fluid resuscitation then IV FM -Continue LR 125 cc/h Hemoglobin transfusion threshold 7.0, or with symptomatic drop >2.0 N.p.o. H&H every 6 hours CAD, history of STEMI 05/2020 s/p 3X DOUGLAS distal RCA into PDA Continue statin Follows with cardiology. Continued on DAPT, however can be maintained on aspirin monotherapy with clopidogrel held for noncardiac surgeries Preserved LV function Mild persistent asthma Encouraged to quit smoking Continue Symbicort twice daily, Singulair At last PFTs mildly reduced DLCO? Early emphysema Impaired fasting glucose Last A1c 5.3% N.p.o., BMP daily Defer SSI at this time Admitting glucose 119 DVT prophylaxis: SCDs, defer pharmacal prophylaxis in the setting of bleed Diet: N.p.o. Disposition, medical telemetry for GI bleed pending endoscopy CODE STATUS: Full code (2) Dyspareunia: (3) CAD (coronary artery disease): (4) Diabetes: (5) GERD (gastroesophageal reflux disease): (6) Tobacco abuse: (7) Mild persistent asthma: (8) Hypertension: History of Present Illness Primary Care Provider: Austin Preciado MD Loren is a 51-year-old female the past medical history of CAD, GERD, tobacco abuse, asthma, unusual reflux, MK, hyperlipidemia who presents with GI bleed after colonoscopy on Saturday, last bleeding this morning Bleeding 12-5:30 this morning. Had bright red bowel movements every 15-30 mintues for a few hours, then stopped. No black bowel movements/melena had upper colonoscopy with multiple polyps removed last Saturday. No prior history of bleeding. Mild right lower quadrant abdominal pain after the procedure, no rebound pain in abdomen otherwise feels okay. No lightheadedness/dizziness No chest pain or chest pressure No shortness of breath Had been eating and drinking until midnight last night No prior bleeding problems. No melena. Vomtiing with her colonoscopy prep, otherwise no vomiting since Saturday No abdominal pain, no nausea Urinating normally, no dysuria or oliguria +RLQ TTP Medical History: Reviewed Medications: Reviewed Surgical History: Reviewed Allergies: Reviewed Social History: Rare alcohol use, none in last 3 days. Tobacco use, 1/2-1ppd trying to quit. Would like a nicotine patch Code Status: Trina Huertas [phone]. Full Code. Allergies Allergy/AdvReac Type Severity Reaction Status Date / Time diphenhydramine Allergy Intermediate SWELLING Verified 01/04/22 09:13 Penicillins Allergy Intermediate SWELLING Verified 01/04/22 09:13 cashew nut Allergy FACIAL Unverified 01/04/22 09:13 SWELLING aspirin AdvReac Intermediate NOSEBLEEDS Verified 01/04/22 09:13 METALS Allergy Intermediate WELTS, Uncoded 01/04/22 09:13 ITCHING ON SKIN Home Medications Medication Instructions Recorded Confirmed Type adapalene 0.1 % topical gel 1 appln topical DAILY 06/01/19 01/04/22 History albuterol sulfate 90 mcg/actuation 2 puffs inhalation Q4H PRN 06/01/19 01/04/22 History aerosol inhaler shortness of breath or wheezing #1 g azelastine 137 mcg (0.1 %) nasal 2 sprays intranasal BID 06/01/19 01/04/22 History spray aerosol cyanocobalamin (vitamin B-12) 1,000 mcg PO DAILY 06/01/19 01/04/22 History 1,000 mcg capsule mometasone 50 mcg/actuation nasal 2 sprays intranasal DAILY 06/01/19 01/04/22 History spray fexofenadine 60 mg-pseudoephedrine 1 tab PO BID 11/10/19 01/04/22 History ER 120 mg tablet,ext.release,12 hr guaifenesin 600 mg tablet, 600 mg PO BID PRN Nasal Congestion 11/10/19 01/04/22 History extended release 12 hr (Mucinex) levothyroxine 75 mcg tablet See Rx Instructions .Route .COMPLEX 11/10/19 01/04/22 History montelukast 10 mg tablet 10 mg PO DAILY 11/10/19 01/04/22 History potassium chloride 20 mEq 20 meq PO DAILY 11/10/19 01/04/22 History tablet,extended release krill oil 1,000 mg-om3 130 mg-dha 1 cap PO DAILY 06/12/20 01/04/22 History 40 mg-epa 80 pg-qm1-yvj-astax cap (Krill Oil (Herald 3 and 6)) naproxen sodium 550 mg tablet 550 mg PO BID 06/12/20 01/04/22 History aspirin 81 mg tablet,delayed 81 mg PO QAM 30 days #30 tabs 06/14/20 01/04/22 Rx release nitroglycerin 0.4 mg sublingual 0.4 mg sublingual UD PRN chest 06/14/20 01/04/22 Rx tablet (Nitrostat) pain 30 days #60 tabs cholecalciferol (vitamin D3) 50 50 mcg PO DAILY 06/23/20 01/04/22 History mcg (2,000 unit) capsule coQ10 (ubiquinol) 100 mg capsule 400 mg PO DAILY 09/27/20 01/04/22 History famotidine 20 mg tablet 20 mg PO BID 3 months #180 tabs 09/29/20 07/24/21 Rx nicotine 7 mg/24 hr daily 1 patch transdermal Q24H #14 ea 04/21/21 01/04/22 Rx transdermal patch estradiol 0.01% (0.1 mg/gram) 1 g vaginal 2XWK #42.5 grams 06/12/21 01/04/22 Rx vaginal cream benzonatate 200 mg capsule 200 mg PO TID 06/21/21 01/04/22 History budesonide-formoterol HFA 80 2 puff inhalation BID #3 Inhalers 10/30/21 01/04/22 Rx mcg-4.5 mcg/actuation aerosol inhaler (Symbicort) ezetimibe 10 mg tablet 10 mg PO DAILY #90 tabs 03/30/22 Rx atorvastatin 80 mg tablet 80 mg PO DAILY #90 tabs 04/03/22 Rx clopidogrel 75 mg tablet 75 mg PO QAM 90 days #90 tabs 04/03/22 Rx losartan 25 mg tablet 12.5 mg PO QAM 90 days #45 tabs 04/30/22 Rx carvedilol 25 mg tablet 25 mg PO BID #180 tabs 06/21/22 Rx Past Med/Surg History Medical History Abnormal finding on mammography Allergic rhinitis due to animal dander Allergic rhinitis due to pollen CAD (coronary artery disease) Chronic hoarseness Diabetes Dyslipidemia Eustachian tube dysfunction Extrinsic asthma GERD (gastroesophageal reflux disease) Hypertension Laryngopharyngeal reflux disease Lateral femoral cutaneous neuropathy Lump or mass in breast Mild persistent asthma Obstructive sleep apnea Postoperative pain Sinus tachycardia Tobacco abuse Surgical History H/O heart artery stent H/O total hysterectomy History of colposcopy History of cryosurgery Cervical History of dental surgery History of tooth extraction Status post hysteroscopic ablation of endometrium Family History Father Hypertension Cancer Cardiac disorder Heart disease Mother Asthma Allergies Sinusitis Hypertension Grandmother Uterine cancer Cervical cancer Uncle Asthma FHx: deafness or hearing loss Allergies Sinusitis Hypertension Cancer Cardiac disorder Grandfather Cardiac disorder Grandmother Cancer Social History Smoking Status: Current every day smoker Tobacco Type: Cigarettes Cigarettes Per Day: 20; Second Hand Exposure: No; Hx Alcohol Use: Yes Alcohol type: beer Hx Substance Use: No Preferred Language: Slovak Communication Ability: Effective Senior Backup Administrator Required: No Beliefs That Will Affect Care: None Current Living Situation: Spouse Feels Safe at Home: Yes Assistive Devices: None Review of Systems Review of Systems: All systems reviewed & are unremarkable except as noted in Subjective Physical Exam Physical Exam: General: A&Ox3. NAD. Cooperative. No distress, sitting up in bed on phone at time of assessment. No lightheadedness/dizziness. Systolic blood pressure improved greater than 100 at bedside check HEENT: Atraumatic, normocephalic. Vision/hearing intact Pulm: CTAB A&P. -wheezes, -rales, -rhonchi. Symmetrical chest rise. No increased work of breathing. No respiratory distress. Cardiac: Intermittently tachycardic, regular, -mrg. Radial pulses intact and symmetrical. Abdominal: Mild RLQ pain without rebound. Otherwise nontender, nondistended, soft. BS present. Extremities: Warm, dry. Well perfused with cap refill less than 2 seconds. Results & Data Results & Data ([facility]) Vital Signs (Past 12 Hours) Vital Signs Temp Pulse Pulse Resp BP BP Pulse Ox 08/07/22 13:45 98 08/07/22 13:45 104 H 13 92/68 L 98 08/07/22 13:03 36.7 C 119 H 20 113/75 96 O2 Del Method 08/07/22 13:45 Room Air 08/07/22 13:45 Room Air 08/07/22 13:03 Room Air PG Care Time/CCT Total # of Minutes Spent Total Time Spent with Patient: Total time spent is greater than 50% in coordination of care (as documented) at patient's floor/unit and/or counseling patient: Coding Level of Care Code INT OBSERVATION CARE 50M LVL 2 Diagnoses Acute GI bleeding K92.2 Dyspareunia CAD (coronary artery disease) I25.10 Diabetes E11.9 GERD (gastroesophageal reflux disease) K21.9 Tobacco abuse Z72.0 Mild persistent asthma J45.30 Hypertension I10 Hypertension type: essential hypertension (1) Hypertension Hypertension type: essential hypertension Qualified Code(s): I10 - Essential (primary) hypertension
[2022-08-07 14:51] LABS: Partial Thromboplastin Ratio 0.9; Partial Thromboplastin Time 25.7 Seconds (21.0-31.0); Prothrombin Time 10.6 Seconds (9.0-12.0)
[2022-08-07 14:52] LABS: Albumin Globulin Ratio 1.6 (0.9-2); Albumin Level 3.9 gm/dl (3.4-5.0); BUN Creatinine Ratio 16.8 (10-20); Bilirubin,Total 0.5 mg/dl (0.2-1.0); Calcium 9.2 mg/dl (8.5-10.1); Creatinine Clr Calc Pharmacy 64.7 ml/min; Est GFR (African American) 79.8 ml/min; Est GFR (Non-African American) 68.9 ml/min; Globulin 2.5 gm/dl (2.5-4.0); Potassium 4.6 mmol/L (3.5-5.1); Total Protein 6.4 gm/dl (6.0-8.3)
[2022-08-07 14:58] LABS: Troponin I High Sensitivity 3.9 pg/ml (0-14)
[2022-08-07] MEDS ORDERED: ALBUTEROL HFA 8 GM INHALER INH PRN (16:20)
--- NOTE | 2022-08-07 17:16 | Billing Data ---
Date of Service August 07, 2022 Coding Level of Care Code 30779 Inpt Consult Level 4
[2022-08-07 17:21] LABS: Hemoglobin 15.5 g/dl (12.0-16.0)
[2022-08-07] MEDS: LACTATED RINGER'S 1,000 ML IV SCH (17:36)
--- NOTE | 2022-08-07 20:37 | Consultation Report ---
GASTROENTEROLOGY CONSULTATION AGE: 51 SEX: Female. RACE: . ATTENDING PHYSICIAN: Dr. Dubois. CONSULTING PHYSICIAN: Dr. Guadarrama. REASON FOR CONSULTATION: GI bleeding. HISTORY OF PRESENT ILLNESS: The patient is a 51-year-old female who underwent a colonoscopy with Dr. Chacorta Gonsalez at [facility]'s outpatient GI facility in [place] on 08/03/2022. She at that time had a greater than 15 polyps removed and states that she was doing well post- procedure. However, she states that last evening, she developed abdominal pain, cramping followed by several episodes of blood in her stools passing approximately a teaspoon of blood with each bowel movement and stating that she had a greater than 10 bowel movements. She was slightly hypotensive on arrival with blood pressures in the 90s systolically with heart rate of 104 and was noted to be clinically volume contracted as her admission hemoglobin was 18.2. She was given IV fluids and I was contacted and saw the patient in the ER. She does have a colonoscopy report with her from her procedure last Saturday and it does appear that she had polyps removed in several locations in the colon, the largest of which was in the cecum. Due to the amount of bleeding and the patient's relative hypotension, I discussed with her that the best course of action would be to have her admitted and undergo bowel prep to cleanse the bowel of remaining blood to get a better look so that we could find the lesion, which was bleeding. She agreed with the plan. She currently denied any abdominal pain, fevers, chills, nausea, vomiting, hematemesis or melena. She states that she has not had a bowel movement since she arrived to the ER. She further denied any chest pain, palpitation, shortness of breath, cough, dysuria, hematuria, arthralgias, myalgias, numbness or tingling in her extremities or skin rash. She had no complaints otherwise. PAST MEDICAL HISTORY: Extensive and includes coronary artery disease, asthma, diabetes, tobacco abuse, dyslipidemia, obstructive sleep apnea, gastroesophageal reflux disease. PAST SURGICAL HISTORY: Includes a total hysterectomy, colposcopy, cardiac catheterization with stent placement x3, third molar extractions. ALLERGIES: PENICILLIN, DIPHENHYDRAMINE, ASPIRIN, CASHEWS. MEDICATIONS: At home include albuterol via inhaler 2 puffs every 4 hours as needed, aspirin 81 mg daily, Lipitor 80 mg daily, benzonatate 200 mg p.o. t.i.d., carvedilol 25 mg p.o. b.i.d., Plavix 75 mg p.o. q.a.m., estradiol vaginal cream 1 gram applied as directed, Pepcid 20 mg p.o. b.i.d., Ezetimibe 10 mg p.o. daily, fexofenadine 60 mg with Sudafed 120 mg p.o. b.i.d., Krill oil daily, levothyroxine 75 mcg daily, losartan 25 mg p.o. q.a.m., losartan 12.5 mg p.o. q.a.m., Singulair 10 mg p.o. daily, naproxen 550 mg p.o. b.i.d., nicotine transdermal patch, nitroglycerin 0.4 mg sublingual p.r.n. chest pain and potassium chloride 20 mEq p.o. daily. SOCIAL HISTORY: She lives with her spouse. She smokes a pack a day. She occasionally has alcohol. She denies any illicit drug use. FAMILY HISTORY: Negative for GI malignancy or inflammatory bowel disease. REVIEW OF SYSTEMS: Negative x12 systems review other than pertinent positives listed in the HPI. PHYSICAL EXAMINATION: VITAL SIGNS: Include a temperature of 36.7, pulse of 104, blood pressure 92/68, respirations 18, O2 98% on room air. GENERAL: She is awake and cooperative, in no acute distress. HEENT: Normocephalic, atraumatic. EYES: Pupils equal, round. Extraocular muscles are intact. ENT: External evaluation of ears and nose are normal. Oropharynx is clear. NECK: Soft and supple. There is no JVD or lymphadenopathy. CHEST: Clear to auscultation bilaterally. CARDIOVASCULAR: Regular rate and rhythm. ABDOMEN: Soft, nontender, nondistended, positive bowel sounds. There is no hepatosplenomegaly or stigmata of chronic liver disease. EXTREMITIES: No clubbing, cyanosis or edema. SKIN: Soft and pink. Good turgor. LABORATORY STUDIES AND RADIOGRAPHIC STUDIES: Were reviewed. ASSESSMENT AND PLAN: A 51-year-old female who presents to the ER 5 days post-colonoscopy with multiple episodes of bright red blood per rectum. PLAN: The most likely cause of the patient's GI bleeding at present is a post- polypectomy bleed from her prior procedure because she recently had instrumentation in the colon. I would recommend that she undergo bowel prep with MiraLax bowel prep regimen and undergo a colonoscopy tomorrow for further evaluation of her symptomatology, I would recommend clear liquids until following the bowel prep and then n.p.o. in preparation for her colonoscopy tomorrow. I will follow her clinical course and make further recommendations as needed. If you have any further questions, please do not hesitate in contacting me. Job ID: [id number] HOLA
[2022-08-07] MEDS: NICOTINE 14 MG/24 HR PATCH TD SCH (21:15)
[2022-08-07] MEDS: carvediloL 25 MG TAB PO SCH (21:16)
[2022-08-07] MEDS: ACETAMINOPHEN 500 MG TAB PO PRN (22:10)
[2022-08-07] MEDS: MONTELUKAST SODIUM 10 MG TABLET PO SCH (22:11)
[2022-08-07 22:46] LABS: Hemoglobin 14.8 g/dl (12.0-16.0)
[2022-08-08] MEDS: LACTATED RINGER'S 1,000 ML IV SCH ×2 (01:45→08:55)
[2022-08-08] MEDS: FLUTICASONE/VILANTEROL 100/25MCG 14 PUFFS/INHALER INH SCH ×2 (05:47→09:52)
[2022-08-08] MEDS: ACETAMINOPHEN 500 MG TAB PO PRN (06:17)
[2022-08-08] MEDS ORDERED: LEVOTHYROXINE SODIUM 75 MCG TABLET PO SCH (06:30)
--- NOTE | 2022-08-08 08:36 | Hospitalist Progress Note ---
Date of Service August 08, 2022 Assessment & Plan (1) Acute GI bleeding: Plan: Presented with bright red blood per rectum, suspect lower GI bleed post colonoscopy - Colonoscopy 5 days ago 16 polyps removed, diarrhea 4-5AM BRBPR Q15-20M. Last bleeding at around 530 this morning. -Case discussed with GI. Recommended for admission and repeat scope. Was reviewed with the ER and Dr. Guadarrama, anticipate repeat colonoscopy tomorrow with prep this afternoon. Supportive care at this time. Patient with poor p.o. intake and appears volume contracted on admission, receiving fluids with improvement in blood pressure and tachycardia Blood consult and type and cross on file - Hgb 18.2 on admission 14.8 now -Initial blood pressures 90/68 with heart rate 104, clinically volume contracted. Receiving fluid resuscitation then IV FM, currently BP 117/78 and P 82 -Continue LR 125 cc/h Hemoglobin transfusion threshold 7.0, or with symptomatic drop >2.0 N.p.o. H&H every 6 hours (2) Dyspareunia: (3) CAD (coronary artery disease): Plan: CAD, history of STEMI 05/2020 s/p 3X DOUGLAS distal RCA into PDA Continue statin Follows with cardiology. Continued on DAPT, however can be maintained on a spirin monotherapy with clopidogrel held for noncardiac surgeries Preserved LV function (4) Diabetes: Plan: Impaired fasting glucose Last A1c 5.3% N.p.o., BMP daily Defer SSI at this time Admitting glucose 119 (5) GERD (gastroesophageal reflux disease): (6) Tobacco abuse: Plan: - On nicoderm patch (7) Mild persistent asthma: Plan: Mild persistent asthma Encouraged to quit smoking Continue Symbicort twice daily, Singulair At last PFTs mildly reduced DLCO? Early emphysema (8) Hypertension: Plan: - Continue Carvedilol 25mg BID (9) Hypothyroidism: Plan: - Continue home dose of Levothyroxine Plan DVT prophylaxis: SCDs, defer pharmacal prophylaxis in the setting of bleed Diet: N.p.o. Disposition, medical telemetry for GI bleed pending endoscopy CODE STATUS: Full code Discussed patient with Dr Maradiaga Admission and Anticipated Discharge Date Admission Date: August 07, 2022 Subjective Patient seen this AM in rounds Results & Data Results & Data ([facility]) Vital Signs (Past 12 Hours) Vital Signs Temp Pulse Pulse Resp BP Pulse Ox O2 Del Method 08/08/22 08:00 36.5 C 82 16 117/78 94 Room Air 08/08/22 07:00 89 08/08/22 05:00 36.7 C 84 14 142/84 H 93 Room Air 08/07/22 23:09 36.3 C L 82 16 140/88 96 Room Air PG Care Time/CCT Total # of Minutes Spent Total Time Spent with Patient: Total time spent is greater than 50% in coordination of care (as documented) at patient's floor/unit and/or counseling patient: Coding Diagnoses Acute GI bleeding K92.2 Dyspareunia CAD (coronary artery disease) I25.10 Diabetes E11.9 GERD (gastroesophageal reflux disease) K21.9 Tobacco abuse Z72.0 Mild persistent asthma J45.30 Hypertension I10 Hypertension type: essential hypertension Hypothyroidism E03.9 (1) Hypertension Hypertension type: essential hypertension Qualified Code(s): I10 - Essential (primary) hypertension
[2022-08-08] MEDS: carvediloL 25 MG TAB PO SCH (08:54)
[2022-08-08] MEDS: NICOTINE 14 MG/24 HR PATCH TD SCH (08:54)
--- NOTE | 2022-08-08 09:39 | History & Physical Bridge Note ---
Date of Service August 08, 2022 History & Physical Bridge Note I have examined the patient, reviewed the History & Physical and in the interval since the performance of the History & Physical I have noted the following changes of clinical significance: no changes noted. Patient is a 51 yo female with BRBPR after her colonoscopy performed at [facility]. Patient reports consuming 75% of her bowel prep overnight. She denies any rectal bleeding with her bowel prep. She notes some ri ght sided abdominal discomfort, but her abdomen is soft and she has bowel sounds in all 4 quadrants. She has been NPO with the exception of her prep. Keep NPO & proceed with colonoscopy today.
[2022-08-08] MEDS: MONTELUKAST SODIUM 10 MG TABLET PO SCH (09:53)
--- NOTE | 2022-08-08 09:55 | Anesthesiology Consultation ---
Date of Service August 08, 2022 Assessment & Plan (1) Encounter for pre-operative examination: Chart Review Chart Review: Acceptable Risk for Surgery, Patient NOT seen in Pre Admission Testing and data entry processor initiated Consults Requested none ASA ASA3 Proposed Anesthesia Anesthesia Type: MAC Risk / Benefits Reviewed With: PT / POA / Parent / Guardian, Accepts Plan and Informed Consent Obtained History Surgery Operation Date: 08/08/22 16:30 Proposed Procedures p Colonoscopy Dr. Thierry Valverde Case, DO Height/Weight Height: 5 ft 1 in Weight: 78.925 kg Allergies Allergy/AdvReac Type Severity Reaction Status Date / Time diphenhydramine Allergy Intermediate SWELLING Verified 01/04/22 09:13 Penicillins Allergy Intermediate SWELLING Verified 01/04/22 09:13 cashew nut Allergy FACIAL Unverified 01/04/22 09:13 SWELLING contact metal agent Allergy welts, Verified 08/07/22 16:34 itching on skin aspirin AdvReac Intermediate NOSEBLEEDS Verified 01/04/22 09:13 Medications Home Medications Medication Instructions Recorded Confirmed Last Taken adapalene 0.1 % topical gel 1 appln topical DAILY 06/01/19 01/04/22 06/11/20 albuterol sulfate 90 mcg/actuation 2 puffs inhalation Q4H PRN 06/01/19 08/07/22 Unknown aerosol inhaler shortness of breath or wheezing #1 g azelastine 137 mcg (0.1 %) nasal 2 sprays intranasal BID 06/01/19 01/04/22 06/11/20 spray aerosol cyanocobalamin (vitamin B-12) 1,000 mcg PO DAILY 06/01/19 01/04/22 06/11/20 1,000 mcg capsule mometasone 50 mcg/actuation nasal 2 sprays intranasal DAILY 06/01/19 08/07/22 06/11/20 spray fexofenadine 60 mg-pseudoephedrine 1 tab PO BID 11/10/19 08/07/22 06/11/20 ER 120 mg tablet,ext.release,12 hr guaifenesin 600 mg tablet, 600 mg PO BID PRN Nasal Congestion 11/10/19 01/04/22 Unknown extended release 12 hr (Mucinex) levothyroxine 75 mcg tablet See Rx Instructions .Route .COMPLEX 11/10/19 08/07/22 06/11/20 montelukast 10 mg tablet 10 mg PO DAILY 11/10/19 08/07/22 06/11/20 potassium chloride 20 mEq 20 meq PO DAILY 11/10/19 08/07/22 06/11/20 tablet,extended release krill oil 1,000 mg-om3 130 mg-dha 1 cap PO DAILY 06/12/20 08/07/22 06/11/20 40 mg-epa 80 wm-rm2-mmb-astax cap (Krill Oil ([place] 3 and 6)) naproxen sodium 550 mg tablet 550 mg PO BID 06/12/20 08/07/22 06/11/20 aspirin 81 mg tablet,delayed 81 mg PO QAM 30 days #30 tabs 06/14/20 08/07/22 Unknown release nitroglycerin 0.4 mg sublingual 0.4 mg sublingual UD PRN chest 06/14/20 08/07/22 Unknown tablet (Nitrostat) pain 30 days #60 tabs cholecalciferol (vitamin D3) 50 50 mcg PO DAILY 06/23/20 08/07/22 Unknown mcg (2,000 unit) capsule coQ10 (ubiquinol) 100 mg capsule 400 mg PO DAILY 09/27/20 08/07/22 Unknown famotidine 20 mg tablet 20 mg PO BID 3 months #180 tabs 09/29/20 07/24/21 Unknown nicotine 7 mg/24 hr daily 1 patch transdermal Q24H #14 ea 04/21/21 08/07/22 Unknown transdermal patch estradiol 0.01% (0.1 mg/gram) 1 g vaginal 2XWK #42.5 grams 06/12/21 01/04/22 Unknown vaginal cream benzonatate 200 mg capsule 200 mg PO TID 06/21/21 08/07/22 Unknown budesonide-formoterol HFA 80 2 puff inhalation BID #3 Inhalers 10/30/21 08/07/22 Unknown mcg-4.5 mcg/actuation aerosol inhaler (Symbicort) ezetimibe 10 mg tablet 10 mg PO DAILY #90 tabs 03/30/22 Unknown atorvastatin 80 mg tablet 80 mg PO DAILY #90 tabs 04/03/22 08/07/22 Unknown clopidogrel 75 mg tablet 75 mg PO QAM 90 days #90 tabs 04/03/22 08/07/22 Unknown losartan 25 mg tablet 12.5 mg PO QAM 90 days #45 tabs 04/30/22 Unknown carvedilol 25 mg tablet 25 mg PO 2XD 08/07/22 08/07/22 08/07/22 09:00 Active Medications Generic Name Dose Route Start Last Admin Trade Name Freq PRN Reason Stop Dose Admin Acetaminophen 1,000 mg 08/07/22 21:47 08/08/22 06:17 Acetaminophen 500 Mg Tab PO 09/06/22 21:46 1,000 mg Q8H PRN Administration Pain Carvedilol 25 mg 08/07/22 21:00 08/08/22 08:54 Carvedilol 25 Mg Tab PO 09/06/22 20:59 25 mg BID ANGIE Administration Fluticasone/Vilanterol 1 puffs 08/07/22 22:00 08/08/22 09:52 Fluticasone/Vilanterol 100/25mcg 14 Puffs/Inhaler INH 09/06/22 21:59 1 puffs DAILY ANGIE Administration Lactated Ringer's 1,000 mls @ 125 mls/hr 08/07/22 16:20 08/08/22 08:55 Lr IV 09/06/22 16:19 125 mls/hr .Q8H ANGIE Administration Levothyroxine Sodium 75 mcg 08/08/22 06:30 08/08/22 06:17 Levothyroxine Sodium 75 Mcg Tablet PO 09/07/22 06:29 75 mcg DAILYBB ANGIE Administration Miscellaneous 1 each 08/08/22 08:59 08/08/22 08:55 Remove Nicoderm Patch N/A 09/07/22 08:58 1 each DAILY@0859 ANGIE Administration Nicotine 14 mg 08/07/22 18:00 08/08/22 08:54 Nicotine 14 Mg/24 Hr Patch TD 09/06/22 17:59 14 mg QAM ANGIE Administration Past Medical History Medical History (Updated 08/08/22 @ 09:57 by Sachin Knott MD) Abnormal finding on mammography Allergic rhinitis due to animal dander Allergic rhinitis due to pollen CAD (coronary artery disease) Chronic hoarseness Diabetes Dyslipidemia Encounter for pre-operative examination Eustachian tube dysfunction Extrinsic asthma GERD (gastroesophageal reflux disease) Hypertension Hypothyroidism Laryngopharyngeal reflux disease Lateral femoral cutaneous neuropathy Lump or mass in breast Mild persistent asthma Obstructive sleep apnea Postoperative pain Sinus tachycardia Tobacco abuse Past Family History Family History Father Hypertension Cancer Cardiac disorder Heart disease Mother Asthma Allergies Sinusitis Hypertension Grandmother Uterine cancer Cervical cancer Uncle Asthma FHx: deafness or hearing loss Allergies Sinusitis Hypertension Cancer Cardiac disorder Grandfather Cardiac disorder Grandmother Cancer Past Surgical History Surgical History H/O heart artery stent H/O total hysterectomy History of colposcopy History of cryosurgery Cervical History of dental surgery History of tooth extraction Status post hysteroscopic ablation of endometrium Social History Smoking Status: Current every day smoker tobacco type: cigarettes Smoking cigarettes per day: 20 Hx Alcohol Use: Yes Alcohol type: beer alcohol intake frequency: a few times a month Hx Substance Use: No Physical Exam Vital Signs Last Vital Signs Temp 36.5 C 08/08/22 08:00 Pulse 82 08/08/22 08:00 Resp 16 08/08/22 08:00 BP 117/78 08/08/22 08:00 Pulse Ox 94 08/08/22 08:00 O2 Del Method 08/08/22 08:00 Testing Laboratory Results 08/07/22 22:21 08/07/22 14:14 PT 10.6 Seconds (9.0-12.0) 08/07/22 14:14 INR 1.0 (0.9-1.1) 08/07/22 14:14 APTT 25.7 Seconds (21.0-31.0) 08/07/22 14:14 Blood Type O Positive 08/07/22 14:14 Antibody Screen NEGATIVE 08/07/22 14:14 Electrocardiogram Date: 08/07/2207-Aug-2022 13:39:10 [facility]-EDSTAT ROUTINE RETRIEVAL Sinus tachycardia Otherwise normal ECG When compared with ECG of 21-JUN-2021 20:00, No significant change was found Chest X-Ray Date: 06/21/21 XR chest 1V portable HISTORY: Atypical Chest Pain COMPARISON: Chest 06/12/2020. FINDINGS: There are old, healed left-sided rib fractures. The lungs are clear. The heart is normal in size. No pleural effusions. No pneumothorax. No evidence for pulmonary edema. IMPRESSION: No acute process. Echocardiogram Date: 06/12/20 EF: 65-70% LV Function: normal RWMA: + none Other Findings: + LVH (mild)
[2022-08-08] MEDS ORDERED: PROPOFOL IV EMULSION 10 MG/ML 20 ML VIAL IV ONE (10:14)
[2022-08-08] MEDS ORDERED: LIDOCAINE 2% MPF LOCAL 5 ML VIAL INFIL ONE (10:14)
--- NOTE | 2022-08-08 10:33 | History & Physical Report ---
Date of Service August 08, 2022 Assessment & Plan (1) Post-polypectomy bleeding: Plan: colonoscopy Admission and Anticipated Discharge Date Admission Date: August 07, 2022 History of Present Illness Chief Complaint: post-polypectomy bleed (Dr. Gonsalez) Primary Care Provider: Austin Preciado MD Post polypectomy bleed Allergies Allergy/AdvReac Type Severity Reaction Status Date / Time diphenhydramine Allergy Intermediate SWELLING Verified 08/08/22 10:06 Penicillins Allergy Intermediate SWELLING Verified 08/08/22 10:06 cashew nut Allergy FACIAL Verified 08/08/22 10:06 SWELLING contact metal agent Allergy welts, Verified 08/08/22 10:06 itching on skin aspirin AdvReac Intermediate NOSEBLEEDS Verified 08/08/22 10:06 Home Medications Medication Instructions Recorded Confirmed Type adapalene 0.1 % topical gel 1 appln topical DAILY 06/01/19 01/04/22 History albuterol sulfate 90 mcg/actuation 2 puffs inhalation Q4H PRN 06/01/19 08/07/22 History aerosol inhaler shortness of breath or wheezing #1 g azelastine 137 mcg (0.1 %) nasal 2 sprays intranasal BID 06/01/19 01/04/22 History spray aerosol cyanocobalamin (vitamin B-12) 1,000 mcg PO DAILY 06/01/19 01/04/22 History 1,000 mcg capsule mometasone 50 mcg/actuation nasal 2 sprays intranasal DAILY 06/01/19 08/07/22 History spray fexofenadine 60 mg-pseudoephedrine 1 tab PO BID 11/10/19 08/07/22 History ER 120 mg tablet,ext.release,12 hr guaifenesin 600 mg tablet, 600 mg PO BID PRN Nasal Congestion 11/10/19 01/04/22 History extended release 12 hr (Mucinex) levothyroxine 75 mcg tablet See Rx Instructions .Route .COMPLEX 11/10/19 08/07/22 History montelukast 10 mg tablet 10 mg PO DAILY 11/10/19 08/07/22 History potassium chloride 20 mEq 20 meq PO DAILY 11/10/19 08/07/22 History tablet,extended release krill oil 1,000 mg-om3 130 mg-dha 1 cap PO DAILY 06/12/20 08/07/22 History 40 mg-epa 80 pu-pd0-sue-astax cap (Krill Oil ([place] 3 and 6)) naproxen sodium 550 mg tablet 550 mg PO BID 06/12/20 08/07/22 History aspirin 81 mg tablet,delayed 81 mg PO QAM 30 days #30 tabs 06/14/20 08/07/22 Rx release nitroglycerin 0.4 mg sublingual 0.4 mg sublingual UD PRN chest 06/14/20 08/07/22 Rx tablet (Nitrostat) pain 30 days #60 tabs cholecalciferol (vitamin D3) 50 50 mcg PO DAILY 06/23/20 08/07/22 History mcg (2,000 unit) capsule coQ10 (ubiquinol) 100 mg capsule 400 mg PO DAILY 09/27/20 08/07/22 History famotidine 20 mg tablet 20 mg PO BID 3 months #180 tabs 09/29/20 07/24/21 Rx nicotine 7 mg/24 hr daily 1 patch transdermal Q24H #14 ea 04/21/21 08/07/22 Rx transdermal patch estradiol 0.01% (0.1 mg/gram) 1 g vaginal 2XWK #42.5 grams 06/12/21 01/04/22 Rx vaginal cream benzonatate 200 mg capsule 200 mg PO TID 06/21/21 08/07/22 History budesonide-formoterol HFA 80 2 puff inhalation BID #3 Inhalers 10/30/21 08/07/22 Rx mcg-4.5 mcg/actuation aerosol inhaler (Symbicort) ezetimibe 10 mg tablet 10 mg PO DAILY #90 tabs 03/30/22 Rx atorvastatin 80 mg tablet 80 mg PO DAILY #90 tabs 04/03/22 08/07/22 Rx clopidogrel 75 mg tablet 75 mg PO QAM 90 days #90 tabs 04/03/22 08/07/22 Rx losartan 25 mg tablet 12.5 mg PO QAM 90 days #45 tabs 04/30/22 Rx carvedilol 25 mg tablet 25 mg PO 2XD 08/07/22 08/07/22 History Past Med/Surg History Medical History (Updated 08/08/22 @ 09:57 by Sachin Knott MD) Abnormal finding on mammography Allergic rhinitis due to animal dander Allergic rhinitis due to pollen CAD (coronary artery disease) Chronic hoarseness Diabetes Dyslipidemia Encounter for pre-operative examination Eustachian tube dysfunction Extrinsic asthma GERD (gastroesophageal reflux disease) Hypertension Hypothyroidism Laryngopharyngeal reflux disease Lateral femoral cutaneous neuropathy Lump or mass in breast Mild persistent asthma Obstructive sleep apnea Postoperative pain Sinus tachycardia Tobacco abuse Surgical History H/O heart artery stent H/O total hysterectomy History of colposcopy History of cryosurgery Cervical History of dental surgery History of tooth extraction Status post hysteroscopic ablation of endometrium Family History Father Hypertension Cancer Cardiac disorder Heart disease Mother Asthma Allergies Sinusitis Hypertension Grandmother Uterine cancer Cervical cancer Uncle Asthma FHx: deafness or hearing loss Allergies Sinusitis Hypertension Cancer Cardiac disorder Grandfather Cardiac disorder Grandmother Cancer Social History Smoking Status: Current every day smoker Tobacco Type: Cigarettes Cigarettes Per Day: 20; Second Hand Exposure: No; Hx Alcohol Use: Yes Alcohol type: beer Hx Substance Use: No Preferred Language: Kazakh Communication Ability: Effective 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
--- NOTE | 2022-08-08 11:04 | GI REPORT ---
Patient Name: Loren Huerta Procedure Date: 08/08/2022 10:34 AM Date of : 1970 Admit Type: Inpatient Age: 51 Gender: Female Attending MD: Kat Lane DO, Procedure: Colonoscopy Providers: Kat Lane DO Referring MD: Chacorta Gonsalez MD Indications: Treatment of bleeding from polypectomy site (multiple polyps removed on colonoscopy [address] Gonsalez) Medicines: Propofol per Anesthesia Complications: No immediate complications. Estimated blood loss: None. Estimated Blood Loss: Estimated blood loss: none. Procedure: Pre-Anesthesia Assessment: - Prior to the procedure, a History and Physical was performed, and patient medications, allergies and sensitivities were reviewed. The patient's tolerance of previous anesthesia was reviewed. - The risks and benefits of the procedure and the sedation options and risks were discussed with the patient. All questions were answered and informed consent was obtained. - Patient identification and proposed procedure were verified prior to the procedure by the physician and the nurse. The procedure was verified in the pre-procedure area in the procedure room. - Mental Status Examination: alert and oriented. Airway Examination: normal oropharyngeal airway and neck mobility. Respiratory Examination: clear to auscultation. CV Examination: normal. Abdominal Examination: bowel sounds present, abdomen soft and non-tender, no masses or organomegaly noted. - ASA Grade Assessment: III - A patient with severe systemic disease. After I obtained informed consent, the scope was passed under direct vision. Throughout the procedure, the patient's blood pressure, pulse, and oxygen saturations were monitored continuously. The Scope was introduced through the anus and advanced to the terminal ileum. The colonoscopy was performed without difficulty. The patient tolerated the procedure well. The quality of the bowel preparation was good. Findings: The perianal and digital rectal examinations were normal. Pertinent negatives include normal sphincter tone and no palpable rectal lesions. The terminal ileum appeared normal. An area of mildly congested mucosa was found in the sigmoid colon, at the splenic flexure and at the hepatic flexure. The retroflexed view of the distal rectum and anal verge was normal and showed no anal or rectal abnormalities. Impression: - The examined portion of the ileum was normal. - No fresh or altered blood int he small bowel or colon. - Very mildly congested mucosa in the sigmoid colon, at the splenic flexure and at the hepatic flexure. Intervening normal appearing colon mucosa. - The distal rectum and anal verge are normal on retroflexion view. - No specimens collected. Recommendation: - Return patient to [facility] for possible discharge same day. - OK to resume Plavix. - Resume regular diet. Kat Lane D.O. Kat Lane, 08/08/2022 11:03:34 AM This report has been signed electronically. Note Initiated On: 08/08/2022 10:34 AM Number of Addenda: 0 I attest to the content of the Intraoperative Record and orders documented therein, exceptions below {[id number]}
--- NOTE | 2022-08-08 13:18 | Discharge Summary ---
Date of Service August 08, 2022 Principal Diagnosis postpolypectomy bleed Discharge Exam Constitutional WD/WN, vitals as above ENMT external ear and nose normal, oropharynx normal Neck trachea midline, no thyromegaly Respiratory normal respiratory effort, lungs clear to auscultation Cardiovascular RRR, no murmur, no edema Gastrointestinal (Abdomen) normal bowel sounds, soft, nontender, no hepatosplenomegaly Skin no rashes, warm and dry Discharge Data Allergies Allergy/AdvReac Type Severity Reaction Status Date / Time diphenhydramine Allergy Intermediate SWELLING Verified 08/08/22 10:06 Penicillins Allergy Intermediate SWELLING Verified 08/08/22 10:06 cashew nut Allergy FACIAL Verified 08/08/22 10:06 SWELLING contact metal agent Allergy welts, Verified 08/08/22 10:06 itching on skin aspirin AdvReac Intermediate NOSEBLEEDS Verified 08/08/22 10:06 Consultations 08/07/22 13:47 ED Decision to Admit Stat 08/07/22 16:20 Consult Gastroenterology Routine Procedures Performed Operation Date: 08/08/22 16:30 Actual Procedures p Colonoscopy - Kat Lane, Hospital Course (1) Acute GI bleeding: Presented with bright red blood per rectum, suspect lower GI bleed post colonos copy (postpolypectomy bleed) - Colonoscopy 5 days ago 16 polyps removed, then diarrhea 4-5AM BRBPR Q15-20M. Last bleeding at around 530 this morning. -Case discussed with GI. Recommended for admission and repeat scope. Was reviewed with the ER and Dr. Guadarrama, anticipate repeat colonoscopy today. Blood consult and type and cross on file - Hgb 18.2 on admission 14.8 now -Initial blood pressures 90/68 with heart rate 104, clinically volume contracted. Receiving fluid resuscitation then IV FM, currently BP 117/78 and P 82 -Continue LR 125 cc/h Hemoglobin transfusion threshold 7.0, or with symptomatic drop >2.0 N.p.o. H&H every 6 hours (2) CAD (coronary artery disease): CAD, history of STEMI 05/2020 s/p 3X DOUGLAS distal RCA into PDA Continue statin Follows with cardiology. Continued on DAPT, however can be maintained on aspirin monotherapy with clopidogrel held for noncardiac surgeries Preserved LV function S/P colonoscopy today with no active bleeding and per GI ok to resume Plavix (3) Diabetes: Impaired fasting glucose Last A1c 5.3% N.p.o. for the colonoscopy Defer SSI at this time Admitting glucose 119 (4) GERD (gastroesophageal reflux disease): - Resume home Famotidine (5) Tobacco abuse: Patient has been trying to quit and using nicotine patch at home (6) Mild persistent asthma: Continue home medications O2 saturation 98% on room air (7) Hypertension: Continue home medications BP stable at 121/68 (8) Hypothyroidism: Continue home dose of Levothyroxine Plan Patient discussed with Dr Maradiaga who assisted in the care and management of this patient Patient to follow up with PCP in 1 week and also to follow up with GI regarding the pathology and stool studies Follow a low fiber diet x 1 week and then increase to a high fiber diet Total Time Total Time Spent Total Time Spent (In Minutes): 40 Discharge Plan Discharge Items Patient Disposition: Home - Self-Care Reason For Visit: GIB Discharge Diagnosis: rectal bleed Condition on Discharge: Good Activity: Resume your previous activity Lifting: Gradually increase as tolerated Driving/Machine Use: Resume 1 day after discharge Weightbearing: Full weightbearing Non-emergency contact: Primary Care Provider Call non-emergency contact if: you have any medication questions and your symptoms worsen Follow-up/Referrals: Bárbara Wagner CRNP [Outside Practitioners] - 08/20/22 10:45 am Diet: Low Fiber Diet Comment: Low fiber diet for 1 week then increase to a high fiber diet Addtl Attending Provider Instructions: You were admitted for rectal bleeding after a colonoscopy. You had a repeat colonoscopy with no active bleeding Ok to resume home medications including the Plavix. Need to follow up with GI regarding the pathology of the polyps and biopsy Should also follow up with PCP Pending Studies at Discharge: Yes Studies:: Pathology from previous colonoscopy at outside facility Stand-Alone Forms: My [facility] [employer], Smoking Cessation Medications and DC Order Prescriptions: New levothyroxine [Synthroid] 75 mcg Tablet 18.75 mcg PO Q2D@0630 Qty: 10 0RF Rx Instructions: No rx needed patient has at home Continued famotidine 20 mg tablet 20 mg PO BID 90 Days Qty: 180 3RF estradiol 0.01 % (0.1 mg/gram) cream 1 g vaginal 2XWK Qty: 42.5 1RF Symbicort 80-4.5 mcg/actuation HFA aerosol inhaler 2 puff INH BID Qty: 3 1RF Rx Instructions: rinse mouth and spit after use. ezetimibe 10 mg tablet 10 mg PO DAILY Qty: 90 3RF atorvastatin 80 mg tablet 80 mg PO DAILY Qty: 90 3RF clopidogrel 75 mg tablet 75 mg PO QAM 90 Days Qty: 90 3RF losartan 25 mg tablet 12.5 mg PO QAM 90 Days Qty: 45 3RF levothyroxine 75 mcg tablet See Rx Instructions .ROUTE .COMPLEX Rx Instructions: 75 mcg orally; TAKES 75 MCG EVERY DAY, ADDS 1/4 OF TAB EVERY OTHER DAY TO TOTAL 93.73 MCG. montelukast 10 mg tablet 10 mg PO DAILY potassium chloride 20 mEq tablet extended release 20 meq PO DAILY coQ10 (ubiquinol) 100 mg capsule 400 mg PO DAILY azelastine 137 mcg (0.1 %) aerosol,spray 2 sprays intranasal BID mometasone 50 mcg/actuation spray,non-aerosol 2 sprays intranasal DAILY albuterol sulfate 90 mcg/actuation HFA aerosol inhaler 2 puffs inhalation Q4H PRN (Reason: shortness of breath or wheezing) Qty: 1 adapalene 0.1 % gel 1 appln topical DAILY cyanocobalamin (vitamin B-12) 1,000 mcg capsule 1,000 mcg PO DAILY fexofenadine-pseudoephedrine 60-120 mg tablet extended release 12 hr 1 tab PO BID guaifenesin [Mucinex] 600 mg tablet extended release 12hr 600 mg PO BID PRN (Reason: Nasal Congestion) nicotine 7 mg/24 hr patch 24 hour 1 patch transdermal Q24H Qty: 14 2RF cholecalciferol (vitamin D3) 50 mcg (2,000 unit) capsule 50 mcg PO DAILY naproxen sodium 550 mg tablet 550 mg PO BID Krill Oil ([place] 3 and 6) 1000-130(40-80) mg Capsule 1 cap PO DAILY nitroglycerin [Nitrostat] 0.4 mg Tablet, Sublingual 0.4 mg sublingual UD PRN (Reason: chest pain) 30 Days Qty: 60 1RF Rx Instructions: every 15 minutes for chest pain, max 3 doses in 24 hours aspirin 81 mg Tablet,Delayed Release (Dr/Ec) 81 mg PO QAM 30 Days Qty: 30 3RF benzonatate 200 mg capsule 200 mg PO TID carvedilol 25 mg tablet 25 mg PO 2XD Discharge Orders: Discharge Order (Routine); Ordered 08/08/22 Ordered By: Chanel Quinn Admission Data Admit Date/Time: 08/07/22 14:54 Attending Provider: Ulises Maradiaga Admit Provider: Jony Dubois Primary Care Provider: Austin Preciado Other Providers: Raul Guadarrama Other Interventions: Discharge Summary Assessment (RN) Last Done: 08/08/22 11:27 Supervising Physician Co-Signing Physician Notes Patient seen and examined at bedside. During face to face encounter, I obtained a history of hospital stay and physical exam. I discussed plan of care with MARISA Quinn and patient. Patient will be discharged with diagnosis of polypectomy bleed. Will have followup with GI and PCP. Hemoglobin stable, no signs of active bleeding I reviewed above note and agree with it. Coding Level of Care Code 79765 OBS Care - Discharge Diagnoses Acute GI bleeding K92.2 CAD (coronary artery disease) I25.10 Diabetes E11.9 GERD (gastroesophageal reflux disease) K21.9 Tobacco abuse Z72.0 Mild persistent asthma J45.30 Hypertension I10 Hypertension type: essential hypertension Hypothyroidism E03.9 Time Spent (min) 40
--- NOTE | 2022-08-08 14:22 | Anesthesiology Progress Note ---
Date of Service August 08, 2022 Anesthesia Post Procedure Vital Signs Vital Signs: Temp Pulse Pulse Resp BP Pulse Ox O2 Del Method 08/08/22 11:27 36.1 C L 84 16 116/64 97 08/08/22 11:31 77 16 121/68 98 Room Air 08/08/22 11:16 84 16 116/64 97 Room Air 08/08/22 11:02 97 H 16 80/52 L 95 Room Air 08/08/22 10:07 36.1 C L 76 18 124/65 96 Room Air 08/08/22 08:00 36.5 C 82 16 117/78 94 Room Air 08/08/22 07:00 89 08/08/22 05:00 36.7 C 84 14 142/84 H 93 Room Air 08/07/22 23:09 36.3 C L 82 16 140/88 96 Room Air 08/07/22 19:03 37.1 C 77 16 108/82 95 Room Air 08/07/22 16:16 88 08/07/22 16:16 Room Air 08/07/22 16:33 36.4 C L 95 H 18 118/71 98 Room Air 08/07/22 15:02 86 106/67 97 Room Air Transfer of Care Handoff Completed per policy Notes Mental Status: alert / awake / arousable and participated in evaluation Patient Amnestic to Procedure: Yes Nausea / Vomiting: adequately controlled Pain: adequately controlled Airway Patency, RR, SpO2: stable & adequate BP & HR: stable & adequate Hydration State: stable & adequate Anesthetic Complications: no major complications apparent and Pt Satisfied with anesthetic care
[2022-08-08] MEDS ORDERED: MONTELUKAST SODIUM 10 MG TABLET PO SCH (21:00)
--- NOTE | 2022-08-09 06:26 | Electrocardiogram Report ---
Test Reason : Blood Pressure : / mmHG Vent. Rate : 107 BPM Atrial Rate : 107 BPM P-R Int : 138 ms QRS Dur : 070 ms QT Int : 336 ms P-R-T Axes : 078 054 073 degrees QTc Int : 448 ms Sinus tachycardia Otherwise normal ECG When compared with ECG of 21-JUN-2021 20:00, No significant change was found Confirmed by Qamar Chavira ([id number]) on 08/09/2022 6:26:19 AM Referred By: Confirmed By:Qamar Chavira
[2022-08-09] MEDS ORDERED: LEVOTHYROXINE SODIUM 75 MCG TABLET PO SCH (06:30)
== END 2022-08-08 14:07 | disposition home or self-care (01) ==
LOC: 2E 12:56 → ED 12:56 → SUATTDRO 14:54 → 2E 15:34